=== PATIENT | male | born 1935 | race Caucasian/White ===

== ENCOUNTER 2016-12-19 15:52 | Inpatient (IN) | payer MEDICARE, OTHER ==
[~2016-12-19] VITALS: Ht 180.3 cm; Wt 68.3 kg
[2016-12-19] VITALS (16 sets, daily range): BP systolic 124–220; BP diastolic 74–113; PULSE 94–115; RESP 16–24; TEMP 98.5; O2SAT 95–99
[~2016-12-19 15:52] MED LIST: AMLO5TAB96 PO; ASPI81TA82 PO; ATOR20TA42 PO; BUME1TAB PO; CARV12.52 PO; CEPH500C3 PO; GLIP5 PO; GLUCTAB PO; SITA100 PO; SULF1TAB47 PO; VASO10TA8 PO
[2016-12-19] MEDS ORDERED: SODIUM CHLOR 0.9% 1000 ML INJ 1,000 ML IV ONE (15:55)
--- NOTE | 2016-12-19 16:12 | PD ---
HPI Chief Complaint: Stroke Alert Time Seen by Provider: 15:55 Travel History International Travel<30 days: No Contact w/Intl Traveler<30days: No History of Present Illness HPI The patient's 81 years old. He was last seen normal at approximately 5 hours prior to ER arrival. His left home to go to the chiropractor appointment she had. Upon returning home she found the patient on the floor with furniture strewn about the room. He was somewhat disoriented and his speech was abnormal. Asymmetry of the face was observed and the patient was brought to the ER after approximately 2 hours of observation at home. The patient cannot recall the events of the day and the history is provided primarily by his . He has diabetes and high cholesterol or high blood pressure. He has no history of stroke. The patient takes a baby aspirin daily. PFS Past Medical History Diabetes: Yes Hypertension: Yes Past Surgical History Other Surgery: Yes (l groin) Social History Alcohol Use: No Tobacco Use: No Substance Use: No Allergies-Medications (Allergen,Severity, Reaction): Coded Allergies: No Known Allergies (Unverified , 05/15/13) Reported Meds & Prescriptions Reported Meds & Active Scripts Active Reported Aspirin 81 (Aspirin) 81 Mg Tabdr 81 Mg PO DAILY Lisinopril 10 Mg Tab 10 Mg PO DAILY Amlodipine (Amlodipine Besylate) 5 Mg Tab 5 Mg PO DAILY Zocor (Simvastatin) 10 Mg Tab 10 Mg PO DAILY Metformin (Metformin HCl) 500 Mg Tab 500 Mg PO BIDPC With meals Carvedilol 12.5 Mg Tab 12.5 Mg PO BID Review of Systems Except as stated in HPI: all other systems reviewed are Neg Physical Exam Narrative GENERAL: 81-year-old male mild to moderate distress emesis on the patient's shirt SKIN: Focused skin assessment warm/dry. HEAD: Atraumatic. Normocephalic. EYES: Pupils equal and round. No scleral icterus. No injection or drainage. ENT: No nasal bleeding or discharge. Mucous membranes pink and moist. NECK: Trachea midline. No JVD. CARDIOVASCULAR: Irregular rhythm. Rate approximately 110. RESPIRATORY: No accessory muscle use. Clear to auscultation. Breath sounds equal bilaterally. GASTROINTESTINAL: Abdomen soft, non-tender, nondistended. Hepatic and splenic margins not palpable. MUSCULOSKELETAL: No obvious deformities. No clubbing. No cyanosis. No edema. NEUROLOGICAL: There is a depression of the right nasolabial fold. The handgrip on the right is weak compared to the left. There is a mild pronator drift on the right side. The patient's speech is mildly dysarthric. Patient is a and O 3 however somewhat confused. PSYCHIATRIC: normal affect; insight and judgment normal. Data Data Last Documented VS Vital Signs Date Time Temp Pulse Resp B/P Pulse Ox O2 Delivery O2 Flow Rate FiO2 12/19/16 17:00 115 18 190/99 97 Nasal Cannula 2 Orders Diet Npo (12/19/16 Dinner) Activity Bed Rest (12/19/16 ) Electrocardiogram (12/19/16 ) I-Stat Creatinine (12/19/16 15:55) I-Stat Profile (12/19/16 15:55) Prothrombin Time / Inr (Pt) (12/19/16 15:55) Act Partial Throm Time (Ptt) (12/19/16 15:55) Complete Blood Count With Diff (12/19/16 15:55) Fibrinogen (12/19/16 15:55) Creatine Kinase (Cpk) (12/19/16 15:55) Troponin I (12/19/16 15:55) Ua Includes Microscopic (12/19/16 15:55) Drug Screen, Random Urine (12/19/16 15:55) Type And Screen (12/19/16 15:55) Ct Brain W/O Iv Contrast(Rout) (12/19/16 ) Cta Brain W Iv Contrast W 3d (12/19/16 15:55) Cta Neck W Iv Contrast W 3d (12/19/16 15:55) Consult Neurology (12/19/16 ) Blood Glucose (12/19/16 15:55) Ecg Monitoring (12/19/16 15:55) Neuro Checks Q2HX12,Q4H (12/19/16 15:55) Nursing Bedside Swallow Assess .ONCE (12/19/16 15:55) Iv Access Insert/Monitor (12/19/16 15:55) NPO (12/19/16 15:55) Oximetry (12/19/16 15:55) Oxygen Administration (12/19/16 15:55) Sodium Chlor 0.9% 1000 Ml Inj (Ns 1000 M (12/19/16 15:55) Resp Oxygen Xu C Titrat 1-4 L (12/19/16 15:55) Cath For Specimen (12/19/16 15:55) (Hub Use Only)Inp Phy Cons/Ref (12/19/16 ) Prochlorperazine Inj (Compazine Inj) (12/19/16 16:15) Iohexol 350 Inj (Omnipaque 350 Inj) (12/19/16 16:20) Nicardipine Inj (Cardene Inj) (12/19/16 16:45) Chest, Single Ap (12/19/16 ) Lorazepam Inj (Ativan Inj) (12/19/16 16:45) Lorazepam Inj (Ativan Inj) (12/19/16 16:45) Mri Brain W/O Contrast (12/19/16 ) Lipid Profile (12/19/16 17:52) Clopidogrel (Plavix) (12/20/16 09:00) Echo 2d Comp W/Dopp(Routine) (12/19/16 ) Nih Stroke Scale - Nihss .On admission and discharge (12/19/16 17:53) Neuro Checks Q2HX12,Q4H (12/19/16 17:53) Ot Request For Service (12/19/16 17:53) Consult Pt Eval & Treat (12/19/16 17:53) Swallow Eval W/ St (12/19/16 17:53) Case Management Consult (12/19/16 ) Nursing Bedside Swallow Assess .ONCE (12/19/16 17:53) Scd Bilateral/Knee High CATHI.QSHIFT (12/19/16 17:53) Hemoglobin (Hgb) A1c (12/19/16 17:53) Resp Oxygen Xu C Titrat 1-4 L (12/19/16 ) ^ Hold Medication (12/19/16 17:53) Sodium Chloride 0.9% Flush (Ns Flush) (12/19/16 21:00) Sodium Chloride 0.9% Flush (Ns Flush) (12/19/16 18:00) Bedside Glucose CATHI.AC&HS (12/19/16 17:53) ^ Discontinue Insulin Orders (12/19/16 17:53) Insulin Aspart Supplemtl Scale (Novolog (12/19/16 21:00) Dextrose 50% In Jael (Vial) Inj (D50w (Vi (12/19/16 18:00) Glucagon Inj (Glucagon Inj) (12/19/16 18:00) Consult Rehab Medicine (12/19/16 17:53) Survey Research Center Director / Telemetry CATHI.Q8H (12/19/16 17:53) Consult Stoke Navigator (12/19/16 ) Enoxaparin Inj (Lovenox Inj) (12/19/16 20:00) Scd Bilateral/Knee High CATHI.BID (12/19/16 17:53) Admit Order (Ed Use Only) (12/19/16 17:58) Labs Laboratory Tests Test 12/19/16 12/19/16 16:10 16:20 White Blood Count 13.5 TH/MM3 Red Blood Count 4.58 MIL/MM3 Hemoglobin 14.6 GM/DL Bedside Hemoglobin 15.0 G/DL Hematocrit 43.1 % Bedside Hematocrit 44.0 % Mean Corpuscular Volume 94.1 FL Mean Corpuscular Hemoglobin 31.8 PG Mean Corpuscular Hemoglobin 33.8 % Concent Red Cell Distribution Width 13.3 % Platelet Count 149 TH/MM3 Mean Platelet Volume 9.4 FL Neutrophils (%) (Auto) 89.1 % Lymphocytes (%) (Auto) 6.2 % Monocytes (%) (Auto) 4.2 % Eosinophils (%) (Auto) 0.1 % Basophils (%) (Auto) 0.4 % Neutrophils # (Auto) 12.0 TH/MM3 Lymphocytes # (Auto) 0.8 TH/MM3 Monocytes # (Auto) 0.6 TH/MM3 Eosinophils # (Auto) 0.0 TH/MM3 Basophils # (Auto) 0.1 TH/MM3 CBC Comment AUTO DIFF Differential Comment AUTO DIFF CONFIRMED Platelet Estimate NORMAL Platelet Morphology Comment NORMAL Red Cell Morphology Comment NORMAL Prothrombin Time 12.1 SEC Prothromb Time International 1.1 RATIO Ratio Activated Partial 23.0 SEC Thromboplast Time Fibrinogen 443 mg/dL Bedside Sodium 133 MMOL/L Bedside Potassium 5.2 MMOL/L Bedside Chloride 96 MMOL/L Bedside Blood Urea Nitrogen 19 MG/DL Bedside Creatinine 1.0 MG/DL Bedside Glucose 302 MG/DL Total Creatine Kinase 104 U/L Troponin I LESS THAN 0.02 NG/ML Blood Type A POSITIVE Antibody Screen NEGATIVE Blood Bank Comment Urine Color YELLOW Urine Turbidity CLEAR Urine pH 7.0 Urine Specific [place] 1.019 Urine Protein 100 mg/dL Urine Glucose (UA) 1000 mg/dL Urine Ketones 10 mg/dL Urine Occult Blood SMALL Urine Nitrite NEG Urine Bilirubin NEG Urine Urobilinogen LESS THAN 2.0 MG/DL Urine Leukocyte Esterase NEG Urine RBC LESS THAN 1 /hpf Urine WBC 1 /hpf Urine Hyaline Casts 4 /lpf Microscopic Urinalysis Comment Urine Opiates Screen NEG Urine Barbiturates Screen NEG Urine Amphetamines Screen NEG Urine Benzodiazepines Screen NEG Urine Cocaine Screen NEG Urine Cannabinoids Screen NEG MDM Medical Screen Exam Complete: Yes Emergency Medical Condition: Yes Differential Diagnosis ischemic stroke, hemorrhagic stroke, seizure, Samuel's paralysis Narrative Course Plan of care to electrolytes are to significant for potassium of 5.2, glucose of 302, and a BUN/creatinine ratio of 19/1.00. The case was discussed with Dr. Wong. He was last seen normal 5 hours prior to arrival and is 81 years of age and is therefore not a candidate for TPA. EKG reveals an irregular rhythm with a rate of 110 Case discussed with radiology at about 4:15 PM and there is no acute intracranial pathology on head CT. I spoke with Dr. Slater at 5:20 PM and upon his review of the vascular imaging of the head there is no acute obstructive lesion. Patient remained somewhat agitated however 0.5 mg IV was required to prevent him from continuing to remove his IV access and disrupt care including Cardene gtt. Critical Care Narrative Aggregate critical care time was 45 minutes. Time to perform other separately billable procedures was not included in the critical care time. My time did not include minutes spent treating any other patients simultaneously or on activities that did not directly contribute to the patient's treatment. The services I provided to this patient were to treat and/or prevent clinically significant deterioration that could result in: Permanent neurologic deficit, cardiopulmonary arrest I provided critical care services requiring my management, as noted below: Chart data review, documentation time, medication orders and management, vital sign assessments/reviewing monitor data, ordering and reviewing lab tests, ordering and interpreting/reviewing x-rays and diagnostic studies, care of the patient and discussion of the patient with the admitting physicians. Stroke Alert NIHSS NIH Stroke Scale Result: 6 NIHSS Time Completed: 15:55 Thrombolytic Contraindications Contraindications Comment: The patient arrived to the ER within 6 hours of the onset of symptoms. His vascular imaging revealed no lesion amenable to intervention. The head CT showed no bleed. An 81 years of age arriving in greater than 4.5 hours after onset of symptoms TPA is contraindicated. Diagnosis Diagnosis: Primary Impression: CVA (cerebral vascular accident) Qualified Code: I63.9 - Cerebrovascular accident (CVA), unspecified mechanism Additional Impressions: Hyperkalemia Tachycardia HTN (hypertension) Qualified Code: I10 - Essential hypertension Admitting Physician Requests: Admit Mayito Rivera MD Dec 19, 2016 16:12
[2016-12-19] MEDS ORDERED: PROCHLORPERAZINE INJ 10 MG/2 ML VIAL IV PUSH ONE (16:15)
[2016-12-19 16:20] LABS: I-STAT POTASSIUM 5.2 MMOL/L (3.5-4.9); I-STAT SODIUM 133 MMOL/L (138-146)
[2016-12-19] MEDS ORDERED: IOHEXOL 350 MG/ML 10 ML VIAL (for RAD DIAG) IV ONE (16:20)
[2016-12-19 16:21] LABS: BASOPHIL # 0.1 TH/MM3 (0-0.2); BASOPHIL % 0.4 % (0.0-2.0); EOSINOPHIL % 0.1 % (0.0-4.0); HEMATOCRIT 43.1 % (39.0-51.0); HEMO FLAGS AUTO DIFF; LYMPH % 6.2 % (9.0-44.0); LYMPHOCYTE # 0.8 TH/MM3 (1.0-4.8); MEAN CELL VOLUME 94.1 FL (80.0-100.0); MEAN CORPUSCULAR HEMOGLOBIN 31.8 PG (27.0-34.0); MEAN CORPUSCULAR HGB CONC 33.8 % (32.0-36.0); MONO % 4.2 % (0.0-8.0); NEUT % 89.1 % (16.0-70.0); PLATELET COUNT 149 TH/MM3 (150-450); RED BLOOD COUNT 4.58 MIL/MM3 (4.50-5.90); RED CELL DISTRIBUTION WIDTH 13.3 % (11.6-17.2); WHITE BLOOD COUNT 13.5 TH/MM3 (4.0-11.0)
--- NOTE | 2016-12-19 16:23 | RADRPT ---
EXAM DATE/TIME: 12/19/2016 15:54 [facility] COMPARISON: No previous studies available for comparison. INDICATIONS : Stroke alert. Altered mental status. RADIATION DOSE: 56.35 CTDIvol (mGy) This report was called by Dr. Spann to Dr. Rivera at 1620 MEDICAL HISTORY : Non-responsive. SURGICAL HISTORY : Non-responsive. ENCOUNTER: Initial ACUITY: 1 day PAIN SCALE: Non-responsive LOCATION: cranial TECHNIQUE: Multiple contiguous axial images were obtained of the head. Using automated exposure control and adj ustment of the mA and/or kV according to patient size, radiation dose was kept as low as reasonably a chievable to obtain optimal diagnostic quality images. FINDINGS: CEREBRUM: The ventricles are normal for age. Periventricular areas of increased attenuation are characteristic of moderately severe small vessel ischemic demyelination. No evidence of midline shift, mass lesion, hemorrhage or acute infarction. No extra-axial fluid collections are seen. POSTERIOR FOSSA: Atrophic changes in the left cerebellar hemisphere. Nothing acute. EXTRACRANIAL: The visualized portion of the orbits is intact. Mucoperiosteal thickening in the maxillary antra bila terally SKULL: The calvaria is intact. No evidence of skull fracture. CONCLUSION: 1. 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 2. Atrophic changes in the left cerebellar hemisphere. 3. Nothing acute. Andrea Spann MD on December 19, 2016 at 16:16 Board Certified Radiologist. This report was verified electronically.
[2016-12-19] MEDS ORDERED: METF500T PO (16:37)
[2016-12-19] MEDS ORDERED: ZOCO10TA PO (16:37)
[2016-12-19] MEDS ORDERED: CARV12.52 PO (16:37)
[2016-12-19] MEDS ORDERED: LISI10TA3 PO (16:37)
[2016-12-19] MEDS ORDERED: ASPI-110 PO (16:37)
[2016-12-19] MEDS ORDERED: AMLO5TAB2 PO (16:37)
[2016-12-19] MEDS ORDERED: LORazepam 2 MG/ML VIAL IV PUSH ONE ×2 (16:45)
[2016-12-19] MEDS ORDERED: niCARdipine INJ 25 MG in SODIUM CHLOR 0.9% 250 ML INJ 250 ML IV SCH (16:45)
[2016-12-19 16:46] LABS: INTERNATIONAL NORMALIZED RATIO 1.1 RATIO; PROTHROMBIN TIME - PATIENT 12.1 SEC (9.8-11.6)
--- NOTE | 2016-12-19 16:54 | RADRPT ---
EXAM DATE/TIME: 12/19/2016 16:00 [facility] COMPARISON: CT BRAIN W/O CONTRAST, December 19, 2016, 15:54. INDICATIONS : Stroke alert. AMS. IV CONTRAST: 75 cc Omnipaque 350 (iohexol) IV RADIATION DOSE: 28.36 CTDIvol (mGy) MEDICAL HISTORY : Non-responsive. SURGICAL HISTORY : Non-responsive. ENCOUNTER: Initial ACUITY: 1 day PAIN SCALE: Non-responsive LOCATION: cranial TECHNIQUE: Volumetric scanning was performed using a multi-row detector CT scanner. The data was post processed with a variety of visualization algorithms including full volume maximum intensity projection, multi -planar sliding thin slab reformation, curved planar reformation, and surface rendering techniques. Using automated exposure control and adjustment of the mA and/or kV according to patient size, radiat ion dose was kept as low as reasonably achievable to obtain optimal diagnostic quality images. FINDINGS: There is normal anatomic branching of the great vessels from the aortic arch. The origins of the grea t vessels are widely patent. Right carotid: The right common carotid is widely patent. There is mild atherosclerotic plaquing at the bifurcation. There is only minimal stenosis. The more cephalad portions of internal carotid are widely patent. Left carotid: The common carotid is widely patent. There is mild atherosclerotic plaquing at the bifurcation. This results in approximately 20% stenosis at the bulb. No hemodynamically significant lesion is seen. The more cephalad portions of internal carotid are widely patent. Vertebral circulation: Both vertebral arteries are widely patent. The basilar artery is widely patent. Intracranial circulation: The distal internal carotid circulation is widely patent. The appearance of the anterior and middle c erebral circulation is within normal limits. The basilar is widely patent. The posterior cerebral circulation is widely patent. CONCLUSION: 1. No large or central vessel occlusion identified. The intracranial circulation appears widely paten t. 2. Mild stenosis at the origin of the left internal carotid. 3. The right carotid circulation is widely patent. 4. The vertebral circulation is widely patent. Mayito Slater MD on December 19, 2016 at 16:50 Board Certified Radiologist. This report was verified electronically.
[2016-12-19 16:58] LABS: BLOOD, URINE SMALL (NEG); GLUCOSE,URINE 1000 mg/dL (NEG); HYALINE CAST, URINE 4 /lpf (RARE); KETONE, URINE 10 mg/dL (NEG); NITRITE,URINE NEG (NEG); URINE COLOR YELLOW (YELLW/STRAW)
[2016-12-19 17:03] LABS: AMPHETAMINE, URINE NEG (NEG); BARBITURATES, URINE NEG (NEG); COCAINE, URINE NEG (NEG)
[2016-12-19 17:05] LABS: PLATELET ESTIMATE SMEAR NORMAL (NORMAL); PLATELET MORPHOLOGY NORMAL (NORMAL); SCAN/DIFF AUTO DIFF CONFIRMED
--- NOTE | 2016-12-19 17:23 | RADRPT ---
EXAM DATE/TIME: 12/19/2016 16:00 [facility] COMPARISON: CT BRAIN W/O CONTRAST, December 19, 2016, 15:54. INDICATIONS : Stroke alert, altered mental status. IV CONTRAST: 75 cc Omnipaque 350 (iohexol) IV ; Cumulative dose for multiple exams. RADIATION DOSE: 28.36 CTDIvol (mGy) ; Combined studies MEDICAL HISTORY : Non-responsive. SURGICAL HISTORY : Non-responsive. ENCOUNTER: Initial ACUITY: 1 day PAIN SCALE: Non-responsive LOCATION: neck Elevated flow velocities and ICA/CCA ratios have been found to correlate with increased degrees of vessel stenosis, calculated as percentage of diameter relative to a normal segment of distal ICA/CCA. TECHNIQUE: Volumetric scanning was performed using a multirow detector CT scanner. The data was post processed with a variety of visualization algorithms including full-volume maximum intensity projection, multip lanar sliding thin-slab reformation, curved-planar reformation, and surface-rendering techniques. Us ing automated exposure control and adjustment of the mA and/or kV according to patient size, radiatio n dose was kept as low as reasonably achievable to obtain optimal diagnostic quality images. FINDINGS: AORTIC ARCH: There is a three-vessel origin of the great vessels from the aorta. No evidence of ostial narrowing. RIGHT CAROTID: The common carotid artery is widely patent. There is mild atherosclerotic plaquing at the bifurcation . This results in minimal stenosis at the origin of the right internal carotid. The more cephalad por tion of the carotid is widely patent. LEFT CAROTID: The common carotid is widely patent. There is mild calcified atherosclerotic plaque at the bifurcatio n this results in stenosis of the origin of the internal carotid estimated to range of 10-15% by NASC ET criteria. VERTEBRALS: The vertebral arteries have a symmetric diameter. No stenotic lesions are seen. CONCLUSION: 1. Atherosclerotic plaquing at the origin of the left internal carotid with mild stenosis. 2. Minimal plaquing at the origin the right internal carotid. No hemodynamically significant lesion i s evident. 3. Both vertebral arteries are widely patent. Mayito Slater MD on December 19, 2016 at 17:19 Board Certified Radiologist. This report was verified electronically.
--- NOTE | 2016-12-19 17:24 | RADRPT ---
EXAM DATE/TIME: 12/19/2016 16:53 [facility] COMPARISON: No previous studies available for comparison. INDICATIONS : Fall and difficulty breathing. MEDICAL HISTORY : unobtainable SURGICAL HISTORY : unobtainable ENCOUNTER: Initial ACUITY: 1 day PAIN SCORE: Non-responsive. LOCATION: Bilateral upper chest FINDINGS: The heart is normal in size. The lungs are clear. No pneumothorax is seen. The visualized bony struct ures are grossly intact. CONCLUSION: 1. No acute cardiopulmonary findings. Mayito Slater MD on December 19, 2016 at 17:21 Board Certified Radiologist. This report was verified electronically.
[2016-12-19 17:30] LABS: CREATINE KINASE 104 U/L (39-308)
[2016-12-19] MEDS ORDERED: GLUCAGON 1 MG/ML VIAL IM/SQ PRN (18:00)
[2016-12-19] MEDS ORDERED: DEXTROSE 50% IN WATER 50 ML VIAL(D50) IV PUSH PRN (18:00)
[2016-12-19] MEDS ORDERED: SODIUM CHLORIDE 0.9% FLUSH 10 ML FLUSH IV FLUSH PRN ×2 (18:00→18:15)
--- NOTE | 2016-12-19 18:06 | HHI.HP ---
[facility] Gabrielle Mcmahan Admission Diagnosis CVA Alert Diagnoses: Travel History International Travel<30 Days: No Contact w/Intl Traveler <30 Da: No History of Present Illness This is an 81-year-old male with past medical history diabetes, hypertension and hyperlipidemia. Patient presented as a stroke alert. Patient was last seen normal proximally 5 hours prior to ER arrival. Information is obtained from the medical record and from the patient's . According to the , she had gone to the chiropractor and when she returned home she found the patient on the floor and he appeared to be sleeping. She woke him up, and noted that his speech was not making sense, she also noted some asymmetry to the right face. At that time, she call for [employer] neighbors who carried the patient to the car and brought him to the emergency room. There is no prior history of stroke. Patient does take a baby aspirin. In the emergency room, patient was evaluated in neuro workup was initiated. Case was discussed with Dr. Wong. Patient not a candidate for TPA as he was out of window of time. EKG was completed shows irregular rhythm with rate of 110. Imaging studies were completed as noted below. Last Impressions Neck CTA 12/19/161554 Signed Impressions: Service Date/Time: Monday, December 19, 2016 16:00 - CONCLUSION: 1. Atherosclerotic plaquing at the origin of the left internal carotid with mild stenosis. 2. Minimal plaquing at the origin the right internal carotid. No hemodynamically significant lesion is evident. 3. Both vertebral arteries are widely patent. Mayito Slater MD Head CTA 12/19/16 1555 Signed Impressions: Service Date/Time: Monday, December 19, 2016 16:00 - CONCLUSION: 1. No large or central vessel occlusion identified. The intracranial circulation appears widely patent. 2. Mild stenosis at the origin of the left internal carotid. 3. The right carotid circulation is widely patent. 4. The vertebral circulation is widely patent. Mayito Slater MD Head CT 12/19/16 0000 Signed Impressions: Service Date/Time: Monday, December 19, 2016 15:54 - CONCLUSION: 1. 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 2. Atrophic changes in the left cerebellar hemisphere. 3. Nothing acute. Andrea Spann MD Chest X-Ray 12/19/16 0000 Signed Impressions: Service Date/Time: Monday, December 19, 2016 16:53 - CONCLUSION: 1. No acute cardiopulmonary findings. Mayito Slater MD Blood pressure was initially elevated 220/103, heart rate up to 115. Patient appears to be in sinus tachycardia. Patient was noted agitated, Ativan 0.5 mg IV was given. A Cardene drip was also initiated due to high blood pressure. Patient is now examined in the emergency room, he is more calm, he does awake to voice and is oriented to place, able to name hospital. Provide his name, and 's When asked the year, he gives date of . Patient doesn't have recall why he came here. He does endorse that he did feel dizzy today, especially when he got out of bed. According to the yesterday he told her he was not feeling well and complaining of his legs feeling weak and painful. Patient is noted with a right facial droop. He is having some difficulty recalling events, speech is slightly dysarthric. There is no pronator drift noted. He is following simple commands. He is asking for something to drink. Patient is admitted for further evaluation and treatment. Review of Systems ROS Limitations: Altered Mental Status Constitutional: COMPLAINS OF: Dizziness Past Family Social History Past Medical History Hypertension Type 2 diabetes Hyperlipidemia Past Surgical History Left groin surgery Lump removal from scalp Reported Medications Reported Meds & Active Scripts Active Reported Aspirin 81 (Aspirin) 81 Mg Tabdr 81 Mg PO DAILY Lisinopril 10 Mg Tab 10 Mg PO DAILY Amlodipine (Amlodipine Besylate) 5 Mg Tab 5 Mg PO DAILY Zocor (Simvastatin) 10 Mg Tab 10 Mg PO DAILY Metformin (Metformin HCl) 500 Mg Tab 500 Mg PO BIDPC With meals Carvedilol 12.5 Mg Tab 12.5 Mg PO BID Allergies: Coded Allergies: No Known Allergies (Unverified , 05/15/13) Active Ordered Medications Inpatient Medications Clopidogrel Bisulfate (Plavix) 75 mg DAILY PO ; Start 12/20/16 at 09:00 Dextrose (D50w (Vial) Inj) 25 ml UNSCH PRN IV PUSH HYPOGLYCEMIA-SEE COMMENTS; Start 12/19/16 at 18:00 Enoxaparin Sodium (Lovenox Inj) 40 mg Q24H SQ ; Start 12/19/16 at 20:00 Glucagon (Glucagon Inj) 1 mg UNSCH PRN IM/SQ HYPOGLYCEMIA-SEE COMMENTS; Start 12/19/16 at 18:00 Insulin Aspart (NovoLOG SUPPLEMENTAL SCALE) 1 ACHS SLIDING SCALE SQ ; Start 12/19/16 at 21:00 Lorazepam (Ativan Inj) 0.25 mg ONCE ONCE IV PUSH Last administered on 16:43; Start 12/19/16 at 16:45; Stop 12/19/16 at 16:46; Status DC Nicardipine HCl/ Sodium Chloride (Cardene Inj/NS 250 ml Inj) 260 ml @ 0 mls/hr TITRATE IV Last administered on 12/19/16 17:08; Start 12/19/16 at 16:45 Prochlorperazine Edisylate 10 mg 10 mg ONCE ONCE IV PUSH Last administered on 12/19/16 16:15; Start 12/19/16 at 16:15; Stop 12/19/16 at 16:16; Status DC Sodium Chloride (NS 1000 ml Inj) 1,000 ml @ 70 mls/hr [id number] ONCE IV Last administered on 12/19/16 16:15; Start 12/19/16 at 15:55; Stop 12/20/16 at 06:12 Sodium Chloride (NS Flush) 2 ml UNSCH PRN IV FLUSH FLUSH AFTER USING IV ACCESS ; Start 12/19/16 at 18:00 Family History Per , his mother of old age, she's not sure of their past medical history. Social History Patient is , lives at home with . He has 2 grown children whom he has very little contact with. Patient remains relatively active, he still drives, doesn't use any assistive devices. He is slow to move around but otherwise remains active. Physical Exam Vital Signs Vital Signs Date Time Temp Pulse Resp B/P Pulse Ox O2 Delivery O2 Flow Rate FiO2 12/19/16 17:00 115 18 190/99 97 Nasal Cannula 2 12/19/16 16:15 111 18 189/99 98 Room Air 12/19/16 16:12 112 18 205/113 98 Nasal Cannula 2 12/19/16 16:00 111 24 220/103 98 Nasal Cannula 2 12/19/16 15:56 112 20 196/104 99 Nasal Cannula 2 12/19/16 15:55 94 18 220/99 95 12/19/16 15:55 112 22 99 Nasal Cannula 2 12/19/16 15:52 16 95 Room Air 12/19/16 15:52 95 Nasal Cannula 2 Physical Exam GENERAL: This is a well-nourished, well-developed patient, in no apparent distress. SKIN: Abrasions noted to both elbows HEAD: Atraumatic. Normocephalic. No temporal or scalp tenderness. EYES: Pupils equal round and reactive. Extraocular motions intact. No scleral icterus. No injection or drainage. ENT: Nose without bleeding, purulent drainage or septal hematoma. Throat without erythema, tonsillar hypertrophy or exudate. Uvula midline. Airway patent. NECK: Trachea midline. No JVD or lymphadenopathy. Supple, nontender, no meningeal signs. CARDIOVASCULAR: S1 and S2, sinus tachycardia. Unable to detect any murmurs rubs or gallops. RESPIRATORY: Clear to auscultation. Breath sounds equal bilaterally. No wheezes , rales, or rhonchi. GASTROINTESTINAL: Abdomen soft, non-tender, nondistended. No hepato-splenomegaly , or palpable masses. No guarding. MUSCULOSKELETAL: Extremities without clubbing, cyanosis, or edema. No joint tenderness, effusion, or edema noted. No calf tenderness. Negative Homans sign bilaterally. NEUROLOGICAL: Awakes to voice, oriented to place, self, others. Following simple commands. Bilateral upper extremity strength 4 out of 5. Lower extremity strength 4 out of 5. Slight right facial droop. Speech slightly dysarthric. Laboratory Laboratory Tests Test 12/19/16 12/19/16 16:10 16:20 White Blood Count 13.5 Red Blood Count 4.58 Hemoglobin 14.6 Bedside Hemoglobin 15.0 Hematocrit 43.1 Bedside Hematocrit 44.0 Mean Corpuscular Volume 94.1 Mean Corpuscular Hemoglobin 31.8 Mean Corpuscular Hemoglobin 33.8 Concent Red Cell Distribution Width 13.3 Platelet Count 149 Mean Platelet Volume 9.4 Neutrophils (%) (Auto) 89.1 Lymphocytes (%) (Auto) 6.2 Monocytes (%) (Auto) 4.2 Eosinophils (%) (Auto) 0.1 Basophils (%) (Auto) 0.4 Neutrophils # (Auto) 12.0 Lymphocytes # (Auto) 0.8 Monocytes # (Auto) 0.6 Eosinophils # (Auto) 0.0 Basophils # (Auto) 0.1 CBC Comment AUTO DIFF Differential Comment AUTO DIFF CONFIRMED Platelet Estimate NORMAL Platelet Morphology Comment NORMAL Red Cell Morphology Comment NORMAL Prothrombin Time 12.1 Prothromb Time International 1.1 Ratio Activated Partial 23.0 Thromboplast Time Fibrinogen 443 Bedside Sodium 133 Bedside Potassium 5.2 Bedside Chloride 96 Bedside Blood Urea Nitrogen 19 Bedside Creatinine 1.0 Bedside Glucose 302 Total Creatine Kinase 104 Troponin I LESS THAN 0.02 Blood Type A POSITIVE Antibody Screen NEGATIVE Blood Bank Comment Urine Color YELLOW Urine Turbidity CLEAR Urine pH 7.0 Urine Specific Ector 1.019 Urine Protein 100 Urine Glucose (UA) 1000 Urine Ketones 10 Urine Occult Blood SMALL Urine Nitrite NEG Urine Bilirubin NEG Urine Urobilinogen LESS THAN 2.0 Urine Leukocyte Esterase NEG Urine RBC LESS THAN 1 Urine WBC 1 Urine Hyaline Casts 4 Microscopic Urinalysis Comment Urine Opiates Screen NEG Urine Barbiturates Screen NEG Urine Amphetamines Screen NEG Urine Benzodiazepines Screen NEG Urine Cocaine Screen NEG Urine Cannabinoids Screen NEG Result Diagram: 12/19/16 1610 Imaging Last Impressions Neck CTA 12/19/16 1555 Signed Impressions: Service Date/Time: Monday, December 19, 2016 16:00 - CONCLUSION: 1. Atherosclerotic plaquing at the origin of the left internal carotid with mild stenosis. 2. Minimal plaquing at the origin the right internal carotid. No hemodynamically significant lesion is evident. 3. Both vertebral arteries are widely patent. Mayito Slater MD Head CTA 12/19/16 1555 Signed Impressions: Service Date/Time: Monday, December 19, 2016 16:00 - CONCLUSION: 1. No large or central vessel occlusion identified. The intracranial circulation appears widely patent. 2. Mild stenosis at the origin of the left internal carotid. 3. The right carotid circulation is widely patent. 4. The vertebral circulation is widely patent. Mayito Slater MD Head CT 12/19/16 0000 Signed Impressions: Service Date/Time: Monday, December 19, 2016 15:54 - CONCLUSION: 1. 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 2. Atrophic changes in the left cerebellar hemisphere. 3. Nothing acute. Andrea Spann MD Chest X-Ray 12/19/16 0000 Signed Impressions: Service Date/Time: Monday, December 19, 2016 16:53 - CONCLUSION: 1. No acute cardiopulmonary findings. Mayito Slater MD Assessment and Plan Problem List: (1) CVA (cerebral vascular accident) (2) HTN (hypertension) (3) Diabetes 1.5, managed as type 2 (4) Hyperkalemia (5) Tachycardia (6) Hyperlipidemia Assessment and Plan Admitted to Dr. Al 81-year-old male with history hypertension, hyperlipidemia and type 2 diabetes. Presented to the emergency room with slurred speech, disoriented, facial asymmetry. Patient did not meet criteria for TPA. 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 Acute CVA -Continue with neuro checks -Continue with Plavix 75 mg by mouth daily, resume baby aspirin Neurology consultation, patient has been evaluated by Dr. Wong her input is appreciated. Neuro workup has been initiated -MRI of the brain has been ordered, follow up on results Imaging studies have been reviewed Normal saline at 70 an hour Head of bed down We'll have nursing perform a bedside swallow, keep NPO for now PT, OT, ST has been ordered -Lipid profile and hemoglobin A1c Type 2 diabetes, blood glucose uncontrolled Accu-Cheks before meals and at bedtime with insulin therapy as needed Hypertension, initially uncontrolled now improving. Was started on Cardene drip in the emergency room. -Permissive hypertension Wean off Cardene drip -Resume home medications tomorrow, Coreg, lisinopril, Norvasc Sinus tachycardia, patient was initially agitated. Heart rate is coming down. Continuous cardiac telemetry Continue to monitor for now Hyperlipidemia Lipid profile has been ordered Resume Zocor 10 mg by mouth daily Hyperkalemia Repeat BMP in the morning SCDs and Lovenox for DVT prophylaxis Home medications have been reviewed, initiated as indicated Plan of care has been discussed with the patient and his , their questions answered detail. Plan of care discussed with attending and registered nurse. Further management of the patient will be dependent on the hospital course This patient was seen by myself and Dr. Al, this H&P is written on her behalf Physician Certification 2 Midnight Certification Type: Admission for Inpatient Services Order for Inpatient Services The services are ordered in accordance with Medicare regulations or non- Medicare payer requirements, as applicable. In the case of services not specified as inpatient-only, they are appropriately provided as inpatient services in accordance with the 2-midnight benchmark. Estimated LOS (days): 2 2 days is the estimated time the patient will need to remain in the hospital, assuming treatment plan goals are met and no additional complications. Post-Hospital Plan: Not yet determined Problem Qualifiers (1) CVA (cerebral vascular accident): Qualified Code: I63.9 - Cerebrovascular accident (CVA), unspecified mechanism (2) HTN (hypertension): Qualified Code: I10 - Essential hypertension (3) Hyperlipidemia: Qualified Code: E78.5 - Hyperlipidemia, unspecified hyperlipidemia type Josee JuarezP Dec 19, 2016 18:06
[2016-12-19] MEDS ORDERED: ONDANSETRON HCL 4 MG/2 ML VIAL IVP PRN (18:15)
[2016-12-19] MEDS ORDERED: NALOXONE HCL 0.4 MG/ML AMP IV PRN (18:15)
[2016-12-19] MEDS ORDERED: ACETAMINOPHEN 325 MG TAB PO PRN (18:15)
[2016-12-19] MEDS: ENOXAPARIN SODIUM 40 MG/0.4 ML SYRINGE SQ SCH (20:00)
[2016-12-19] MEDS: SODIUM CHLORIDE 0.9% FLUSH 10 ML FLUSH IV FLUSH SCH (20:05)
[2016-12-19] MEDS: CARVEDILOL 12.5 MG TAB PO SCH (20:05)
[2016-12-19] MEDS ORDERED: CHLORHEXIDINE GLUCONATE 2 % 1 PACK (2 CLOTHS)(extra cloths) TOPICAL PRN (20:45)
[2016-12-19] MEDS: INSULIN ASPART SUPPLEMENTAL SCALE SQ SCH (21:00)
[2016-12-19] MEDS ORDERED: SODIUM CHLORIDE 0.9% FLUSH 10 ML FLUSH IV FLUSH SCH (21:00)
[2016-12-19] MEDS: CHLORHEXIDINE GLUCONATE 2 % 1 PACK (2 CLOTHS)(taper/protocol) TOPICAL SCH (21:00)
--- NOTE | 2016-12-19 21:08 | RADRPT ---
EXAM DATE/TIME: 12/19/2016 20:04 [facility] COMPARISON: CT BRAIN W/O CONTRAST, December 19, 2016, 15:54. INDICATIONS : Inability to ambulate. Altered mental status. MEDICAL HISTORY : Hypertension. Diabetes mellitus type 2. SURGICAL HISTORY : None. ENCOUNTER: Initial ACUITY: 1 day PAIN SCORE: 0/10 LOCATION: Cranial TECHNIQUE: Multiplanar, multisequence MRI of the brain was performed without contrast. FINDINGS: The ventricles and cortical sulci are mildly widened. There is some mild increased sig nal seen in the periventricular white matter on the FLAIR images. No areas of abnormality are seen i n the diffusion weighted images to suggest acute infarction. There is encephalomalacia involving the inferior left cerebellar hemisphere. There is mucosal disease at the maxillary sinuses bilaterally. 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 CONCLUSION: 1. No acute intracranial abnormality is seen. 2. Age related atrophy and suspected small vessel ischemic change in the periventricular white matter . 3. 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 4. Maxillary sinus disease. Dheeraj Severino MD on December 19, 2016 at 20:43 Board Certified Radiologist. This report was verified electronically.
[2016-12-19 21:40] LABS: HEMOGLOBIN A1a 1.8 %; HEMOGLOBIN A1b 1.1 %; HEMOGLOBIN Ao 75.5 %; HEMOGLOBIN F 1.7 %; HEMOGLOBIN LA1C 3.3 %
--- NOTE | 2016-12-19 22:33 | MB ---
cc: BAKARI MILES MD DATE OF CONSULTATION 12/19/16 DATE OF 35 REASON FOR CONSULTATION Stroke alert. HISTORY OF PRESENT ILLNESS The patient is an 81-year-old man who his had seen last normal at 11 o'clock five hours prior to arrival. She had left apparently to go to an appointment. When she came home, she found him on the floor with the furniture thrown about the room, disoriented, speech was abnormal, facial asymmetry, came into the ER. The patient is a poor historian, cannot give me any history. PAST MEDICAL HISTORY 1. Diabetes, 2. Hyperlipidemia, 3. Hypertension. 4. No past history of stroke. He takes a baby aspirin daily. SOCIAL HISTORY He is . He has a smoking history, tobacco use. No alcohol. No substance abuse history. ALLERGIES None reported MEDICATIONS Home medicines 1. Baby aspirin 81 mg 2. Lisinopril 10 mg daily, 3. Amlodipine 5 mg daily, 4. Zocor 10 mg daily, 5. Metformin 500 mg b.i.d. 6. Carvedilol 12.5 mg b.i.d. PHYSICAL EXAMINATION VITAL SIGNS: On exam, temperature not taken, heart rate 115, respiratory rate 18, blood pressure 190/99 satting at 97% 2 liters nasal cannula. NECK: Supple. HEART: Tachycardiac. LUNGS: Clear. NEUROLOGIC: He is awake and alert. Follows commands intermittently. Pupils reactive. It looks like there is a facial asymmetry. However, the patient will not smile for me. He does stick his tongue out. It is midline. Facial sensation seems normal. Pupils reactive. Motor mendez, he lifts both arms up, has maybe a little difficulty with the right leg. DTRs are 1+. Toes neutral. He will not follow for cerebellar or gait. He did state his name for me. He does sound a little dysarthric and hoarse, also asks for water but very intermittently will follow. Was not able to state his 's name. LABORATORY DATA His labs are reviewed. White count 13.5, hemoglobin 14.6, platelets 149,000, neutrophils 89.1. Coag panel - PTT 223, fibrinogen 443. Chemistries - sodium 133, potassium 56, glucose 302, troponin less than 0.02. Toxicology was negative. Urine 100, protein 1000 glucose, small blood. IMAGING STUDIES CT head - chronic changes with moderately severe periventricular small vessel disease, atrophy in the left cerebellar hemisphere nothing acute. Head CTA - no large vessel occlusion, intracranial circulation widely patent, mild stenosis left internal carotid, right circ and carotids patent. Vertebral circulation is patent. Carotid CTA - atherosclerotic plaquing origin left ICA with mild , mild plaquing of the origin right ICA. No significant lesion. Both vertebral arteries widely patent. IMPRESSION An 81-year-old man with probable stroke, questionable aphasia. At this point, he has multiple risk factors for stroke, diabetic, hypertensive and hyperlipidemic. Recommend getting an MRI of the brain, 2-D echo, change him to Plavix 75 mg a day. Check a lipid panel. Correct his electrolytes. Maintain fluids, treat him with carvedilol if his blood pressure is over 200/100s. Do not lower her below 140 systolic. PT, OT, speech therapy, subcu heparin versus Lovenox for DVT, prophylaxis with SCDs. We will get a lipid panel if it is not already ordered. Further recommendations to be made. MD LINDA Moore/ /5:49 PM /10:13 PM
[2016-12-20] VITALS (11 sets, daily range): BP systolic 117–138; BP diastolic 61–77; PULSE 74–86; RESP 12–19; TEMP 95–98.9; O2SAT 89–98
[2016-12-20 04:44] LABS: BICARBONATE 28.7 MEQ/L (21.0-32.0); POTASSIUM 3.4 MEQ/L (3.5-5.1)
[2016-12-20 04:46] LABS: HDL CHOLESTEROL 46.6 MG/DL (40.0-60.0)
[2016-12-20 04:48] LABS: AUTOMATED NEUTROPHIL # 5.3 TH/MM3 (1.8-7.7); BASOPHIL % 0.3 % (0.0-2.0); EOSINOPHIL % 0.3 % (0.0-4.0); HEMO FLAGS DIFF FINAL; LYMPH % 16.5 % (9.0-44.0); LYMPHOCYTE # 1.2 TH/MM3 (1.0-4.8); MEAN CELL VOLUME 92.6 FL (80.0-100.0); MEAN CORPUSCULAR HEMOGLOBIN 31.2 PG (27.0-34.0); MEAN CORPUSCULAR HGB CONC 33.7 % (32.0-36.0); MONO % 7.9 % (0.0-8.0); PLATELET COUNT 144 TH/MM3 (150-450); RED BLOOD COUNT 3.89 MIL/MM3 (4.50-5.90); RED CELL DISTRIBUTION WIDTH 13.1 % (11.6-17.2)
[2016-12-20 04:49] LABS: BLOOD, URINE SMALL (NEG); GLUCOSE,URINE 1000 mg/dL (NEG); KETONE, URINE 40 mg/dL (NEG); MUCUS URINE FEW /lpf (OCC); NITRITE,URINE NEG (NEG); PH, URINE 5.5 (5.0-8.5); SQUAMOUS EPITHELIAL CELL URINE <1 /hpf (0-5); URINE COLOR YELLOW (YELLW/STRAW)
[2016-12-20 04:51] LABS: COMMENT (UR) CATH-CULT NOT IND; CULTURE IF INDICATED CATH CULTURE NOT IND
[2016-12-20] MEDS: INSULIN ASPART SUPPLEMENTAL SCALE SQ SCH ×4 (06:32→21:00)
[2016-12-20] MEDS ORDERED: POTASSIUM CHLORIDE 20 MEQ CONTROLLED RELEASE TAB PO ONE (09:00)
[2016-12-20] MEDS: SODIUM CHLORIDE 0.9% FLUSH 10 ML FLUSH IV FLUSH SCH ×2 (09:00→21:04)
--- NOTE | 2016-12-20 09:40 | HHI.PR ---
Subjective Remarks Ventilator dependent Occasional facial gestures peripheral edema skin color pink does not obey commands afebrile (Shira Kaur) Objective Objective Results - Vital Signs Date Time Temp Pulse Resp B/P Pulse Ox O2 Delivery O2 Flow Rate FiO2 12/20/16 07:32 98 21 12/20/16 06:00 80 12/20/16 04:00 86 12/20/16 04:00 97.6 86 18 138/77 97 12/20/16 02:00 77 12/20/16 00:00 98.8 82 16 128/68 95 12/20/16 00:00 85 12/19/16 23:51 96 12/19/16 22:00 97 12/19/16 21:55 101 12/19/16 21:00 98.5 113 17 138/86 95 12/19/16 20:30 109 12/19/16 20:06 110 16 124/85 99 Nasal Cannula 2 12/19/16 20:00 99 Nasal Cannula 2.00 12/19/16 20:00 113 18 97 Nasal Cannula 2 12/19/16 18:00 112 16 137/74 99 Nasal Cannula 2 12/19/16 17:30 114 20 155/90 98 Room Air 12/19/16 17:00 115 18 190/99 97 Nasal Cannula 2 12/19/16 16:15 111 18 189/99 98 Room Air 12/19/16 16:12 112 18 205/113 98 Nasal Cannula 2 12/19/16 16:00 111 24 220/103 98 Nasal Cannula 2 12/19/16 15:56 112 20 196/104 99 Nasal Cannula 2 12/19/16 15:55 94 18 220/99 95 12/19/16 15:55 112 22 99 Nasal Cannula 2 12/19/16 15:52 16 95 Room Air 12/19/16 15:52 95 Nasal Cannula 2 I/O 12/19/16 12/19/16 12/19/16 12/20/16 12/20/16 12/20/16 07:00 15:00 23:00 07:00 15:00 23:00 Intake Total 479 ml 696 ml Output Total 0 ml 660 ml Balance 479 ml 36 ml Intake Oral 400 ml 200 ml IV Total 79 ml 496 ml Output Urine Total 0 ml 660 ml # Bowel Movements 0 0 (Shira Kaur) Result Diagram: 12/20/16 0324 12/20/16 0324 Other Results Last Impressions Neck CTA 12/19/16 1555 Signed Impressions: Service Date/Time: Monday, December 19, 2016 16:00 - CONCLUSION: 1. Atherosclerotic plaquing at the origin of the left internal carotid with mild stenosis. 2. Minimal plaquing at the origin the right internal carotid. No hemodynamically significant lesion is evident. 3. Both vertebral arteries are widely patent. Mayito Slater MD Head CTA 12/19/16 1555 Signed Impressions: Service Date/Time: Monday, December 19, 2016 16:00 - CONCLUSION: 1. No large or central vessel occlusion identified. The intracranial circulation appears widely patent. 2. Mild stenosis at the origin of the left internal carotid. 3. The right carotid circulation is widely patent. 4. The vertebral circulation is widely patent. Mayito Slater MD Head CT 12/19/16 0000 Signed Impressions: Service Date/Time: Monday, December 19, 2016 15:54 - CONCLUSION: 1. 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 2. Atrophic changes in the left cerebellar hemisphere. 3. Nothing acute. Andrea Spann MD Chest X-Ray 12/19/16 0000 Signed Impressions: Service Date/Time: Monday, December 19, 2016 16:53 - CONCLUSION: 1. No acute cardiopulmonary findings. Mayito Slater MD Brain MRI 12/19/16 0000 Signed Impressions: Service Date/Time: Monday, December 19, 2016 20:04 - CONCLUSION: 1. No acute intracranial abnormality is seen. 2. Age related atrophy and suspected small vessel ischemic change in the periventricular white matter. 3. 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 4. Maxillary sinus disease. Dheeraj Severino MD Medications and IVs Active Medications Acetaminophen (Tylenol) 650 mg Q4H PRN PO; Start 12/19/16 at 18:15 Amlodipine Besylate (Norvasc) 5 mg DAILY PO; Start 12/20/16 at 09:00 Aspirin (Ecotrin Ec) 81 mg DAILY PO; Start 12/20/16 at 09:00 Carvedilol (Coreg) 12.5 mg BID PO; Start 12/19/16 at 21:00 Chlorhexidine Gluconate (Chlorhexidine 2% Cloth) 3 pack DAILY@04 TOPICAL Last administered on 12/19/16 21:00; Admin Dose 3 PACK; Start 12/20/16 at 04:00; Stop 12/24/16 at 04:01 Chlorhexidine Gluconate (Chlorhexidine 2% Cloth) 3 pack UNSCH PRN TOPICAL; Start 12/19/16 at 20:45; Stop 12/24/16 at 20:32 Clopidogrel Bisulfate (Plavix) 75 mg DAILY PO; Start 12/20/16 at 09:00 Dextrose (D50w (Vial) Inj) 25 ml UNSCH PRN IV PUSH; Start 12/19/16 at 18:00 Enoxaparin Sodium (Lovenox Inj) 40 mg Q24H SQ Last administered on 12/19/16 20: 00; Admin Dose 40 MG; Start 12/19/16 at 20:00 Glucagon (Glucagon Inj) 1 mg UNSCH PRN IM/SQ; Start 12/19/16 at 18:00 Iohexol 75 ml 75 ml STK-MED ONCE IV Last administered on 12/19/16 16:20; Admin Dose 75 ML; Start 12/19/16 at 16:20; Stop 12/19/16 at 16:21; Status DC Lisinopril (Prinivil) 10 mg DAILY PO; Start 12/20/16 at 09:00 Lorazepam (Ativan Inj) 0.25 mg ONCE ONCE IV PUSH Last administered on 12/19/16 16:43; Admin Dose 0.25 MG; Start 12/19/16 at 16:45; Stop 12/19/16 at 16:46; Status DC Lorazepam (Ativan Inj) 0.5 mg ONCE ONCE IV PUSH; Start 12/19/16 at 16:45; Stop 12/19/16 at 16:45; Status DC Miscellaneous Information Patient in critical care unit? Ass... [id number] .XX; Start 12/19/16 at 20:45 Naloxone HCl (Narcan Inj) 0.4 mg UNSCH PRN IV; Start 12/19/16 at 18:15 Nicardipine HCl/ Sodium Chloride (Cardene Inj/NS 250 ml Inj) 260 ml @ 0 mls/hr TITRATE IV Last administered on 12/19/16 17:08; Admin Dose 0 MLS/HR; Start at 16:45 Ondansetron HCl (Zofran Inj) 4 mg Q6H PRN IVP; Start 12/19/16 at 18:15 Potassium Bicarb/ Potassium Chloride (K-Lyte Cl Eff) 25 meq ONCE ONCE PO; Start 12/20/16 at 09:30; Stop 12/20/16 at 09:31; Status UNV Potassium Chloride (KCl) 20 meq ONCE ONCE PO; Start 12/20/16 at 09:00; Stop 12/20 at 09:01; Status Cancel Pravastatin Sodium (Pravachol) 20 mg DAILY PO; Start 12/20/16 at 09:00 Prochlorperazine Edisylate (Compazine Inj) 10 mg ONCE ONCE IV PUSH Last administered on 12/19/16 16:15; Admin Dose 10 MG; Start 12/19/16 at 16:15; Stop 12/19/16 at 16:16; Status DC Sodium Chloride (NS 1000 ml Inj) 1,000 ml @ 70 mls/hr [id number] ONCE IV Last administered on 12/19/16 16:15; Admin Dose 70 MLS/HR; Start 12/19/16 at 15:55; Stop 12/20/16 at 06:12; Status DC Sodium Chloride (NS Flush) 2 ml BID IV FLUSH; Start 12/19/16 at 21:00; Stop at 21:00; Status DC Sodium Chloride (NS Flush) 2 ml BID IV FLUSH; Start 12/19/16 at 21:00 Sodium Chloride (NS Flush) 2 ml UNSCH PRN IV FLUSH; Start 12/19/16 at 18:00 Sodium Chloride (NS Flush) 2 ml UNSCH PRN IV FLUSH; Start 12/19/16 at 18:15; Stop 12/19/16 at 18:15; Status DC (Shira Kaur) ROS General: Weakness (generalized), Other (10 point ROS done. Positives include generalized edema in his trunk and extremities and scrotum, ventilator management, CVA, other systems negative or unremarkable for now) Cardiac: Edema (generalized) Pulmonary: Other (ventilator) /LDR RN: Other (scrotal edema) (Shira Kaur) Physical Exam Physical Exam PHYSICAL EXAMINATION GENERAL: This is a obese male who is currently on ventilator management nonresponsive to commands. HEAD: Normocephalic OROPHARYNGEAL: Oropharynx without erythema or edema., ET tube in secured NECK: Supple. Trachea midline without deviation. CARDIAC: Regular rhythm, regular rate, S1 and S2 are heard. LUNGS: Diminished to auscultation bilaterally. Occasional wheeze, mild rhonchi No use of accessory muscles on inspiration or expiration. ABDOMEN: obese, taut, no organomegaly or masses. Bowel sounds are heard EXTREMITIES: 3+ - 4+edema lower extremities, scrotum, upper extremities. Pulses palpable DP, NEUROLOGICAL: Minimal facial and eye movement, not responding to commands SKIN:Warm and moist (Shira Kaur) A/P Assessment and Plan (1) CVA (cerebral vascular accident) (2) HTN (hypertension) (3) Diabetes 1.5, managed as type 2 (4) Hyperkalemia (5) Tachycardia (6) Hyperlipidemia Assessment and Plan Admitted to Dr. Al 81-year-old male with history hypertension, hyperlipidemia and type 2 diabetes. Presented to the emergency room with slurred speech, disoriented, facial asymmetry. Patient did not meet criteria for TPA. 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 Acute CVA, neuro checks Medical management Neurology consultation, patient has been evaluated by Dr. Wong, appreciate input Generalized peripheral edema. IV Lasix 20 mg twice a day for now with supplement potassium. Patient has 3-4+ pitting edema in his lower extremities, trunk, scrotum and upper extremities. We'll monitor his active diuresis. Perdue catheter. . Turned every 2 and elevate scrotum. We'll have nursing perform a bedside swallow, keep NPO for now, gastric tube for meds PT, OT, ST has been ordered Type 2 diabetes, blood glucose uncontrolled Accu-Cheks before meals and at bedtime with insulin therapy as needed Hemoglobin A1c elevated 11.4, noncompliance noted Hypertension, now controlled, monitor Sinus tachycardia, resolved, by mouth Coreg and Cardene drip continues Continuous monitoring Hyperlipidemia Lipid profile has been ordered Resume Zocor 10 mg oral Hypokalemia mild, dose ordered for today, and daily while patient is on IV diuretics BMP in the morning SCDs and Lovenox for DVT prophylaxis Home medications have been reviewed, initiated as indicated Plan of care has been discussed with the patient and his , their questions answered detail. Plan of care discussed with attending and registered nurse. Further management of the patient will be dependent on the hospital course Discussed With: Nurse (RN), Family, Other (Dr. Al) (Shira Kaur) Assessment and Plan patient seen and examined has been off cardene gtt awake alert and oriented speech appears normal diet advanced on ASA/ PLavix MRI neg ok to transfer to floor with tele, if BP remains stable discussed with patient discussed with nursing staff discussed with Shira TAMAYO (Renita Al MD) Shira Kaur Dec 20, 2016 09:40 Renita Al MD Dec 20, 2016 11:40
[2016-12-20] MEDS ORDERED: POTASSIUM CHLORIDE 25 MEQ EFFERVESCENT TAB PO ONE (10:00)
[2016-12-20] MEDS: amLODIPine BESYLATE 5 MG TAB PO SCH (10:13)
[2016-12-20] MEDS: CLOPIDOGREL 75 MG TAB PO SCH (10:13)
[2016-12-20] MEDS: CARVEDILOL 12.5 MG TAB PO SCH ×2 (10:13→21:04)
[2016-12-20] MEDS: PRAVASTATIN SOD 20 MG TAB PO SCH (10:13)
[2016-12-20] MEDS: ASPIRIN EC 81 MG TABEC PO SCH (10:14)
[2016-12-20] MEDS: LISINOPRIL 10 MG TAB PO SCH (10:14)
--- NOTE | 2016-12-20 12:32 | EC ---
Study Study Date:12/20/2016 STUDY CONCLUSIONS SUMMARY - Left ventricle: The cavity size was normal. Wall thickness was normal. Systolic function was mildly reduced. The estimated ejection fraction was in the range of 45% to 50%. Wall motion was normal; there were no regional wall motion abnormalities. - Aortic valve: Valve area: 2.15cm^2 (Vmax). - Mitral valve: Mild regurgitation. If LV function is below 40, please consider prescribing an ACEI or ARB or document rationale for non-use. PROCEDURE DATA STUDY STATUS: Elective. Procedure: Transthoracic echocardiography. Image quality was good. Scanning was performed from the parasternal, apical, and subcostal acoustic windows. Study completion: The patient tolerated the procedure well. Transthoracic echocardiography. M-mode, complete 2D, complete spectral Doppler, and color Doppler. Weight: Weight: 154.7lb. Patient status: Inpatient. CARDIAC ANATOMY LEFT VENTRICLE: The cavity size was normal. Wall thickness was normal. Systolic function was mildly reduced. The estimated ejection fraction was in the range of 45% to 50%. Wall motion was normal; there were no regional wall motion abnormalities. AORTIC VALVE: Trileaflet; normal thickness leaflets. Doppler: Transvalvular velocity was within the normal range. There was no stenosis. No regurgitation. Valve area: 2.15cm^2 (Vmax). AORTA: Aortic root: The aortic root was normal in size. MITRAL VALVE: Structurally normal valve. Doppler: Transvalvular velocity was within the normal range. There was no evidence for stenosis. Mild regurgitation. LEFT ATRIUM: The atrium was normal in size. RIGHT VENTRICLE: The cavity size was normal. Wall thickness was normal. PULMONIC VALVE: Doppler: Transvalvular velocity was within the normal range. There was no evidence for stenosis. No regurgitation. TRICUSPID VALVE: Structurally normal valve. Doppler: Transvalvular velocity was within the normal range. No regurgitation. PULMONARY ARTERY: The main pulmonary artery was normal-sized. Systolic pressure was within the normal range. RIGHT ATRIUM: The atrium was normal in size. PERICARDIUM: There was no pericardial effusion. SYSTEMIC VEINS: Inferior vena cava: The vessel was normal in size. Patient weight: 154.7lb _Ejection fraction:_ 65-75% _Fractional shortening:_ 32% up to 5Kg 5-11.5Kg 11.6-22.9Kg 23-45Kg 45-57Kg Aortic Root 7-13 <17 13-22 17-27 17-27 LA diam 6-13 <23 24-38 33-47 37-40 RVID 10-17 7-15 7-15 7-18 8-17 LVIDd 12-22 <32 24-38 33-47 37-40 LVPW 2-4 3-6 5-7 6-8 7-8 IVS 2-4 3-6 5-7 6-8 7-8 BASIC MEASUREMENTS ADULT Normal Left ventricle LV internal dimension, ED, chordal level, *38.9 mm 43-52 PLAX LV internal dimension, ES, chordal level, 31.1 mm 23-38 PLAX Fractional shortening, chordal level, PLAX *20 % >29 LV posterior wall thickness, ED 8.51 mm IVS/LVPW ratio, ED 0.94 <1.3 Ventricular septum Septal thickness, ED 8.04 mm Aortic valve Leaflet separation 18 mm 15-26 BASIC MEASUREMENTS ADULT Normal Aortic valve Leaflet separation 18 mm 15-26 Aorta Root diameter, ED 37 mm 20-37 Left atrium Anterior-posterior dimension, ES 32 mm 19-40 LA/aortic root ratio 0.86 DOPPLER MEASUREMENTS ADULT Normal Main pulmonary artery Pressure, S 16 mm Hg =30 Aortic valve Peak velocity, S 125 cm/s Valve area, Vmax 2.15 cm^2 Mitral valve Maximal regurgitant velocity 255 cm/s Tricuspid valve Regurgitant peak velocity 174 cm/s Peak RV-RA gradient, S 12 mm Hg Maximal regurgitant velocity 174 cm/s Systemic veins Estimated CVP 10 mm Hg Right ventricle RV pressure, S 22 mm Hg <30 Pulmonic valve Peak velocity, S 118 cm/s LEGEND: Mean values are shown as u=mean value. Asterisk (*) martinez values outside specified normal range. Prepared and signed by Giovanni Pedersen [id number]
--- NOTE | 2016-12-20 14:46 | EKG ---
Date Performed: 12/19/2016 Time Performed: 15:55:31 PTAGE: 81 years EKG: SUPRAVENTRICULAR TACHYCARDIA INFERIOR MYOCARDIAL INFARCTION Compared to prior tracing no si gnificant change ABNORMAL ECG INTERPRETATION BASED ON A DEFAULT AGE OF 40 YEARS NO PREVIOUS TRACING DOCTOR: Sherice Workman Interpretating Date/Time 12/20/2016 14:42:51
--- NOTE | 2016-12-20 14:47 | EKG ---
Date Performed: 12/20/2016 Time Performed: 04:06:16 PTAGE: 81 years EKG: Sinus rhythm with PVC(s) with 1st degree A-V block. Compared to prior tracing no significant change Abnormal ECG NO PREVIOUS TRACING DOCTOR: Sherice Workman Interpretating Date/Time 12/20/2016 14:42:59
--- NOTE | 2016-12-20 15:23 | HHI.PR ---
Subjective Remarks S:no new issues more alert communicative. Objective Vital Signs Date Time Temp Pulse Resp B/P Pulse Ox O2 Delivery O2 Flow Rate FiO2 12/20/16 07:59 95.0 12/20/16 07:32 98 21 12/20/16 06:00 80 12/20/16 04:00 86 12/20/16 04:00 97.6 86 18 138/77 97 12/20/16 02:00 77 12/20/16 00:00 98.8 82 16 128/68 95 12/20/16 00:00 85 12/19/16 23:51 96 12/19/16 22:00 97 12/19/16 21:55 101 12/19/16 21:00 98.5 113 17 138/86 95 12/19/16 20:30 109 12/19/16 20:06 110 16 124/85 99 Nasal Cannula 2 12/19/16 20:00 99 Nasal Cannula 2.00 12/19/16 20:00 113 18 97 Nasal Cannula 2 12/19/16 18:00 112 16 137/74 99 Nasal Cannula 2 12/19/16 17:30 114 20 155/90 98 Room Air 12/19/16 17:00 115 18 190/99 97 Nasal Cannula 2 12/19/16 16:15 111 18 189/99 98 Room Air 12/19/16 16:12 112 18 205/113 98 Nasal Cannula 2 12/19/16 16:00 111 24 220/103 98 Nasal Cannula 2 12/19/16 15:56 112 20 196/104 99 Nasal Cannula 2 12/19/16 15:55 94 18 220/99 95 12/19/16 15:55 112 22 99 Nasal Cannula 2 12/19/16 15:52 16 95 Room Air 12/19/16 15:52 95 Nasal Cannula 2 I/O 12/19/16 12/19/16 12/19/16 12/20/16 12/20/16 12/20/16 07:00 15:00 23:00 07:00 15:00 23:00 Intake Total 479 ml 696 ml Output Total 0 ml 660 ml Balance 479 ml 36 ml Intake Oral 400 ml 200 ml IV Total 79 ml 496 ml Output Urine Total 0 ml 660 ml # Bowel Movements 0 0 Result Diagram: 12/20/16 0324 12/20/16 032 Imaging mri brain no acute stroke cta cow neg cta ca left mild stenosis echo report Assessment and Plan Assessment and Plan tia htn pending echo report needs pt eval. plavix 75mg qd bp control ok to go telemetry d/c planning Erendira Wong MD Dec 20, 2016 15:23
[2016-12-20] MEDS: FUROSEMIDE 20 MG/2 ML VIAL IV PUSH SCH (18:07)
[2016-12-20] MEDS: ENOXAPARIN SODIUM 40 MG/0.4 ML SYRINGE SQ SCH (21:04)
[2016-12-21] VITALS (10 sets, daily range): BP systolic 117–126; BP diastolic 56–83; PULSE 71–86; RESP 13–26; TEMP 98.1–99.3; O2SAT 94–96
[2016-12-21] MEDS: CHLORHEXIDINE GLUCONATE 2 % 1 PACK (2 CLOTHS)(taper/protocol) TOPICAL SCH (04:00)
[2016-12-21 05:31] LABS: BICARBONATE 31.9 MEQ/L (21.0-32.0); POTASSIUM 3.8 MEQ/L (3.5-5.1)
[2016-12-21] MEDS: INSULIN ASPART SUPPLEMENTAL SCALE SQ SCH ×4 (06:46→21:00)
[2016-12-21] MEDS: amLODIPine BESYLATE 5 MG TAB PO SCH (08:50)
[2016-12-21] MEDS: CLOPIDOGREL 75 MG TAB PO SCH (08:51)
[2016-12-21] MEDS: CARVEDILOL 12.5 MG TAB PO SCH ×2 (08:51→21:24)
[2016-12-21] MEDS: PRAVASTATIN SOD 20 MG TAB PO SCH (08:51)
[2016-12-21] MEDS: ASPIRIN EC 81 MG TABEC PO SCH (08:52)
[2016-12-21] MEDS: FUROSEMIDE 20 MG/2 ML VIAL IV PUSH SCH (08:52)
[2016-12-21] MEDS: LISINOPRIL 10 MG TAB PO SCH (08:52)
[2016-12-21] MEDS: POTASSIUM BICARBONATE 25 MEQ EFFERVESCENT TAB PO SCH (08:52)
[2016-12-21] MEDS: SODIUM CHLORIDE 0.9% FLUSH 10 ML FLUSH IV FLUSH SCH ×2 (12:43→21:20)
--- NOTE | 2016-12-21 15:09 | HHI.PR ---
Subjective Remarks Resting in bed, alert and awake skin color pink afebrile No acute chest pain or shortness of breath\ Afebrile (Shira Kaur) Objective Objective Results - Vital Signs Date Time Temp Pulse Resp B/P Pulse Ox O2 Delivery O2 Flow Rate FiO2 12/21/16 12:00 98.1 76 14 118/56 95 12/21/16 12:00 76 12/21/16 09:35 95 21 12/21/16 08:00 98.3 79 14 118/56 95 12/21/16 06:00 73 12/21/16 04:00 98.8 71 13 125/64 95 12/21/16 04:00 71 12/21/16 02:00 86 12/21/16 00:00 75 12/21/16 00:00 98.6 75 16 117/65 96 12/20/16 22:00 80 12/20/16 20:00 84 12/20/16 20:00 98.9 84 19 117/61 89 12/20/16 16:00 98.6 I/O 12/20/16 12/20/16 12/20/16 12/21/16 12/21/16 12/21/16 07:00 15:00 23:00 07:00 15:00 23:00 Intake Total 696 ml 960 ml 120 ml Output Total 660 ml 1675 ml 460 ml Balance 36 ml -715 ml -340 ml Intake Oral 200 ml 960 ml 120 ml IV Total 496 ml 0 ml 0 ml Output Urine Total 660 ml 1675 ml 460 ml # Bowel Movements 0 0 0 (Shira Kaur) Result Diagram: 12/20/16 0324 12/21/16 0346 ROS General: Fatigue (generalized), Weakness, Other (10 point ROS done positives noted other systems negative or unremarkable) Pulmonary: Cough (occasional) (Shira Kaur) Physical Exam Physical Exam PHYSICAL EXAMINATION GENERAL: This is a well-developed, thin male who appears to be in no acute distress. He is alert and awake, answering questions appropriately HEAD: Normocephalic without any lesion or mass noted. Facial features appear symmetric. OROPHARYNGEAL: Oropharynx without erythema or edema. NECK: Supple. No nuchal rigidity or lymphadenopathy. Trachea midline without deviation. CARDIAC: Regular rhythm, regular rate, S1 and S2 are heard. Murmur none no gallops or rubs. LUNGS: Mildly diminished to auscultation bilaterally. Occasional wheeze No use of accessory muscles on inspiration or expiration at rest ABDOMEN: Soft, nontender, no organomegaly or masses. Bowel sounds are heard in all four quadrants. No rebound. No guarding. EXTREMITIES: no edema. Pulses equal bilateral. NEUROLOGICAL: Patient mood and affect appropriate. No focal deficit SKIN:Warm and moist, braden Objective Remarks I'm ready to get out of this hospital isn't as possible (Shira Kaur) A/P Assessment and Plan (1) CVA (cerebral vascular accident) (2) HTN (hypertension) (3) Diabetes 1.5, managed as type 2 (4) Hyperkalemia (5) Tachycardia (6) Hyperlipidemia Assessment and Plan Admitted to Dr. Al 81-year-old male with history hypertension, hyperlipidemia and type 2 diabetes. Presented to the emergency room with slurred speech, disoriented, facial asymmetry. Patient did not meet criteria for TPA. 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 CVA vs TIA, possible ischemia with CVA Medical management Neurology consultation, patient has been evaluated by Dr. Wong, appreciate input Vital signs reviewed, patient is afebrile pulse respiratory rate and blood pressure within normal ranges. Cardene drip off. Patient now on by mouth meds Appetite fair/good. Swallowing without any difficulty PT, OT, ST has been ordered Patient now on 2 L O2 as needed Type 2 diabetes, blood glucose uncontrolled Accu-Cheks before meals and at bedtime with insulin therapy as needed Hemoglobin A1c elevated 11.4, noncompliance noted Hypertension, now controlled, monitor, off Cardene drip medical management Sinus tachycardia, resolved, sinus rhythm rate 79 Continuous monitoring, will transition to telemetry Hyperlipidemia Lipid profile has been ordered Resume Zocor 10 mg oral Hypokalemia resolved, K+ now 3.8 , monitor IV Lasix initiated for peripheral edema trace edema lower extremities, changed to by mouth Lasix 40 mg daily. SCDs and Lovenox for DVT prophylaxis Patient medically stable for transfer to medical floor with telemetry Physical therapy eval and treat DC Haque catheter, maintain intake and output Telemetry ordered Discussed With: Nurse (RN), Family, Other (Dr. Al) (Shira Kaur) Assessment and Plan patient seen and examined at bed side PT eval discontinue haque transfer to med surg with tele likely d/c in am discuused with patent / ta bed side discussed with nursing staff dscussed with Shira TAMAYO (Renita Al MD) Shira Kaur Dec 21, 2016 15:09 Renita Al MD Dec 21, 2016 19:54
[2016-12-21] MEDS: ENOXAPARIN SODIUM 40 MG/0.4 ML SYRINGE SQ SCH (21:19)
[2016-12-22] VITALS (7 sets, daily range): BP systolic 98–131; BP diastolic 57–67; PULSE 66–84; RESP 15–18; TEMP 97.3–98.9; O2SAT 95–98
[2016-12-22] MEDS: CHLORHEXIDINE GLUCONATE 2 % 1 PACK (2 CLOTHS)(taper/protocol) TOPICAL SCH (04:00)
[2016-12-22] MEDS: INSULIN ASPART SUPPLEMENTAL SCALE SQ SCH ×3 (06:12→16:00)
[2016-12-22] MEDS ORDERED: PLAV75TA29 PO (08:48)
[2016-12-22] MEDS: SODIUM CHLORIDE 0.9% FLUSH 10 ML FLUSH IV FLUSH SCH (09:00)
[2016-12-22] MEDS ORDERED: FUROSEMIDE 40 MG TAB PO SCH (09:00)
[2016-12-22] MEDS: CARVEDILOL 12.5 MG TAB PO SCH (09:58)
[2016-12-22] MEDS: PRAVASTATIN SOD 20 MG TAB PO SCH (09:58)
[2016-12-22] MEDS: ASPIRIN EC 81 MG TABEC PO SCH (09:58)
[2016-12-22] MEDS: CLOPIDOGREL 75 MG TAB PO SCH (09:58)
[2016-12-22] MEDS: POTASSIUM BICARBONATE 25 MEQ EFFERVESCENT TAB PO SCH (09:58)
[2016-12-22] MEDS: LISINOPRIL 10 MG TAB PO SCH (09:58)
[2016-12-22] MEDS: amLODIPine BESYLATE 5 MG TAB PO SCH (09:58)
--- NOTE | 2016-12-22 13:48 | HHI.PR ---
Subjective Remarks Resting in bed, alert and awake skin color pink afebrile No acute chest pain or shortness of breath\ Objective Objective Results - Vital Signs Date Time Temp Pulse Resp B/P Pulse Ox O2 Delivery O2 Flow Rate FiO2 12/22/16 12:00 97.3 79 18 131/67 97 12/22/16 08:00 98.9 66 18 120/59 98 12/22/16 07:00 79 12/22/16 04:00 98.2 73 15 98/57 95 12/22/16 00:00 98.8 72 15 110/59 95 12/21/16 23:00 79 12/21/16 20:00 99.3 81 15 126/62 95 12/21/16 16:00 98.5 80 26 121/83 94 I/O 12/21/16 12/21/16 12/21/16 12/22/16 12/22/16 12/22/16 07:00 15:00 23:00 07:00 15:00 23:00 Intake Total 120 ml 720 ml 0 ml Output Total 460 ml 1400 ml 0 ml Balance -340 ml -680 ml 0 ml Intake Oral 120 ml 720 ml 0 ml IV Total 0 ml 0 ml 0 ml Output Urine Total 460 ml 1400 ml 0 ml # Bowel Movements 0 0 0 Result Diagram: 12/20/16 0324 12/21/16 0346 ROS General: Fatigue, Weakness, Other (10 point ROS done, debility positive, other systems negative) Pulmonary: SOB (controlled) Physical Exam Physical Exam PHYSICAL EXAMINATION GENERAL: This is a slim male who appears to be in no acute distress. He is alert and awake, HEAD: Normocephalic without any lesion or mass noted. Facial features appear symmetric. OROPHARYNGEAL: Oropharynx without erythema or edema. NECK: Supple. No nuchal rigidity or lymphadenopathy. Trachea midline without deviation. CARDIAC: Regular rhythm, regular rate, S1 and S2 are heard. Murmur soft no gallops or rubs. LUNGS: Diminished to auscultation bilaterally. no wheeze, ABDOMEN: Soft, nontender, no organomegaly or masses. Bowel sounds are heard in all four quadrants. No rebound. No guarding. EXTREMITIES: no edema. Pulses equal bilateral. NEUROLOGICAL: Patient mood and affect appropriate. No focal deficit SKIN:Warm and moist Objective Remarks Im doing better. A/P Assessment and Plan (1) CVA (cerebral vascular accident) (2) HTN (hypertension) (3) Diabetes 1.5, managed as type 2 (4) Hyperkalemia (5) Tachycardia (6) Hyperlipidemia Assessment and Plan Admitted to Dr. Al 81-year-old male with history hypertension, hyperlipidemia and type 2 diabetes. Presented to the emergency room with slurred speech, disoriented, facial asymmetry. Patient did not meet criteria for TPA. 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 TIA, stable, Medical management Neurology consultation, patient has been evaluated by Dr. Wong, appreciate input Vital signs reviewed, patient is afebrile pulse respiratory rate and blood pressure within normal ranges. Appetite fair/good. Swallowing without any difficulty PT, OT, ST has been ordered Patient now on 2 L O2 as needed Type 2 diabetes, Accu-Cheks before meals and at bedtime with insulin therapy as needed Hemoglobin A1c elevated. Hypertension, now controlled, monitor, sinus rhythm rate 79 Continuous monitoring, will transition to telemetry Hyperlipidemia Lipid profile has been ordered Resume Zocor 10 mg oral Hypokalemia resolved, SCDs and Lovenox for DVT prophylaxis Patient medically stable for transfer to medical floor with telemetry Physical therapy eval and treat, feels patient would benefit from acute rehab. Discharge today for further treatment regimin. Discharge Planning acute rehab Discussed With: Nurse (RN), Family, Other (Dr. Al) Shira Kaur Dec 22, 2016 13:48
--- NOTE | 2016-12-22 15:25 | PD.CONS ---
Assessment and Plan Plan Consult received per stroke order set. EMR reviewed. MRI negative for acute stroke. Neurology consult reviewed and indicates TIA. Consult deferred due to no acute stroke. Please reconsult as appropriate. Thank you. Nayeli Licea MD Dec 22, 2016 15:25
--- NOTE | 2016-12-23 17:50 | HHI.DS ---
Discharge Summary Admission Date Dec 19, 2016 at 17:59 Discharge Date: Dec 22, 2016 Admitting Diagnosis CVA Alert (1) Acute respiratory failure with hypoxia Diagnosis: Principal (2) HTN (hypertension), malignant Diagnosis: Principal (3) TIA (transient ischemic attack) Diagnosis: Principal (4) Diabetes 1.5, managed as type 2 Diagnosis: Secondary (5) Hyperkalemia Diagnosis: Principal (6) Tachycardia Diagnosis: Principal (7) Hyperlipidemia Diagnosis: Secondary (8) CHF exacerbation Diagnosis: Principal Procedures Mechanical intubation Brief History This was an 81-year-old male with past medical history diabetes, hypertension and hyperlipidemia. Patient presented as a stroke alert. Patient was last seen normal proximally 5 hours prior to ER arrival. Information is obtained from the medical record and from the patient's . According to the , she had gone to the chiropractor and when she returned home she found the patient on the floor and he appeared to be sleeping. She woke him up, and noted that his speech was not making sense, she also noted some asymmetry to the right face. At that time, she call for [employer] neighbors who carried the patient to the car and brought him to the emergency room. There is no prior history of stroke. Patient does take a baby aspirin. In the emergency room, patient was evaluated in neuro workup was initiated. Case was discussed with Dr. Wong. Patient not a candidate for TPA as he was out of window of time. EKG was completed shows irregular rhythm with rate of 110. Imaging studies were completed as noted below. Last Impressions Neck CTA 12/19/16 1555 Signed Impressions: Service Date/Time: Monday, December 19, 2016 16:00 - CONCLUSION: 1. Atherosclerotic plaquing at the origin of the left internal carotid with mild stenosis. 2. Minimal plaquing at the origin the right internal carotid. No hemodynamically significant lesion is evident. 3. Both vertebral arteries are widely patent. Mayito Slater MD Head CTA 12/19/16 5624 Signed Impressions: Service Date/Time: Monday, December 19, 2016 16:00 - CONCLUSION: 1. No large or central vessel occlusion identified. The intracranial circulation appears widely patent. 2. Mild stenosis at the origin of the left internal carotid. 3. The right carotid circulation is widely patent. 4. The vertebral circulation is widely patent. Mayito Slater MD Head CT 12/19/16 0000 Signed Impressions: Service Date/Time: Monday, December 19, 2016 15:54 - CONCLUSION: 1. 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 2. Atrophic changes in the left cerebellar hemisphere. 3. Nothing acute. Andrea Spann MD Chest X-Ray 12/19/16 0000 Signed Impressions: Service Date/Time: Monday, December 19, 2016 16:53 - CONCLUSION: 1. No acute cardiopulmonary findings. Mayito Slater MD Blood pressure was initially elevated 220/103, heart rate up to 115. Patient appears to be in sinus tachycardia. Patient was noted agitated, Ativan 0.5 mg IV was given. A Cardene drip was also initiated due to high blood pressure. Patient is now examined in the emergency room, he is more calm, he does awake to voice and is oriented to place, able to name hospital. Provide his name, and 's When asked the year, he gives date of . Patient doesn't have recall why he came here. He does endorse that he did feel dizzy today, especially when he got out of bed. According to the yesterday he told her he was not feeling well and complaining of his legs feeling weak and painful. Patient is noted with a right facial droop. He is having some difficulty recalling events, speech is slightly dysarthric. There is no pronator drift noted. He is following simple commands. He is asking for something to drink. Patient is admitted for further evaluation and treatment. CBC/BMP: 12/20/16 0324 12/21/16 0346 Significant Findings Laboratory Tests Test 12/21/16 03:46 Chloride Level 97 MEQ/L (98-107) Blood Urea Nitrogen 19 MG/DL (7-18) Estimat Glomerular Filtration 54 ML/MIN (>89) Rate Random Glucose 165 MG/DL (74-106) Imaging Last Impressions Neck CTA 12/19/16 4739 Signed Impressions: Service Date/Time: Monday, December 19, 2016 16:00 - CONCLUSION: 1. Atherosclerotic plaquing at the origin of the left internal carotid with mild stenosis. 2. Minimal plaquing at the origin the right internal carotid. No hemodynamically significant lesion is evident. 3. Both vertebral arteries are widely patent. Mayito Slater MD Head CTA 12/19/16 1584 Signed Impressions: Service Date/Time: Monday, December 19, 2016 16:00 - CONCLUSION: 1. No large or central vessel occlusion identified. The intracranial circulation appears widely patent. 2. Mild stenosis at the origin of the left internal carotid. 3. The right carotid circulation is widely patent. 4. The vertebral circulation is widely patent. Mayito Slater MD Head CT 12/19/16 0000 Signed Impressions: Service Date/Time: Monday, December 19, 2016 15:54 - CONCLUSION: 1. 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 2. Atrophic changes in the left cerebellar hemisphere. 3. Nothing acute. Andrea Spann MD Chest X-Ray 12/19/16 0000 Signed Impressions: Service Date/Time: Monday, December 19, 2016 16:53 - CONCLUSION: 1. No acute cardiopulmonary findings. Mayito Slater MD Brain MRI 12/19/16 0000 Signed Impressions: Service Date/Time: Monday, December 19, 2016 20:04 - CONCLUSION: 1. No acute intracranial abnormality is seen. 2. Age related atrophy and suspected small vessel ischemic change in the periventricular white matter. 3. 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 4. Maxillary sinus disease. Dheeraj Severino MD PE at Discharge GENERAL: This was a slim male who appears to be in no acute distress. He was alert and awake, HEAD: Normocephalic without any lesion or mass noted. Facial features appear symmetric. OROPHARYNGEAL: Oropharynx without erythema or edema. NECK: Supple. No nuchal rigidity or lymphadenopathy. Trachea midline without deviation. CARDIAC: Regular rhythm, regular rate, S1 and S2 are heard. Murmur soft no gallops or rubs. LUNGS: Diminished to auscultation bilaterally. no wheeze, ABDOMEN: Soft, nontender, no organomegaly or masses. Bowel sounds are heard in all four quadrants. No rebound. No guarding. EXTREMITIES: no edema. Pulses equal bilateral. NEUROLOGICAL: Patient mood and affect appropriate. No focal deficit SKIN:Warm and moist Objective Remarks Im doing better. Hospital Course 81-year-old male with history hypertension, hyperlipidemia and type 2 diabetes. Presented to the emergency room with slurred speech, disoriented, facial asymmetry. Patient did not meet criteria for TPA. 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 Acute CVA, neuro checks, neurology consult done, appreciate Medical management, patient developed acute respiratory failure and required ventilator management. He was complicated with acute pulmonary edema and received IV diuresis Neurology consultation, patient has been evaluated by Dr. Wong, appreciate input Generalized peripheral edema. Acute onset. IV Lasix 20 mg twice a day for now with supplement potassium. Patient has 3-4+ pitting edema in his lower extremities, trunk, scrotum and upper extremities. We'll monitor his active diuresis. Perdue catheter. . Turned every 2 and elevate scrotum. Patient responded to diuresis and therapy and was able to be weaned off the ventilator, and stabilized from his CHF within 48 hours. We'll have nursing perform a bedside swallow, keep NPO for now, gastric tube for meds PT, OT, ST has been ordered Type 2 diabetes, blood glucose uncontrolled Accu-Cheks before meals and at bedtime with insulin therapy as needed Hemoglobin A1c elevated 11.4, noncompliance noted Hypertension, initially placed on Cardene drip for stabilization first 24 hours . After control was reach patient was weaned and DC'd controlled, monitor Complicated with Sinus tachycardia, resolved, by mouth Coreg and Cardene drip continues Continuous monitoring Hyperlipidemia Lipid profile has been ordered Resume Zocor 10 mg oral Hypokalemia mild, dose ordered for today, and daily while patient is on IV diuretics Labs were ordered throughout hospital stay to monitor patient's blood work with special attention to his potassium sodium hemoglobin hematocrit and white count SCDs and Lovenox for DVT prophylaxis Home medications have been reviewed, initiated as indicated On 12/20/16 , patient has been off cardene gtt awake alert and oriented speech appears normal diet advanced on ASA/ PLavix MRI neg ok to transfer to floor with tele, if BP remains stable. Even though patient had transfer orders he remained in the intensive care because there were no other available beds. He was treated as a stepdown patient, monitored for his rhythm, as well as his comorbidities until he was stable to transfer to a lower level of care. 48 hours later it was felt the patient was stable, but still was suffering from debility. Physical therapy evaluated, and stated that he would benefit from a rehabilitation program at the, snf level. Worked with case management and patient was transferred in stable condition Pt Condition on Discharge: Stable Discharge Disposition: Rehab Inpatient Discharge Instructions DIET: Follow Instructions for: Heart Healthy Diet Activities you can perform: Regular-No Restrictions Shira Kaur Dec 23, 2016 17:50
--- NOTE | 2016-12-24 10:39 | PQ ---
Physician Query Response Document PATIENT: ELIECER PALOMINO : 1935 ADMIT DATE: 12/19/2016 5:59 PM DISCH DATE: 12/22/2016 7:00 PM RESPONDING PROVIDER #: sommer QUERY TEXT: Respiratory Failure Underlying Cause Respiratory Failure is documented in the Medical Record discharge summary. Please specify the documen t/dictation/lab values that supports this diagnosis so that it can be coded correctly. Please indicate the legnth of time of mechanical ventillation. If patient did not have acute respiratory failure and mechanical ventillation, please document it as such on query responce. DOCUMENT SPECIFYING ACUTE RESP. FAILURE LEGNTH OF TIME FOR MECHANICAL VENTILLATION PATIENT DID NOT HAVE ACUTE RESP FAILURE/MECH VENTILLATION If you have any additional questions/comments and/or concerns please call CDI/Coding Hotline @ext [phone] The patient's Clinical Indicators include: Dr. AL, your discharge summary documents #1)Acute respiratory failure with hypoxia. Discharge summary also documents mechanical ventillation. i do not find orders for intubation and mechanical ventillation Please review the question below and answer to the best of your ability. THANK YOU Query created by: Branden Guzman on 12/24/2016 7:59 AM RESPONSE TEXT: No respiratory Failure. Will edit discharge summary Electronically signed by: Renita Al MD 12/24/2016 10:34 AM
== END 2016-12-22 19:00 | DRG 69 ==
LOC: NEPC 15:52 → NEDA 17:59 → HIMW 20:25
PROVIDERS: ADMIT Internal Medicine; ATTEND Internal Medicine
PROC: 0T9B70Z Drainage of Bladder with Drainage Device, Via Natural or Artificial Opening (ICD-10-PCS; principal; 2016-12-20)
DX: G45.9 Transient cerebral ischemic attack, unspecified (principal); E11.65 Type 2 diabetes mellitus with hyperglycemia; I50.9 Heart failure, unspecified; E87.5 Hyperkalemia; I10 Essential (primary) hypertension; R00.0 Tachycardia, unspecified; R47.1 Dysarthria and anarthria; E78.00 Pure hypercholesterolemia, unspecified; E78.5 Hyperlipidemia, unspecified; E87.6 Hypokalemia; R29.810 Facial weakness; S50.312A Abrasion of left elbow, initial encounter; S50.311A Abrasion of right elbow, initial encounter; X58.XXXA Exposure to other specified factors, initial encounter; Y93.9 Activity, unspecified; Z79.82 Long term (current) use of aspirin; Z79.84 Long term (current) use of oral hypoglycemic drugs; Y92.9 Unspecified place or not applicable; Y99.9 Unspecified external cause status; Z87.891 Personal history of nicotine dependence; Z79.02 Long term (current) use of antithrombotics/antiplatelets
CPT/HCPCS: 70450; 70496; 70498; 70551; 71010; 80048; 80061; 80307; 81001; 82435; 82550; 82565; 82947; 82948; 83036; 84132; 84295; 84484; 84520; 85025; 85384; 85610; 85730; 86850; 86900; 86901; 87641; 93005; 93306; 96361; 96365; 96374; J0780; J1650; J1815; J1940; J2060; J7030; J7050; P9612; Q9967

== ENCOUNTER 2017-01-21 12:17 | Emergency (ER) | payer MEDICARE, OTHER ==
[~2017-01-21] VITALS: Ht 180.3 cm; Wt 70.0 kg
[~2017-01-21 12:17] MED LIST changes: +AMLO5TAB2 PO; -AMLO5TAB96 PO; +ASPI-110 PO; -ASPI81TA82 PO; -ATOR20TA42 PO; -BUME1TAB PO; -CEPH500C3 PO; -GLIP5 PO; -GLUCTAB PO; +LISI10TA3 PO; +METF500T PO; +PLAV75TA29 PO; -SITA100 PO; -SULF1TAB47 PO; -VASO10TA8 PO; +ZOCO10TA PO
[2017-01-21 12:26] VITALS: BP 116/56; PULSE 73; RESP 14; TEMP 97.7; O2SAT 100
--- NOTE | 2017-01-21 12:57 | PD ---
HPI Chief Complaint: Diabetic Time Seen by Provider: 12:30 Travel History International Travel<30 days: No Contact w/Intl Traveler<30days: No Traveled to known affect area: No History of Present Illness HPI Patient comes in for evaluation after being found to be hypoglycemic at his new primary care doctor's office today in the 60s and was not acting quite right. EMS was called and found patient's blood sugar to be 33. Patient received half an amp of D50 en route and current blood sugar is 183. Patient states that he took his Lantus and NovoLog this morning as normal, ate his breakfast, and went to his doctor's. Patient denies any complaints currently. Denies any chest pain, shortness of breath, headache, nausea, vomiting, numbness or tingling anywhere, abdominal pain, headaches, loss or change in bowel or bladder, or fevers. PFSH Past Medical History Arthritis: No Asthma: No Heart Rhythm Problems: No Cardiovascular Problems: Yes (CHF 1954) Chest Pain: No Congestive Heart Failure: Yes COPD: No Cerebrovascular Accident: Yes Diabetes: Yes Diminished Hearing: No GERD: No Genitourinary: No Hiatal Hernia: No Hypertension: Yes Kidney Stones: No Musculoskeletal: No Neurologic: No Reproductive: No Respiratory: No Migraines: No Renal Failure: No Sleep Apnea: No Ulcer: No Past Surgical History Abdominal Surgery: No Cardiac Surgery: No Ear Surgery: No Endocrine Surgery: No Eye Surgery: No Genitourinary Surgery: No Gynecologic Surgery: No Oral Surgery: No Thoracic Surgery: Yes Other Surgery: Yes (l groin) Social History Alcohol Use: No Tobacco Use: No Substance Use: No Allergies-Medications (Allergen,Severity, Reaction): Coded Allergies: No Known Allergies (Unverified , 05/15/13) Reported Meds & Prescriptions Reported Meds & Active Scripts Active Plavix (Clopidogrel Bisulfate) 75 Mg Tab 75 Mg PO DAILY Embrace Blood Glucose Alpa (Glucose Blood) 1 Alpa Alpa 1 Strip .XX DIRECTED Plavix (Clopidogrel Bisulfate) 75 Mg Tab 75 Mg PO DAILY Reported Aspirin 81 (Aspirin) 81 Mg Tabdr 81 Mg PO DAILY Lisinopril 10 Mg Tab 10 Mg PO DAILY Amlodipine (Amlodipine Besylate) 5 Mg Tab 5 Mg PO DAILY Zocor (Simvastatin) 10 Mg Tab 10 Mg PO DAILY Metformin (Metformin HCl) 500 Mg Tab 500 Mg PO BIDPC With meals Carvedilol 12.5 Mg Tab 12.5 Mg PO BID Review of Systems Except as stated in HPI: all other systems reviewed are Neg Physical Exam Narrative GENERAL: Well-developed, well nourished, in no acute distress, and non-ill appearing. SKIN: Focused skin assessment warm and dry. HEAD: Atraumatic. Normocephalic. EYES: Pupils equal and round. EOMI. No scleral icterus. No injection or drainage. ENT: No nasal bleeding or discharge. Mucous membranes pink and moist. NECK: Trachea midline. Supple. No nuclear rigidity. CARDIOVASCULAR: Regular rate and rhythm. No murmur appreciated. RESPIRATORY: No accessory muscle use. No respiratory distress. Clear to auscultation. Breath sounds equal bilaterally. MUSCULOSKELETAL: No obvious deformities. No clubbing. No cyanosis. No edema. Full range of motion. NEUROLOGICAL: Awake and alert. No obvious cranial nerve deficits. Motor grossly within normal limits. Normal speech. PSYCHIATRIC: Appropriate mood and affect; insight and judgment normal. Data Data Last Documented VS Vital Signs Date Time Temp Pulse Resp B/P Pulse Ox O2 Delivery O2 Flow Rate FiO2 01/21/17 14:31 85 16 97/55 98 Room Air 01/21/17 12:26 97.7 Orders Basic Metabolic Panel (Bmp) (01/21/17 12:52) Complete Blood Count With Diff (01/21/17 12:52) Iv Access Insert/Monitor (01/21/17 12:52) Ecg Monitoring (01/21/17 12:52) Oximetry (01/21/17 12:52) Sodium Chloride 0.9% Flush (Ns Flush) (01/21/17 13:00) Chest, Single Ap (01/21/17 ) Labs Laboratory Tests Test 01/21/17 13:00 White Blood Count 9.7 TH/MM3 Red Blood Count 3.40 MIL/MM3 Hemoglobin 10.7 GM/DL Hematocrit 31.3 % Mean Corpuscular Volume 91.9 FL Mean Corpuscular Hemoglobin 31.3 PG Mean Corpuscular Hemoglobin 34.1 % Concent Red Cell Distribution Width 13.1 % Platelet Count 167 TH/MM3 Mean Platelet Volume 8.0 FL Neutrophils (%) (Auto) 85.4 % Lymphocytes (%) (Auto) 7.8 % Monocytes (%) (Auto) 5.8 % Eosinophils (%) (Auto) 0.8 % Basophils (%) (Auto) 0.2 % Neutrophils # (Auto) 8.3 TH/MM3 Lymphocytes # (Auto) 0.8 TH/MM3 Monocytes # (Auto) 0.6 TH/MM3 Eosinophils # (Auto) 0.1 TH/MM3 Basophils # (Auto) 0.0 TH/MM3 CBC Comment DIFF FINAL Differential Comment Sodium Level 138 MEQ/L Potassium Level 4.1 MEQ/L Chloride Level 103 MEQ/L Carbon Dioxide Level 26.4 MEQ/L Anion Gap 9 MEQ/L Blood Urea Nitrogen 29 MG/DL Creatinine 1.21 MG/DL Estimat Glomerular Filtration 58 ML/MIN Rate Random Glucose 69 MG/DL Calcium Level 8.6 MG/DL MDM Medical Decision Making Medical Screen Exam Complete: Yes Emergency Medical Condition: Yes Interpretation(s) Chest x-ray read by radiologist shows no acute disease. Differential Diagnosis Hypoglycemia, hyperglycemia, anemia, electrolyte abnormality, other Narrative Course The patient has diabetes and was found to have low blood sugars and his primary care office today. The patient is currently asymptomatic. The patient looks great and does not appear ill or dehydrated and is tolerating fluids. The patient is stable, tolerating fluids, hydrated and non ill appearing and may be discharged home with follow up with Primary Care physician and undergo outpatient evaluation for possible adjustment of diabetic medication. The patient and agreed with plan. Patient in no obvious distress upon re-evaluation. All pertinent laboratory/ Radiology result(s) discussed with patient/family. Discussed patient with Dr. Hooks, who reviewed the labs, chest x-ray, and evaluated the patient and is in agreement with plan of care and disposition. Any questions/concerns in reference to patient diagnosis/condition discussed and clarified prior to patient's discharge. Patient's also requesting refill Plavix and diabetic test strips prior to discharge. Reinforced sheer importance of close follow up with patient's primary physician or primary care clinic. Instructed patient to return to ED immediately, if symptoms return/worsen. Pt showed understanding of above instructions. Further instructions and recommendations were detailed in discharge paperwork. Pt ambulated without difficulty out of ED at discharge. Diagnosis Primary Impression: Hypoglycemia Additional Impression: Medication refill Patient Instructions: General Instructions, Hypoglycemia in a Person with Diabetes (ED) Additional Instructions: Follow-up with your primary care physician this week for reevaluation. Return to the emergency department if symptoms get worse. Med/Other Pt SpecificInfo: Prescription(s) given Scripts Clopidogrel (Plavix)75 Mg Tab75 Mg PO DAILY #7 TAB Ref 0 Prov:Claudia Hooks DO 01/21/17 Glucose Blood (Embrace Blood Glucose Alpa)1 Alpa Tes1 Strip .XX DIRECTED #60 Prov:Claudia Hooks DO 01/21/17 Disposition: 01 DISCHARGE HOME Condition: Stable Chintan Snider January 21, 2017 12:57
[2017-01-21 13:00] VITALS: BP 108/70; PULSE 78
[2017-01-21] MEDS ORDERED: SODIUM CHLORIDE 0.9% FLUSH 10 ML FLUSH IV FLUSH PRN (13:00)
[2017-01-21 13:02] VITALS: BP 108/53; PULSE 75; RESP 16; O2SAT 99
--- NOTE | 2017-01-21 13:24 | RADRPT ---
EXAM DATE/TIME: 01/21/2017 13:00 [facility] COMPARISON: CHEST SINGLE AP, December 19, 2016, 16:53. INDICATIONS : Syncope, high insulin levels, short of breath. MEDICAL HISTORY : Diabetes mellitus type II. SURGICAL HISTORY : None. ENCOUNTER: Initial ACUITY: 1 day PAIN SCORE: 0/10 LOCATION: Left chest FINDINGS: A single view of the chest demonstrates the lungs to be symmetrically aerated without evidence of mas s, infiltrate or effusion. Nodule projects over the right lower lobe likely nipple shadow. The cardi omediastinal contours are unremarkable. Osseous structures are intact. CONCLUSION: No acute disease. Kip Win MD on January 21, 2017 at 13:20 Board Certified Radiologist. This report was verified electronically.
[2017-01-21 13:27] LABS: AUTOMATED NEUTROPHIL # 8.3 TH/MM3 (1.8-7.7); BASOPHIL % 0.2 % (0.0-2.0); EOSINOPHIL # 0.1 TH/MM3 (0-0.4); EOSINOPHIL % 0.8 % (0.0-4.0); HEMATOCRIT 31.3 % (39.0-51.0); HEMO FLAGS DIFF FINAL; LYMPH % 7.8 % (9.0-44.0); LYMPHOCYTE # 0.8 TH/MM3 (1.0-4.8); MEAN CELL VOLUME 91.9 FL (80.0-100.0); MEAN CORPUSCULAR HEMOGLOBIN 31.3 PG (27.0-34.0); MEAN CORPUSCULAR HGB CONC 34.1 % (32.0-36.0); MONO % 5.8 % (0.0-8.0); NEUT % 85.4 % (16.0-70.0); PLATELET COUNT 167 TH/MM3 (150-450); RED CELL DISTRIBUTION WIDTH 13.1 % (11.6-17.2); WHITE BLOOD COUNT 9.7 TH/MM3 (4.0-11.0)
[2017-01-21 13:40] LABS: BICARBONATE 26.4 MEQ/L (21.0-32.0); POTASSIUM 4.1 MEQ/L (3.5-5.1)
[2017-01-21 14:31] VITALS: BP 97/55; PULSE 85; RESP 16; O2SAT 98
[2017-01-21] MEDS ORDERED: [UNRECOGNIZED DRUG - OTHER] (14:58)
[2017-01-21] MEDS ORDERED: PLAV75TA29 PO (14:58)
[2017-01-21 15:15] VITALS: BP 126/57; PULSE 85; RESP 18; O2SAT 97
== END 2017-01-21 15:27 | disposition home or self-care (01) ==
LOC: NEPE 12:17
DX: E11.649 Type 2 diabetes mellitus with hypoglycemia without coma (principal); Z79.84 Long term (current) use of oral hypoglycemic drugs; Z76.0 Encounter for issue of repeat prescription
CPT/HCPCS: 71010; 80048; 85025; 99285

== ENCOUNTER 2017-10-19 19:42 | Observation (INO) | payer MEDICARE, OTHER ==
[~2017-10-19] VITALS: Ht 180.3 cm; Wt 78.0 kg
[~2017-10-19 19:42] MED LIST changes: -ASPI-110 PO; +ASPI1TAB57 PO; +[UNRECOGNIZED DRUG - OTHER]
[2017-10-19 19:44] VITALS: BP 173/74; PULSE 56; RESP 16; TEMP 97.7; O2SAT 94
--- NOTE | 2017-10-19 20:22 | RADRPT ---
EXAM DATE/TIME: 10/19/2017 20:17 [facility] COMPARISON: CHEST SINGLE AP, January 21, 2017, 13:00. INDICATIONS : Shortness of breath with some chest pain. MEDICAL HISTORY : Hypertension. Diabetes mellitus type 2. SURGICAL HISTORY : None. ENCOUNTER: Initial ACUITY: 1 day PAIN SCORE: 2/10 LOCATION: Bilateral chest FINDINGS: PA and lateral views of the chest demonstrates small bilateral effusions with increased interstitial markings bilaterally suggestive of pulmonary edema. Heart size within normal limits. There is some li near infiltrates in both lung bases suggestive of atelectasis. These findings are new compared to the prior exam.. CONCLUSION: Findings suggestive of pulmonary edema. Bibasilar infiltrates suggestive of atelectasis. Xavier Edwards MD on October 19, 2017 at 20:19 Board Certified Radiologist. This report was verified electronically.
[2017-10-19 20:55] VITALS: BP 191/76; PULSE 103; RESP 22; O2SAT 95
[2017-10-19 20:58] LABS: AUTOMATED NEUTROPHIL # 4.7 TH/MM3 (1.8-7.7); BASOPHIL % 0.8 % (0.0-2.0); EOSINOPHIL # 0.2 TH/MM3 (0-0.4); EOSINOPHIL % 2.8 % (0.0-4.0); HEMATOCRIT 39.7 % (39.0-51.0); HEMOGLOBIN 13.2 GM/DL (13.0-17.0); LYMPH % 9.9 % (9.0-44.0); LYMPHOCYTE # 0.6 TH/MM3 (1.0-4.8); MEAN CELL VOLUME 94.8 FL (80.0-100.0); MEAN CORPUSCULAR HEMOGLOBIN 31.6 PG (27.0-34.0); MEAN CORPUSCULAR HGB CONC 33.4 % (32.0-36.0); MEAN PLATELET VOLUME 8.6 FL (7.0-11.0); MONO % 7.2 % (0.0-8.0); MONOCYTE # 0.4 TH/MM3 (0-0.9); NEUT % 79.3 % (16.0-70.0); PLATELET COUNT 185 TH/MM3 (150-450); RED BLOOD COUNT 4.18 MIL/MM3 (4.50-5.90); RED CELL DISTRIBUTION WIDTH 14.7 % (11.6-17.2); WHITE BLOOD COUNT 5.9 TH/MM3 (4.0-11.0)
[2017-10-19 21:09] LABS: INTERNATIONAL NORMALIZED RATIO 1.2 RATIO; PROTHROMBIN TIME - PATIENT 12.4 SEC (9.8-11.6)
--- NOTE | 2017-10-19 21:09 | PD ---
HPI Chief Complaint: Respiratory Symptoms Time Seen by Provider: 20:53 Travel History International Travel<30 days: No Contact w/Intl Traveler<30days: No Traveled to known affect area: No History of Present Illness HPI 82-year-old male with history of diabetes, hypertension, hyperlipidemia, CVA, presents for evaluation of dyspnea, bilateral lower extremity edema, chest pressure. He reports over the past month he has had dyspnea, particularly with exertion, associated with a lower chest pain/pressure which is worse with deep inspiration as well as bilateral lower extremity edema. Symptoms are moderate, alleviated somewhat when he is lying down. He reports that he saw his primary care physician and also city maintenance manager Dr. Chun. He believes that he had an outpatient echocardiogram a few weeks ago and he at that time he was started on Lasix once in the mornings. He does not know the dose. He presents today because of symptoms have persisted. He reports associated dry cough. No known history of diagnosed CHF. No history of liver disease. Denies any fevers, chills. No other complaints. Primary care physician is Dr. Alicea. [facility] Past Medical History Hx Anticoagulant Therapy: Yes Arthritis: No Asthma: No Heart Rhythm Problems: No Cardiovascular Problems: Yes (CHF 1954) Chest Pain: No Congestive Heart Failure: Yes COPD: No Cerebrovascular Accident: Yes Diabetes: Yes Patient Takes Glucophage: No Diminished Hearing: No GERD: No Genitourinary: No Hiatal Hernia: No Hypertension: Yes Kidney Stones: No Musculoskeletal: No Neurologic: No Reproductive: No Respiratory: No Immunizations Current: Yes Migraines: No Renal Failure: No Sleep Apnea: No Ulcer: No Past Surgical History Abdominal Surgery: Yes Cardiac Surgery: No Ear Surgery: No Endocrine Surgery: No Eye Surgery: No Genitourinary Surgery: No Gynecologic Surgery: No Oral Surgery: No Thoracic Surgery: Yes Other Surgery: Yes (l groin) Social History Alcohol Use: No Tobacco Use: No Substance Use: No Allergies-Medications (Allergen,Severity, Reaction): Coded Allergies: No Known Allergies (Unverified , 05/15/13) Reported Meds & Prescriptions Reported Meds & Active Scripts Active Plavix (Clopidogrel Bisulfate) 75 Mg Tab 75 Mg PO DAILY Embrace Blood Glucose Alpa (Glucose Blood) 1 Alpa Alpa 1 Strip .XX DIRECTED Plavix (Clopidogrel Bisulfate) 75 Mg Tab 75 Mg PO DAILY Reported Aspirin 81 (Aspirin) 81 Mg Tabdr 81 Mg PO DAILY Lisinopril 10 Mg Tab 10 Mg PO DAILY Amlodipine (Amlodipine Besylate) 5 Mg Tab 5 Mg PO DAILY Zocor (Simvastatin) 10 Mg Tab 10 Mg PO DAILY Metformin (Metformin HCl) 500 Mg Tab 500 Mg PO BIDPC With meals Carvedilol 12.5 Mg Tab 12.5 Mg PO BID Review of Systems Except as stated in HPI: all other systems reviewed are Neg Physical Exam Narrative GENERAL: Well-developed well-nourished male in no acute distress SKIN: Warm and dry. HEAD: Atraumatic. Normocephalic. EYES: Pupils equal and round. No scleral icterus. No injection or drainage. ENT: No nasal bleeding or discharge. Mucous membranes pink and moist. NECK: Trachea midline. No JVD. CARDIOVASCULAR: Regular rate and rhythm. No murmur appreciated. RESPIRATORY: No accessory muscle use. Crackles at the bases. GASTROINTESTINAL: Abdomen soft, non-tender, nondistended. Hepatic and splenic margins not palpable. MUSCULOSKELETAL: No obvious deformities. 2+ lower extremity edema bilaterally. NEUROLOGICAL: Awake and alert. No obvious cranial nerve deficits. Motor grossly within normal limits. Normal speech. PSYCHIATRIC: Appropriate mood and affect; insight and judgment normal. Data Data Last Documented VS Vital Signs Date Time Temp Pulse Resp B/P (MAP) Pulse Ox O2 Delivery O2 Flow Rate FiO2 10/19/17 20:55 103 22 191/76 (114) 95 Room Air 10/19/17 19:44 97.7 Orders Orders Electrocardiogram (10/19/17 20:09) Basic Metabolic Panel (Bmp) (10/19/17 20:09) B-Type Natriuretic Peptide (10/19/17 20:09) Ckmb (Isoenzyme) Profile (10/19/17 20:09) Complete Blood Count With Diff (10/19/17 20:09) Magnesium (Mg) (10/19/17 20:09) Prothrombin Time / Inr (Pt) (10/19/17 20:09) Act Partial Throm Time (Ptt) (10/19/17 20:09) Troponin I (10/19/17 20:09) Chest, Pa & Lat (10/19/17 20:09) Us Leg Venous Doppler Bilat (10/19/17 21:03) Furosemide Inj (Lasix Inj) (10/19/17 21:30) CKMB (10/19/17 20:46) CKMB% (10/19/17 20:46) Hepatic Functional Panel (10/19/17 20:46) Aspirin Chew (Aspirin Chew) (10/19/17 22:30) Admit Order (Ed Use Only) (10/19/17 22:28) Labs Laboratory Tests Test 10/19/17 20:46 White Blood Count 5.9 TH/MM3 Red Blood Count 4.18 MIL/MM3 Hemoglobin 13.2 GM/DL Hematocrit 39.7 % Mean Corpuscular Volume 94.8 FL Mean Corpuscular Hemoglobin 31.6 PG Mean Corpuscular Hemoglobin Concent 33.4 % Red Cell Distribution Width 14.7 % Platelet Count 185 TH/MM3 Mean Platelet Volume 8.6 FL Neutrophils (%) (Auto) 79.3 % Lymphocytes (%) (Auto) 9.9 % Monocytes (%) (Auto) 7.2 % Eosinophils (%) (Auto) 2.8 % Basophils (%) (Auto) 0.8 % Neutrophils # (Auto) 4.7 TH/MM3 Lymphocytes # (Auto) 0.6 TH/MM3 Monocytes # (Auto) 0.4 TH/MM3 Eosinophils # (Auto) 0.2 TH/MM3 Basophils # (Auto) 0.0 TH/MM3 CBC Comment DIFF FINAL Differential Comment Prothrombin Time 12.4 SEC Prothromb Time International Ratio 1.2 RATIO Activated Partial Thromboplast Time 27.1 SEC Blood Urea Nitrogen 24 MG/DL Creatinine 1.60 MG/DL Random Glucose 132 MG/DL Total Protein 8.0 GM/DL Albumin 3.8 GM/DL Calcium Level 9.2 MG/DL Magnesium Level 1.8 MG/DL Alkaline Phosphatase 108 U/L Aspartate Amino Transf (AST/SGOT) 22 U/L Alanine Aminotransferase (ALT/SGPT) 35 U/L Total Bilirubin 0.4 MG/DL Direct Bilirubin 0.2 MG/DL Sodium Level 139 MEQ/L Potassium Level 4.4 MEQ/L Chloride Level 106 MEQ/L Carbon Dioxide Level 27.1 MEQ/L Anion Gap 6 MEQ/L Estimat Glomerular Filtration Rate 42 ML/MIN Indirect Bilirubin 0.2 MG/DL Total Creatine Kinase 103 U/L Creatine Kinase MB 2.8 NG/ML Troponin I LESS THAN 0.02 NG/ML B-Type Natriuretic Peptide 158 PG/ML MDM Medical Decision Making Medical Screen Exam Complete: Yes Emergency Medical Condition: Yes Medical Record Reviewed: Yes Differential Diagnosis CHF, fluid overload, pulmonary edema, pulmonary embolism, acute coronary syndrome Narrative Course The patient will be placed on ECG monitoring and pulse oximetry. A 12-lead EKG will be obtained. Lab work, chest x-ray were obtained in triage. Chest x-ray reveals findings suggestive of pulmonary edema with bibasilar infiltrate suggestive of atelectasis. CBC is unremarkable. CMP reveals a GFR of 42 otherwise unremarkable. BNP is slightly elevated at 158. Ultrasound of the lower extremities reveals no evidence of DVT, right Olvera cyst measuring 3.4 cm. The patient took 1 mg of aspirin this morning, therefore additional 243 mg aspirin has been administered. The patient was given 40 mg of IV Lasix. He will be admitted for observation for chest pain, pulmonary edema, lower extremity edema. Diagnosis Primary Impression: Chest pain Additional Impressions: Pulmonary edema Lower extremity edema Admitting Information Admitting Physician Requests: Observation Gilberto Henry Oct 19, 2017 21:08
[2017-10-19 21:21] LABS: BICARBONATE 27.1 MEQ/L (21.0-32.0); BLOOD UREA NITROGEN 24 MG/DL (7-18); CALCIUM 9.2 MG/DL (8.5-10.1); CHLORIDE 106 MEQ/L (98-107); GLOMERULAR FILTRATION RATE 42 ML/MIN (>89); GLUCOSE,RANDOM 132 MG/DL (74-106); MAGNESIUM 1.8 MG/DL (1.5-2.5); SODIUM (NA) 139 MEQ/L (136-145)
[2017-10-19 21:25] LABS: TROPONIN I LESS THAN 0.02 NG/ML (0.02-0.05)
[2017-10-19] MEDS ORDERED: FUROSEMIDE 40 MG/4 ML VIAL IV PUSH ONE (21:30)
--- NOTE | 2017-10-19 21:31 | PD ---
Physical Exam Narrative General: The patient is a well-developed well-nourished male in no acute distress. Head and Neck exam: Head is normocephalic atraumatic. Eyes: EOMI, pupils are equal round and reactive to light. Nose: Midline septum with pink mucous membranes Mouth: Dentition unremarkable. Moist mucus membranes. Posterior oropharynx is not erythematous. No tonsillar hypertrophy. Uvula midline. Airway patent. Neck: No palpable lymphadenopathy. No nuchal rigidity. No thyromegaly. Cardiovascular: Regular rate and rhythm with 1/6 systolic murmur, no gallops or rubs. Lungs: Crackles are audible in bilateral lung bases. The patient has no wheezes or rhonchi audible. No accessory muscle use. No tripoding. No paroxysmal abdominal breathing Abdomen: Soft, without tenderness to palpation in all 4 quadrants of the abdomen. No guarding, rebound, or rigidity. Normal bowel sounds are audible. No tenderness on palpation of McBurney's point. Extremities: No clubbing or cyanosis. The patient has 1+ edema bilateral lower extremities. The patient is less than 3 second capillary refill. Back: No costovertebral angle tenderness to palpation. Neurologic Exam: Grossly nonfocal. The patient is not tremulous. No asterixis. Skin Exam: No rash noted. Intact skin that is warm and dry. Data Data Last Documented VS Vital Signs Date Time Temp Pulse Resp B/P (MAP) Pulse Ox O2 Delivery O2 Flow Rate FiO2 10/19/17 20:55 103 22 191/76 (114) 95 Room Air 10/19/17 19:44 97.7 Orders Orders Electrocardiogram (10/19/17 20:09) Basic Metabolic Panel (Bmp) (10/19/17 20:09) B-Type Natriuretic Peptide (10/19/17 20:09) Ckmb (Isoenzyme) Profile (10/19/17 20:09) Complete Blood Count With Diff (10/19/17 20:09) Magnesium (Mg) (10/19/17 20:09) Prothrombin Time / Inr (Pt) (10/19/17 20:09) Act Partial Throm Time (Ptt) (10/19/17 20:09) Troponin I (10/19/17 20:09) Chest, Pa & Lat (10/19/17 20:09) Us Leg Venous Doppler Bilat (10/19/17 21:03) Furosemide Inj (Lasix Inj) (10/19/17 21:30) CKMB (10/19/17 20:46) CKMB% (10/19/17 20:46) Hepatic Functional Panel (10/19/17 20:46) Labs Laboratory Tests Test 10/19/17 20:46 White Blood Count 5.9 TH/MM3 Red Blood Count 4.18 MIL/MM3 Hemoglobin 13.2 GM/DL Hematocrit 39.7 % Mean Corpuscular Volume 94.8 FL Mean Corpuscular Hemoglobin 31.6 PG Mean Corpuscular Hemoglobin Concent 33.4 % Red Cell Distribution Width 14.7 % Platelet Count 185 TH/MM3 Mean Platelet Volume 8.6 FL Neutrophils (%) (Auto) 79.3 % Lymphocytes (%) (Auto) 9.9 % Monocytes (%) (Auto) 7.2 % Eosinophils (%) (Auto) 2.8 % Basophils (%) (Auto) 0.8 % Neutrophils # (Auto) 4.7 TH/MM3 Lymphocytes # (Auto) 0.6 TH/MM3 Monocytes # (Auto) 0.4 TH/MM3 Eosinophils # (Auto) 0.2 TH/MM3 Basophils # (Auto) 0.0 TH/MM3 CBC Comment DIFF FINAL Differential Comment Prothrombin Time 12.4 SEC Prothromb Time International Ratio 1.2 RATIO Activated Partial Thromboplast Time 27.1 SEC Blood Urea Nitrogen 24 MG/DL Creatinine 1.60 MG/DL Random Glucose 132 MG/DL Total Protein 8.0 GM/DL Albumin 3.8 GM/DL Calcium Level 9.2 MG/DL Magnesium Level 1.8 MG/DL Alkaline Phosphatase 108 U/L Aspartate Amino Transf (AST/SGOT) 22 U/L Alanine Aminotransferase (ALT/SGPT) 35 U/L Total Bilirubin 0.4 MG/DL Direct Bilirubin 0.2 MG/DL Sodium Level 139 MEQ/L Potassium Level 4.4 MEQ/L Chloride Level 106 MEQ/L Carbon Dioxide Level 27.1 MEQ/L Anion Gap 6 MEQ/L Estimat Glomerular Filtration Rate 42 ML/MIN Indirect Bilirubin 0.2 MG/DL Total Creatine Kinase 103 U/L Creatine Kinase MB 2.8 NG/ML Troponin I LESS THAN 0.02 NG/ML B-Type Natriuretic Peptide 158 PG/ML [facility] Medical Record Reviewed: Yes Supervised Visit with JOCY: Yes Narrative Course I, Dr. Lopez, have reviewed the advance practice practitioner's documentation and am in agreement, met with the patient face to face, made the diagnosis, and the medical decision making was done by me. The patient was initially evaluated by Gilberto. Please see their complete history and physical. *My assessment and Findings: The patient presents with chest pain and shortness of breath with exertion associated with fatigue that has been ongoing and intermittent for the last month. The patient was recently referred to a gear inspector, Dr. Chun, who he saw 2 weeks ago. He is unsure whether a stress test was done. He was told that he had a leaky heart valve. He reports that he has had congestive heart failure 10 years ago. The patient reports having worsening lower extremity edema. During the course of the patient's emergency department visit, the patient's history, examination, and differential diagnosis were reviewed with the patient. The patient was placed on a night monitor with oximetry and frequent blood pressure monitoring. The patient had IV access obtained and blood work sent for analysis. The patient was initially provided Lasix 40 mg IV. The patient's laboratory studies were reviewed and remarkable for a white count of 5.9, hemoglobin 13.2, platelets 185 with 79.3 neutrophil. CMP is remarkable for BUN 24, creatinine 1.60, glucose 132, initial set of cardiac enzymes within normal limits, BNP is 158, PT 12.5, PTT 27.1 Radiology studies were reviewed and remarkable for a chest x-ray that shows findings of pulmonary edema. An ultrasound of bilateral lower extremities reveals no evidence of DVT. The patient's results were discussed with the patient, including the plan of care. I explained that further testing and/ or monitoring is indicated based on the patient's history, examination, and/ or laboratory findings. Therefore, I recommended admission for additional evaluation. The patient expressed understanding and was agreeable with this plan. The patient was admitted to the hospital in stable condition and sent to a bed under the care of the [facility]. Diagnosis Primary Impression: CHF exacerbation Qualified Codes: I50.9 - Heart failure, unspecified Evy Lopez MD Oct 19, 2017 21:31
--- NOTE | 2017-10-19 21:52 | RADRPT ---
EXAM DATE/TIME: 10/19/2017 21:22 [place] COMPARISON: No previous studies available for comparison. INDICATIONS : Bilateral leg swelling. MEDICAL HISTORY : Stroke. Congestive heart failure. Hypercholesterolemia. Dizziness. Syncope. Numbness. Anticoagulant t herapy. Hypertension. Diabetes. SURGICAL HISTORY : Chest surgery. Circumcision. Left groin surgery. ENCOUNTER: Initial ACUITY: >1 year PAIN SCORE: 4/10 LOCATION: Bilateral legs. TECHNIQUE: Venous ultrasound of the left and right leg was performed from the inguinal ligament to the proximal calf. Real-time, color Doppler and spectral tracing, compression and augmentation techniques were us ed. FINDINGS: RIGHT LEG: There is normal compressibility of the deep venous system from the inguinal region to the proximal ca lf. No echogenic clot is seen in the lumen of the common femoral, femoral, popliteal, and posterior tibial veins. There is a normal response of the venous system to proximal and distal augmentation an d respiration. There is a Olvera's cyst measuring 3.4 x 2.4 cm. LEFT LEG: There is normal compressibility of the deep venous system from the inguinal region to the proximal ca lf. No echogenic clot is seen in the lumen of the common femoral, femoral, popliteal, and posterior tibial veins. There is a normal response of the venous system to proximal and distal augmentation an d respiration. CONCLUSION: 1. No evidence of DVT. 2. Right Olvera's cyst measuring 3.4 cm Xavier Edwards MD on October 19, 2017 at 21:49 Board Certified Radiologist. This report was verified electronically.
[2017-10-19 22:11] LABS: ALBUMIN 3.8 GM/DL (3.4-5.0); ALT (GPT) 35 U/L (12-78); AST (GOT) 22 U/L (15-37); DIRECT BILIRUBIN ADULT 0.2 MG/DL (0.0-0.2)
[2017-10-19 22:13] LABS: ALKALINE PHOSPHATASE 108 U/L (45-117); INDIRECT BILIRUBIN 0.2 MG/DL (0.0-0.8); TOTAL BILIRUBIN ADULT 0.4 MG/DL (0.2-1.0)
[2017-10-19] MEDS ORDERED: ASPIRIN 81 MG CHEW TAB CHEW ONE (22:30)
[2017-10-19 23:11] VITALS: BP 151/70; PULSE 45; O2SAT 96
[2017-10-19] MEDS ORDERED: DEXTROSE 50% IN WATER 50 ML VIAL(D50) IV PUSH PRN (23:30)
[2017-10-19] MEDS ORDERED: SODIUM CHLORIDE 0.9% FLUSH 10 ML FLUSH IV FLUSH PRN (23:30)
[2017-10-19] MEDS ORDERED: GLUCAGON 1 MG/ML VIAL OTHER PRN (23:30)
[2017-10-20] VITALS (14 sets, daily range): BP systolic 118–160; BP diastolic 56–73; PULSE 42–73; RESP 18–20; TEMP 97.6–98.2; O2SAT 88–97
[2017-10-20] MEDS ORDERED: RESP: ALBUTEROL 2.5 MG/IPRATROPIUM 0.5 MG NEB (PRN) NEB (00:45)
--- NOTE | 2017-10-20 00:45 | HHI.HP ---
HPI Service [facility] Primary Care Physician Simba Alicea DO Admission Diagnosis chest pain, pulmonary edema, lower extremity edema Diagnoses: Travel History International Travel<30 Days: No Contact w/Intl Traveler <30 Da: No Traveled to Known Affected Are: No History of Present Illness 82-year-old male with past medical history significant for hypertension, hyperlipidemia, diabetes mellitus, newly diagnosed CHF and history of TIA presents the emergency department complaining of chest pain and shortness of breath. The patient reports he has had shortness of breath on and off for the past month. He reports that he had an upper respiratory infection of some kind and thought that he just had the flu. He came into the emergency department tonight because he was afraid that he had pneumonia. He endorses dyspnea on exertion. He was recently seen by a acupressure therapist for the first time, Dr. Chun, who started him on Lasix. An echo was also done at that time however the patient does not know the results other than "I have a leaky valve." The patient complains of 2+ lower extremity edema. He denies any fever/chills. Denies abdominal pain. Review of Systems Except as stated in HPI: all other systems reviewed are Neg Past Family Social History Past Medical History Hypertension Hyperlipidemia Diabetes mellitus Family diagnosed CHF History of TIA Past Surgical History Benign inguinal mass removal Allergies: Coded Allergies: No Known Allergies (Unverified , 05/15/13) Family History Both parents with diabetes mellitus Social History Remote history of smoking. Denies alcohol, illicit drugs. Physical Exam Vital Signs Vital Signs Date Time Temp Pulse Resp B/P (MAP) Pulse Ox O2 Delivery O2 Flow Rate FiO2 10/19/17 23:11 45 151/70 (97) 96 Nasal Cannula 2.00 10/19/17 20:55 103 22 191/76 (114) 95 Room Air 10/19/17 19:44 97.7 56 16 173/74 (107) 94 Room Air Physical Exam GENERAL: male sitting up in bed SKIN: No rashes, ecchymoses or lesions. Cool and dry. HEAD: Atraumatic. Normocephalic. No temporal or scalp tenderness. EYES: Pupils equal round and reactive. Extraocular motions intact. No scleral icterus. No injection or drainage. ENT: Nose without bleeding, purulent drainage or septal hematoma. Throat without erythema, tonsillar hypertrophy or exudate. Uvula midline. Airway patent. NECK: Trachea midline. No JVD or lymphadenopathy. Supple, nontender, no meningeal signs. CARDIOVASCULAR: Regular rate and rhythm without murmurs, gallops, or rubs. RESPIRATORY: Bilateral crackles with expiratory wheezes. GASTROINTESTINAL: Abdomen soft, non-tender, nondistended. No hepato-splenomegaly , or palpable masses. No guarding. MUSCULOSKELETAL: Extremities without clubbing, cyanosis, or edema. No joint tenderness, effusion, or edema noted. No calf tenderness. NEUROLOGICAL: Awake and alert. Cranial nerves II through XII intact. Motor and sensory grossly within normal limits. Normal speech. Laboratory Laboratory Tests Test 10/19/17 20:46 White Blood Count 5.9 Red Blood Count 4.18 Hemoglobin 13.2 Hematocrit 39.7 Mean Corpuscular Volume 94.8 Mean Corpuscular Hemoglobin 31.6 Mean Corpuscular Hemoglobin Concent 33.4 Red Cell Distribution Width 14.7 Platelet Count 185 Mean Platelet Volume 8.6 Neutrophils (%) (Auto) 79.3 Lymphocytes (%) (Auto) 9.9 Monocytes (%) (Auto) 7.2 Eosinophils (%) (Auto) 2.8 Basophils (%) (Auto) 0.8 Neutrophils # (Auto) 4.7 Lymphocytes # (Auto) 0.6 Monocytes # (Auto) 0.4 Eosinophils # (Auto) 0.2 Basophils # (Auto) 0.0 CBC Comment DIFF FINAL Differential Comment Prothrombin Time 12.4 Prothromb Time International Ratio 1.2 Activated Partial Thromboplast Time 27.1 Blood Urea Nitrogen 24 Creatinine 1.60 Random Glucose 132 Total Protein 8.0 Albumin 3.8 Calcium Level 9.2 Magnesium Level 1.8 Alkaline Phosphatase 108 Aspartate Amino Transf (AST/SGOT) 22 Alanine Aminotransferase (ALT/SGPT) 35 Total Bilirubin 0.4 Direct Bilirubin 0.2 Sodium Level 139 Potassium Level 4.4 Chloride Level 106 Carbon Dioxide Level 27.1 Anion Gap 6 Estimat Glomerular Filtration Rate 42 Indirect Bilirubin 0.2 Total Creatine Kinase 103 Creatine Kinase MB 2.8 Troponin I LESS THAN 0.02 B-Type Natriuretic Peptide 158 Result Diagram: 10/19/17204510/19/172045 Caprini VTE Risk Assessment Caprini VTE Risk Assessment: Mod/High Risk (score >= 2) Caprini Risk Assessment Model Point Value = 1 Point Value = 2 Point Value = 3 Point Value = 5 Age 41-60 Minor surgery BMI > 25 kg/m2 Swollen legs Varicose veins or History of unexplained or recurrent spontaneous Oral contraceptives or hormone replacement Sepsis (< 1 month) Serious lung disease, including pneumonia (< 1 month) Abnormal pulmonary function Acute myocardial infarction Congestive heart failure (< 1 month) History of inflammatory bowel disease Medical patient at bed rest Age 61-74 Arthroscopic surgery Major open surgery (> 45 min) Laparoscopic surgery (> 45 min) Malignancy Confined to bed (> 72 hours) Immobilizing plaster cast Central venous access Age >= 75 History of VTE Family history of VTE Factor V Leiden Prothrombin [id number] Lupus anticoagulant Anticardiolipin antibodies Elevated serum homocysteine Heparin-induced thrombocytopenia Other congenital or acquired thrombophilia Stroke (< 1 month) Elective arthroplasty Hip, pelvis, or leg fracture Acute spinal cord injury (< 1 month) Prophylaxis Regimen Total Risk Factor Score Risk Level Prophylaxis Regimen 0-1 Low Early ambulation 2 Moderate Order ONE of the following: *Sequential Compression Device (SCD) *Heparin 5000 units SQ BID 3-4 Higher Order ONE of the following medications: *Heparin 5000 units SQ TID *Enoxaparin/Lovenox 40 mg SQ daily (WT < 150 kg, CrCl > 30 mL/min) *Enoxaparin/Lovenox 30 mg SQ daily (WT < 150 kg, CrCl > 10-29 mL/min) *Enoxaparin/Lovenox 30 mg SQ BID (WT < 150 kg, CrCl > 30 mL/min) AND/OR *Sequential Compression Device (SCD) 5 or more Highest Order ONE of the following medications: *Heparin 5000 units SQ TID (Preferred with Epidurals) *Enoxaparin/Lovenox 40 mg SQ daily (WT < 150 kg, CrCl > 30 mL/min) *Enoxaparin/Lovenox 30 mg SQ daily (WT < 150 kg, CrCl > 10-29 mL/min) *Enoxaparin/Lovenox 30 mg SQ BID (WT < 150 kg, CrCl > 30 mL/min) AND *Sequential Compression Device (SCD) Assessment and Plan Assessment and Plan Assessment/plan: 1. CHF exacerbation Chest x-ray significant for ovarian edema, personally reviewed BNP only mildly elevated at 158 IV Lasix Supplemental oxygen as needed 2. Chest pain Initial troponin negative EKG negative for ST segment elevations or depressions, personally reviewed ACS rule out pending; serial troponin/EKGs 3. Hypertension/hyperlipidemia Continue home medications 4. Diabetes mellitus Holding home metformin SSI Monitor blood glucose 5. History of TIA Continue home Plavix FEN Heart healthy diet Electrolytes: monitor and replete prn Delia Tai MD Oct 20, 2017 00:45
[2017-10-20] MEDS: ENOXAPARIN SODIUM 40 MG/0.4 ML SYRINGE SQ SCH (01:57)
[2017-10-20 04:08] LABS: AUTOMATED NEUTROPHIL # 4.3 TH/MM3 (1.8-7.7); BASOPHIL % 0.5 % (0.0-2.0); EOSINOPHIL # 0.1 TH/MM3 (0-0.4); EOSINOPHIL % 2.5 % (0.0-4.0); HEMATOCRIT 36.5 % (39.0-51.0); HEMOGLOBIN 12.3 GM/DL (13.0-17.0); LYMPH % 13.1 % (9.0-44.0); LYMPHOCYTE # 0.7 TH/MM3 (1.0-4.8); MEAN CELL VOLUME 95.3 FL (80.0-100.0); MEAN CORPUSCULAR HGB CONC 33.6 % (32.0-36.0); MONO % 8.1 % (0.0-8.0); MONOCYTE # 0.5 TH/MM3 (0-0.9); NEUT % 75.8 % (16.0-70.0); PLATELET COUNT 168 TH/MM3 (150-450); RED BLOOD COUNT 3.83 MIL/MM3 (4.50-5.90); RED CELL DISTRIBUTION WIDTH 14.9 % (11.6-17.2); WHITE BLOOD COUNT 5.7 TH/MM3 (4.0-11.0)
[2017-10-20 04:33] LABS: BICARBONATE 26.6 MEQ/L (21.0-32.0); CALCIUM 8.8 MG/DL (8.5-10.1); CREATININE 1.51 MG/DL (0.60-1.30)
[2017-10-20 04:38] LABS: TROPONIN I LESS THAN 0.02 NG/ML (0.02-0.05)
[2017-10-20] MEDS ORDERED: CARVEDILOL 12.5 MG TAB PO SCH (09:00)
[2017-10-20] MEDS ORDERED: CLOPIDOGREL 75 MG TAB PO SCH (09:00)
[2017-10-20] MEDS: FUROSEMIDE 40 MG/4 ML VIAL IVP SCH ×2 (09:03→17:52)
[2017-10-20] MEDS: PRAVASTATIN SOD 20 MG TAB PO SCH (09:03)
[2017-10-20] MEDS: amLODIPine BESYLATE 5 MG TAB PO SCH (09:03)
[2017-10-20] MEDS: ASPIRIN EC 81 MG TABEC PO SCH (09:04)
[2017-10-20] MEDS: SODIUM CHLORIDE 0.9% FLUSH 10 ML FLUSH IV FLUSH SCH ×2 (09:04→22:02)
--- NOTE | 2017-10-20 09:06 | HHI.PR ---
Subjective Remarks Follow up for CHF exacerbation. The patient reports feeling slightly better today. He has continued bilateral lower extremity edema however improved compared to yesterday. Shortness of breath also improving, however upon sitting up in bed, patient became extremely dyspneic for a few minutes, relieved by rest. Denies any orthopnea or paroxysmal nocturnal dyspnea. He denies ever having any chest pain. The patient believes he last had an echo done approximately [address] Chun's office. He was told he has a leaky valve and CHF but does not recall an ejection fraction. He believes he was started on lasix by his PCP 1 week ago. He does not believe he's ever had a cardiac catheterization. The patient admits to dietary indiscretion with adding salt to meals, and eating a ton of salted popcorn "like it's going out of style. " The patient also complains of dizziness upon sitting up or standing. He states the dizziness has been going on for awhile and he talked to Dr. Chun about this. He states he was told that he needs to perform slow transitions from lying to sitting to standing. He has no other medical complaints at this time. Objective Vitals Vital Signs Date Time Temp Pulse Resp B/P (MAP) Pulse Ox O2 Delivery O2 Flow Rate FiO2 10/20/17 08:42 98.0 54 18 160/73 (102) 93 10/20/17 06:58 21 10/20/17 04:02 42 10/20/17 03:58 97.9 48 18 140/73 (95) 94 10/20/17 02:25 94 Nasal Cannula 2.00 10/20/17 02:20 49 20 88 10/20/17 01:18 47 10/20/17 01:00 97.9 44 18 146/67 (93) 92 10/20/17 00:54 10/19/17 23:11 45 151/70 (97) 96 Nasal Cannula 2.00 10/19/17 20:55 103 22 191/76 (114) 95 Room Air 10/19/17 19:44 97.7 56 16 173/74 (107) 94 Room Air Result Diagram: 10/20/17 0331 10/20/17 0331 Imaging Last Impressions Lower Extremity Ultrasound 10/19/172102 Signed Impressions: Service Date/Time: Thursday, October 19, 2017 21:22 - CONCLUSION: 1. No evidence of DVT. 2. Right Olvera's cyst measuring 3.4 cm Xavier Edwards MD Chest X-Ray 10/19/172008 Signed Impressions: Service Date/Time: Thursday, October 19, 2017 20:17 - CONCLUSION: Findings suggestive of pulmonary edema. Bibasilar infiltrates suggestive of atelectasis. Xavier Edwards MD Objective Remarks GENERAL: Well-nourished, well-developed pleasant elderly male patient in NAD. Hard of hearing. SKIN: Warm and dry. No rash. HEENT: Normocephalic. Atraumatic. Pupils equal and round. Mucous membranes pink and moist. NECK: Supple. Trachea midline. CARDIOVASCULAR: Regular rate and rhythm. S1, S2 noted. No obvious murmur. RESPIRATORY: No accessory muscle use. Breath sounds diminished at bilateral bases with faint crackles. Breath sounds equal bilaterally. GASTROINTESTINAL: Abdomen soft, non-tender, nondistended. Normoactive bowel sounds x4. MUSCULOSKELETAL: No obvious deformities. 2+ bilateral lower extremity edema. NEUROLOGICAL: Awake and alert. No obvious cranial nerve deficits. Motor grossly within normal limits. Normal speech. PSYCHIATRIC: Appropriate mood and affect; insight and judgment normal. Medications and IVs Current Medications Medications (Trade) Dose Ordered Sig/Thea Route Start Time Stop Time Status Last Admin (NS Flush) 2 ml BID IV FLUSH 10/20/17 09:00 (NS Flush) 2 ml UNSCH PRN IV FLUSH 10/19/17 23:30 (Lasix Inj) 40 mg BID@ IVP 10/20/17 09:00 (Lovenox Inj) 40 mg Q24H SQ 10/20/17 00:00 10/20/17 01:57 (D50w (Vial) Inj) 50 ml UNSCH PRN IV PUSH 10/19/17 23:30 (Glucagon Inj) 1 mg UNSCH PRN OTHER 10/19/17 23:30 (NovoLOG SUPPLEMENTAL SCALE) 1 ACHS SLIDING SCALE SQ 10/20/17 08:00 (Norvasc) 5 mg DAILY PO 10/20/17 09:00 (Ecotrin Ec) 81 mg DAILY PO 10/20/17 09:00 (Coreg) 12.5 mg BID PO 10/20/17 09:00 (Plavix) 75 mg DAILY PO 10/20/17 09:00 (Prinivil) 10 mg DAILY PO 10/20/17 09:00 (Pravachol) 20 mg DAILY PO 10/20/17 09:00 (Duoneb Neb) 1 ampule Q4HR NEB PRN NEB 10/20/17 00:45 (Pneumovax-23 Inj) 25 mcg ONCE ONCE IM 10/21/17 10:00 10/21/17 10:01 A/P Assessment and Plan 82-year-old male with past medical history significant for hypertension, hyperlipidemia, diabetes mellitus, newly diagnosed CHF and history of TIA presents the emergency department complaining of shortness of breath and chest tightness. Acute Respiratory Failure: O2 sat 88% on room air. Suspect secondary to CHF exacerbation. Patient does not wear oxygen at home -see treatment for CHF exacerbation below -incentive spirometry -O2 as needed to keep O2 sat >92% -Will need home O2 walk test prior to discharge Acute CHF Exacerbation: unknown if systolic vs diastolic, no previous echo on file. CXR images reviewed, shows pulmonary edema and bibasilar infiltrates suggestive of atelectasis. BNP mildly elevated at 158, however patient also with CKD. -Request records of patient's recent outpatient echo through Dr. Chun's office (done approximately 1 month ago) -Continue diuresis with IV Lasix 40mg bid, caution with renal function -O2 as needed, patient does not wear oxygen at home -Monitor strict Is&Os -Continue patient's aspirin, plavix, statin, BB; held ALEXANDRO with ANNABEL -Cardiology consulted, patient known to Dr. 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: Upon arrival, Cr 1.6 and GFR 42; patient with baseline CKD stage II with Cr 1.2 and GFR 58 -caution with diuresis, monitor renal function closely; also possibly component of cardiorenal syndrome -held ALEXANDRO for now -monitor BMP daily Diabetes mellitus: chronic stable -hold home metformin secondary to renal function -Monitor accu-checks and cover with SSI History of TIA: chronic, stable -Continue home aspirin/Plavix Bradycardia: suspect secondary to beta christine -hold parameters on coreg -monitor on telemetry -cardiology consulted DVT Prophylaxis: teds/SCDs Sita Gonzalez PA-C Oct 20, 2017 9:06 am
[2017-10-20] MEDS: INSULIN ASPART SUPPLEMENTAL SCALE SQ SCH ×4 (09:27→21:00)
[2017-10-20 13:17] LABS: TROPONIN I LESS THAN 0.02 NG/ML (0.02-0.05)
--- NOTE | 2017-10-20 15:10 | MB ---
cc: BRENNAN ROTH MD, JENNIFER L. MD DATE OF CONSULTATION 10/20/2017 DATE OF 1935 REASON FOR CONSULTATION Management of atrial fibrillation along with acute diastolic CHF. HISTORY OF PRESENT ILLNESS Mr. Buck is an 82-year-old gentleman well-known to me. He did have cardiomyopathy, CHF, PAD, diabetes, hypertension, hypercholesteremia. His cardiomyopathy has improved in the past. Echocardiogram was done in June of 2017 showed EF normal with moderate MR with mild to moderate AR. On the monitor she was noted to have transient atrial fibrillation. She was started on Eliquis. Over the last couple of days the patient has noticed increased abdominal girth and complain of dyspnea and dizziness over the last 24 hours and came to the ER. She has been admitted, so far showed atrial fibrillation with a heart rate in the 50s. He was given Lasix 40 mg with some improvement. He is on fluid restriction. So far orthostatics showed no significant orthostasis. So far troponin has been negative. Again, EKG showed atrial fibrillation. Currently he is on Lasix 40 mg b.i.d. along with fluid restriction. He is also on aspirin and Lovenox 40 mg q.24h. His creatinine is 1.5. PAST MEDICAL HISTORY As above. ALLERGIES No known drug allergies. REVIEW OF SYSTEMS HEENT: Normal. GI: No nausea or vomiting. : No dysuria. MSK: Fatigue. CVS: As above. He has some dyspnea. ENDOCRINE: Normal. SKIN: Normal. PSYCH: Normal. [employer] [place]: Occasional dizziness. PHYSICAL EXAMINATION VITAL SIGNS: The patient's blood pressure is 130/60 with pulse in the 50s with underlying atrial fibrillation. The patient is afebrile. HEENT: Normal oral exam. PERRLA. NECK: No thyroid enlargement. No lymphadenopathy. LUNGS: Decreased breath sounds bilaterally but no wheezing. CARDIOVASCULAR: Irregular intermittent bradycardia. No loud murmurs. ABDOMEN: Active bowel sounds in all four quadrants. : Deferred. EXTREMITIES: Normal range of motion. There is no ecchymosis. PSYCH: The patient has good mood and good judgment. NEUROLOGIC: There is no focal neurologic deficits. LABORATORY Creatinine 1.5. EKG EKG showed atrial fibrillation with intermittent bradycardia. ASSESSMENT 1. Acute diastolic CHF. 2. Atrial fibrillation with intermittent bradycardia. 3. TIA/CVA. 4. Hypertension. 5. Hypercholesteremia. 6. Diabetes. PLAN I do think the CHF could be a combination of MR along with atrial fibrillation. I took the liberty of decreasing the Coreg to 3.125 mg b.i.d. to see how he does. I will continue Lasix 40 mg IV, may consider switching to Bumex tomorrow. I will continue current medication for diabetes and medication for hypertension. So far echocardiogram in May showed the EF is normal with moderate MR and mild to moderate AR. I will follow. I would like to thank Dr. Lau for letting me participate in the care of Mr. Buck. Moris Roth MD JW/BT /1:46 PM /3:03 PM
--- NOTE | 2017-10-20 15:23 | EKG ---
Date Performed: 10/19/2017 Time Performed: 21:09:03 PTAGE: 82 years EKG: ATRIAL FLUTTER/TACHYCARDIA WITH SLOW VENTRICULAR RESPONSE. When compared to previous tracin g, patient is now in an atrial Flutter. ABNORMAL RHYTHM ECG PREVIOUS TRACING : 12/20/2016 04.06 DOCTOR: Sherice Workman Interpretating Date/Time 10/20/2017 15:22:01
--- NOTE | 2017-10-20 15:25 | EKG ---
Date Performed: 10/20/2017 Time Performed: 03:38:00 PTAGE: 82 years EKG: SUPRAVENTRICULAR BRADYCARDIA When compared to previous tracing, patient continues in an atr ial Flutter with a slow ventricular response. ABNORMAL RHYTHM ECG PREVIOUS TRACING : 10/19/2017 21.09.03 DOCTOR: Sherice Workman Interpretating Date/Time 10/22/2017 06:27:55
[2017-10-20] MEDS: CARVEDILOL 3.125 MG TAB PO SCH (20:59)
[2017-10-21] VITALS (14 sets, daily range): BP systolic 135–177; BP diastolic 61–86; PULSE 58–74; RESP 18–20; TEMP 97.7–98.4; O2SAT 93–98
[2017-10-21] MEDS: ENOXAPARIN SODIUM 40 MG/0.4 ML SYRINGE SQ SCH (01:11)
[2017-10-21] MEDS: amLODIPine BESYLATE 5 MG TAB PO SCH (07:13)
[2017-10-21] MEDS: INSULIN ASPART SUPPLEMENTAL SCALE SQ SCH ×4 (08:00→21:00)
[2017-10-21 08:21] LABS: AUTOMATED NEUTROPHIL # 3.9 TH/MM3 (1.8-7.7); BASOPHIL % 0.4 % (0.0-2.0); EOSINOPHIL # 0.2 TH/MM3 (0-0.4); EOSINOPHIL % 3.8 % (0.0-4.0); HEMATOCRIT 36.2 % (39.0-51.0); HEMOGLOBIN 12.6 GM/DL (13.0-17.0); LYMPHOCYTE # 0.9 TH/MM3 (1.0-4.8); MEAN CELL VOLUME 93.2 FL (80.0-100.0); MEAN CORPUSCULAR HEMOGLOBIN 32.4 PG (27.0-34.0); MEAN CORPUSCULAR HGB CONC 34.8 % (32.0-36.0); MEAN PLATELET VOLUME 8.6 FL (7.0-11.0); MONO % 9.6 % (0.0-8.0); MONOCYTE # 0.5 TH/MM3 (0-0.9); NEUT % 69.2 % (16.0-70.0); PLATELET COUNT 156 TH/MM3 (150-450); RED BLOOD COUNT 3.88 MIL/MM3 (4.50-5.90); RED CELL DISTRIBUTION WIDTH 14.7 % (11.6-17.2); WHITE BLOOD COUNT 5.6 TH/MM3 (4.0-11.0)
[2017-10-21 08:48] LABS: BICARBONATE 29.2 MEQ/L (21.0-32.0); CALCIUM 9.3 MG/DL (8.5-10.1); CREATININE 1.35 MG/DL (0.60-1.30); MAGNESIUM 1.6 MG/DL (1.5-2.5)
--- NOTE | 2017-10-21 08:57 | HHI.PR ---
Subjective Remarks Follow up for CHF exacerbation, afib with SVR. The patient reports feeling better again today. He reports his shortness of breath has improved and he was able to ambulate in his room. He has not yet attempted ambulation down the rodriguez. He believes his lower extremity swelling and abdominal fullness also improved. He also reports dizziness has resolved currently. Denies any chest pain or palpitations. Denies any other medical complaints at this time. Objective Vitals Vital Signs Date Time Temp Pulse Resp B/P (MAP) Pulse Ox O2 Delivery O2 Flow Rate FiO2 10/21/17 08:01 73 10/21/17 07:51 97.7 72 20 163/86 (111) 96 159/75 (103) 171/77 (108) 10/21/17 07:39 96 Nasal Cannula 2.00 10/21/17 06:52 67 18 177/86 (116) 96 10/21/17 06:18 21 10/21/17 05:15 98.2 69 18 167/80 (109) 95 10/21/17 04:43 71 10/21/17 01:25 98.0 63 18 156/75 (102) 94 10/21/17 00:01 58 10/20/17 19:59 51 10/20/17 19:40 98.0 53 18 159/66 (97) 96 141/64 (89) 128/64 (85) 10/20/17 19:37 98.2 73 18 122/56 (78) 97 10/20/17 16:41 97.9 50 18 154/66 (95) 94 10/20/17 15:00 49 10/20/17 14:24 97.6 60 18 159/70 (99) 97 10/20/17 11:27 97.8 55 18 148/67 (94) 95 123/58 (79) 118/57 (77) 10/20/17 09:20 96 Nasal Cannula 2.00 10/20/17 08:42 98.0 54 18 160/73 (102) 93 I/O 10/20/17 10/20/17 10/20/17 10/21/17 10/21/17 10/21/17 07:00 15:00 23:00 07:00 15:00 23:00 Intake Total 230 ml Output Total 1500 ml 1600 ml Balance 230 ml -1500 ml -1600 ml Intake Oral 230 ml Output Urine Total 1500 ml 1600 ml Result Diagram: 10/21/17 0740 10/20/17 0331 Imaging Last Impressions Lower Extremity Ultrasound 10/19/172102 Signed Impressions: Service Date/Time: Thursday, October 19, 2017 21:22 - CONCLUSION: 1. No evidence of DVT. 2. Right Olvera's cyst measuring 3.4 cm Xavier Edwards MD Chest X-Ray 10/19/172008 Signed Impressions: Service Date/Time: Thursday, October 19, 2017 20:17 - CONCLUSION: Findings suggestive of pulmonary edema. Bibasilar infiltrates suggestive of atelectasis. Xavier Edwards MD Objective Remarks GENERAL: Well-nourished, well-developed pleasant elderly male patient in NAD. Hard of hearing. SKIN: Warm and dry. No rash. HEENT: Normocephalic. Atraumatic. Pupils equal and round. Mucous membranes pink and moist. NECK: Supple. Trachea midline. CARDIOVASCULAR: Irregular rate and rhythm. S1, S2 noted. No obvious murmur. RESPIRATORY: No accessory muscle use. Breath sounds diminished at bilateral bases otherwise clear. Breath sounds equal bilaterally. GASTROINTESTINAL: Abdomen soft, non-tender, nondistended. Normoactive bowel sounds x4. MUSCULOSKELETAL: No obvious deformities. 1+ bilateral lower extremity edema. NEUROLOGICAL: Awake and alert. No obvious cranial nerve deficits. Motor grossly within normal limits. Normal speech. PSYCHIATRIC: Appropriate mood and affect; insight and judgment normal. Medications and IVs Current Medications Medications (Trade) Dose Ordered Sig/Thea Route Start Time Stop Time Status Last Admin (NS Flush) 2 ml BID IV FLUSH 10/20/17 09:00 10/20/17 22:02 (NS Flush) 2 ml UNSCH PRN IV FLUSH 10/19/17 23:30 (Lasix Inj) 40 mg BID@,18 IVP 10/20/17 09:00 10/20/17 17:52 (Lovenox Inj) 40 mg Q24H SQ 10/20/17 00:00 10/21/17 01:11 (D50w (Vial) Inj) 50 ml UNSCH PRN IV PUSH 10/19/17 23:30 (Glucagon Inj) 1 mg UNSCH PRN OTHER 10/19/17 23:30 (NovoLOG SUPPLEMENTAL SCALE) 1 ACHS SLIDING SCALE SQ 10/20/17 08:00 10/20/17 18:48 (Norvasc) 5 mg DAILY PO 10/20/17 09:00 10/21/17 07:13 (Ecotrin Ec) 81 mg DAILY PO 10/20/17 09:00 10/20/17 09:04 (Plavix) 75 mg DAILY PO 10/20/17 09:00 10/20/17 09:03 (Prinivil) 10 mg DAILY PO 10/20/17 09:00 Future Hold (Pravachol) 20 mg DAILY PO 10/20/17 09:00 10/20/17 09:03 (Duoneb Neb) 1 ampule Q4HR NEB PRN NEB 10/20/17 00:45 (Pneumovax-23 Inj) 25 mcg ONCE ONCE IM 10/21/17 10:00 10/21/17 10:01 (Coreg) 3.125 mg BID PO 10/20/17 21:00 A/P Problem List: (1) Atrial fibrillation with slow ventricular response ICD Code: I48.91 - Unspecified atrial fibrillation (2) Acute respiratory failure with hypoxia ICD Code: J96.01 - Acute respiratory failure with hypoxia Status: Acute (3) CHF exacerbation ICD Code: I50.9 - Heart failure, unspecified Status: Acute (4) HTN (hypertension), malignant ICD Code: I10 - Essential (primary) hypertension Status: Acute Assessment and Plan 82-year-old male with past medical history significant for hypertension, hyperlipidemia, diabetes mellitus, newly diagnosed CHF and history of TIA presents the emergency department complaining of shortness of breath and chest tightness. Acute Respiratory Failure: O2 sat 88% on room air. Suspect secondary to CHF exacerbation. Patient does not wear oxygen at home -see treatment for CHF exacerbation below -incentive spirometry -O2 as needed to keep O2 sat >92% -Home O2 walk test prior to discharge Acute CHF Exacerbation: unknown if systolic vs diastolic vs valvular cardiomyopathy, no previous echo on file. CXR images reviewed, shows pulmonary edema and bibasilar infiltrates suggestive of atelectasis. BNP mildly elevated at 158, however patient also with CKD. -Request records of patient's recent outpatient echo through Dr. Chun's office - records showed Echo with normal LVEF with moderate MR and mild -mod AR. -Continue diuresis with IV Lasix 40mg bid, caution with renal function -O2 as needed, patient does not wear oxygen at home -Monitor strict Is&Os -Continue patient's aspirin, statin, BB, ALEXANDRO -Cardiology consulted, patient known to Dr. Chun, appreciate recommendations Atrial Fibrillation with SVR: HR in 40s-50s. EKG with atrial fibrillation and SVR. -Upon review of records, patient was recently switched to Eliquis in addition to aspirin, and plavix was discontinued -Restart Eliquis, [id number] score at least 7. -Coreg dosing decreased to 3.125mg bid secondary to SVR -Continue to monitor on telemetry -HR improving, currently in 70s Atypical Chest pain: patient reports never having specific chest pains, only tightness associated with the dyspnea -ACS ruled out with negative serial cardiac enzymes x3 and EKG without acute ischemic changes -EKG reviewed, no acute ischemic changes -continue on aspirin -cardiology consulted as above -chest pain resolved Hypertension/hyperlipidemia: chronic, stable -Continue home medications including statin, norvasc, coreg, lisinopril -Monitor BP, adjust antihypertensives as needed ANNABEL on CKD stage II: Upon arrival, Cr 1.6 and GFR 42; patient with baseline CKD stage II with Cr 1.2 and GFR 58 -caution with diuresis, monitor renal function closely; also possibly component of cardiorenal syndrome as renal function improving with diuresis -initially held ALEXANDRO; however renal function improving, Cr 1.3, will restart lisinopril -monitor BMP Diabetes mellitus: chronic stable -held home metformin for now -Monitor accu-checks and cover with SSI History of TIA: chronic, stable -Continue home aspirin and Eliquis DVT Prophylaxis: Eliquis Discharge Planning Possibly discharge later today vs tomorrow if cleared by Dr. hCun. Problem Qualifiers (1) CHF exacerbation: Qualified Codes: I50.9 - Heart failure, unspecified Sita Gonzalez PA-C Oct 21, 2017 08:57
[2017-10-21] MEDS ORDERED: APIXABAN 5 MG TABLET PO SCH (09:00)
[2017-10-21] MEDS: CARVEDILOL 3.125 MG TAB PO SCH ×2 (09:12→20:36)
[2017-10-21] MEDS: FUROSEMIDE 40 MG/4 ML VIAL IVP SCH ×2 (09:12→17:38)
[2017-10-21] MEDS: ASPIRIN EC 81 MG TABEC PO SCH (09:13)
[2017-10-21] MEDS: LISINOPRIL 10 MG TAB PO SCH (09:13)
[2017-10-21] MEDS: PRAVASTATIN SOD 20 MG TAB PO SCH (09:13)
[2017-10-21] MEDS: SODIUM CHLORIDE 0.9% FLUSH 10 ML FLUSH IV FLUSH SCH ×2 (09:13→20:36)
[2017-10-21] MEDS ORDERED: PNEUMOCOCCAL POLYVALENT INJ 25 MCG/0.5 ML SYR IM ONE (10:00)
[2017-10-21] MEDS: APIXABAN 5 MG TABLET PO SCH ×2 (17:40→20:35)
[2017-10-22] VITALS (7 sets, daily range): BP systolic 152–177; BP diastolic 70–83; PULSE 71–74; RESP 18; TEMP 97.7–98.2; O2SAT 95–96
[2017-10-22] MEDS: INSULIN ASPART SUPPLEMENTAL SCALE SQ SCH ×2 (09:03→12:00)
[2017-10-22] MEDS: amLODIPine BESYLATE 5 MG TAB PO SCH (09:05)
[2017-10-22] MEDS: CARVEDILOL 3.125 MG TAB PO SCH (09:05)
[2017-10-22] MEDS: LISINOPRIL 10 MG TAB PO SCH (09:05)
[2017-10-22] MEDS: APIXABAN 5 MG TABLET PO SCH (09:05)
[2017-10-22] MEDS: FUROSEMIDE 40 MG/4 ML VIAL IVP SCH (09:06)
[2017-10-22] MEDS: ASPIRIN EC 81 MG TABEC PO SCH (09:06)
[2017-10-22] MEDS: PRAVASTATIN SOD 20 MG TAB PO SCH (09:06)
[2017-10-22] MEDS: SODIUM CHLORIDE 0.9% FLUSH 10 ML FLUSH IV FLUSH SCH (09:06)
[2017-10-22] MEDS ORDERED: APIX5TAB PO (09:25)
[2017-10-22] MEDS ORDERED: BUME1TAB PO (09:29)
[2017-10-22] MEDS ORDERED: CARV3.125 PO (09:29)
[2017-10-22] MEDS ORDERED: AMLO10 PO (09:30)
[2017-10-22] MEDS ORDERED: amLODIPine BESYLATE 5 MG TAB PO ONE (09:30)
--- NOTE | 2017-10-22 09:30 | HHI.DCPOC ---
Discharge Care Plan Diagnosis: (1) CHF exacerbation (2) HTN (hypertension), malignant (3) Atrial fibrillation with slow ventricular response (4) Lower extremity edema Goals to Promote Your Health * To prevent worsening of your condition and complications * To maintain your health at the optimal level Directions to Meet Your Goals Take your medications as prescribed Follow your dietary instruction Follow activity as directed Keep your appointments as scheduled Take your immunizations and boosters as scheduled If your symptoms worsen call your PCP, if no PCP go to Urgent Care Center or Emergency Room Smoking is Dangerous to Your Health. Avoid second hand smoke Call the 24-hour hour crisis hotline for domestic abuse at Sita Gonzalez PA-C Oct 22, 2017 09:30
--- NOTE | 2017-10-22 09:34 | HHI.FF ---
Face to Face Verification Diagnosis: (1) CHF exacerbation (2) HTN (hypertension), malignant (3) Atrial fibrillation with slow ventricular response (4) Lower extremity edema (5) Pulmonary edema (6) Diabetes 1.5, managed as type 2 (7) Hyperlipidemia (8) CVA (cerebral vascular accident) Home Health Nursing Order: Medical education Signs/symptoms of disease process Diabetic education CHF education Nursing assessment with vital signs I have seen patient Damir Buck on 10/22/17. My clinical findings support the need for the requested home health care services because: Ltd mobility - disease progression Patient has SOB Deconditioned w/ increased weakness Limited ability to care for self I certify that my clinical findings support that this patient is homebound because: Unsteady gait/balance Unsafe to leave home unassisted Unable to use public transportation Sita Gonzalez PA-C Oct 22, 2017 09:34
--- NOTE | 2017-10-22 10:00 | HHI.DS ---
cc: Simba Alicea DO; Brooks Chun MD Discharge Summary Admission Date Oct 19, 2017 at 22:30 Discharge Date: Oct 22, 2017 Admitting Diagnosis chest pain, pulmonary edema, lower extremity edema (1) CHF exacerbation ICD Code: I50.9 - Heart failure, unspecified Status: Acute (2) Atrial fibrillation with slow ventricular response ICD Code: I48.91 - Unspecified atrial fibrillation (3) Acute respiratory failure with hypoxia ICD Code: J96.01 - Acute respiratory failure with hypoxia Status: Acute (4) HTN (hypertension), malignant ICD Code: I10 - Essential (primary) hypertension Status: Acute Procedures None. Brief History - From Admission 82-year-old male with past medical history significant for hypertension, hyperlipidemia, diabetes mellitus, newly diagnosed CHF and history of TIA presents the emergency department complaining of chest pain and shortness of breath. The patient reports he has had shortness of breath on and off for the past month. He reports that he had an upper respiratory infection of some kind and thought that he just had the flu. He came into the emergency department tonight because he was afraid that he had pneumonia. He endorses dyspnea on exertion. He was recently seen by a senior sql server database developer for the first time, Dr. Chun, who started him on Lasix. An echo was also done at that time however the patient does not know the results other than "I have a leaky valve." The patient complains of 2+ lower extremity edema. He denies any fever/chills. Denies abdominal pain. CBC/BMP: 10/21/17 0740 10/21/17 0740 Significant Findings Laboratory Tests Test 10/19/17 20:46 10/20/17 03:31 10/20/17 12:25 10/21/17 07:40 Red Blood Count 4.18 MIL/MM3 (4.50-5.90) 3.83 MIL/MM3 (4.50-5.90) 3.88 MIL/MM3 (4.50-5.90) Neutrophils (%) (Auto) 79.3 % (16.0-70.0) 75.8 % (16.0-70.0) Lymphocytes # (Auto) 0.6 TH/MM3 (1.0-4.8) 0.7 TH/MM3 (1.0-4.8) 0.9 TH/MM3 (1.0-4.8) Prothrombin Time 12.4 SEC (9.8-11.6) Blood Urea Nitrogen 24 MG/DL (7-18) 25 MG/DL (7-18) 23 MG/DL (7-18) Creatinine 1.60 MG/DL (0.60-1.30) 1.51 MG/DL (0.60-1.30) 1.35 MG/DL (0.60-1.30) Random Glucose 132 MG/DL (74-106) 127 MG/DL (74-106) 108 MG/DL (74-106) Estimat Glomerular Filtration Rate 42 ML/MIN (>89) 44 ML/MIN (>89) 51 ML/MIN (>89) Troponin I LESS THAN 0.02 NG/ML LESS THAN 0.02 NG/ML LESS THAN 0.02 NG/ML B-Type Natriuretic Peptide 158 PG/ML (0-100) Hemoglobin 12.3 GM/DL (13.0-17.0) 12.6 GM/DL (13.0-17.0) Hematocrit 36.5 % (39.0-51.0) 36.2 % (39.0-51.0) Monocytes (%) (Auto) 8.1 % (0.0-8.0) 9.6 % (0.0-8.0) Imaging Last Impressions Lower Extremity Ultrasound 10/19/172102 Signed Impressions: Service Date/Time: Thursday, October 19, 2017 21:22 - CONCLUSION: 1. No evidence of DVT. 2. Right Olvera's cyst measuring 3.4 cm Xavier Edwards MD Chest X-Ray 10/19/172008 Signed Impressions: Service Date/Time: Thursday, October 19, 2017 20:17 - CONCLUSION: Findings suggestive of pulmonary edema. Bibasilar infiltrates suggestive of atelectasis. Xavier Edwards MD PE at Discharge GENERAL: Well-nourished, well-developed pleasant elderly male patient in NAD. Hard of hearing. SKIN: Warm and dry. No rash. HEENT: Normocephalic. Atraumatic. Pupils equal and round. Mucous membranes pink and moist. CARDIOVASCULAR: Irregular rate and rhythm. S1, S2 noted. No obvious murmur. RESPIRATORY: No accessory muscle use. Clear to auscultation. Breath sounds equal bilaterally. GASTROINTESTINAL: Abdomen soft, non-tender, nondistended. Normoactive bowel sounds x4. MUSCULOSKELETAL: No obvious deformities. NO lower extremity edema bilaterally today, much improved. NEUROLOGICAL: Awake and alert. No obvious cranial nerve deficits. Motor grossly within normal limits. Normal speech. PSYCHIATRIC: Appropriate mood and affect; insight and judgment normal. Pt update on day of discharge Follow up for CHF exacerbation. The patient reports feeling much better today. He states he is finally able to take a deep breath. He has been able to ambulate his room and to the restroom without difficulty which is much improved for him. He believes his leg swelling has resolved. Continues to deny any chest pain. He wants to go home. Hospital Course 82-year-old male with past medical history significant for hypertension, hyperlipidemia, diabetes mellitus, newly diagnosed CHF and history of TIA presents the emergency department complaining of shortness of breath and chest tightness. Acute Respiratory Failure: O2 sat 88% on room air. Suspect secondary to CHF exacerbation. Patient does not wear oxygen at home. Treated for CHF with diuresis. Given incentive spirometry. Patient passed home O2 walk test and did not require oxygen at discharge. Acute CHF Exacerbation: unknown if systolic vs diastolic vs valvular cardiomyopathy, no previous echo on file. CXR images reviewed, shows pulmonary edema and bibasilar infiltrates suggestive of atelectasis. BNP mildly elevated at 158, however patient also with CKD. Requested records of patient's recent outpatient echo through Dr. Chun's office - records showed Echo with normal LVEF with moderate MR and mild-mod AR. Given diuresis with IV Lasix 40mg bid, caution with renal function. Patient was able to wean off oxygen and passed home O2 walk test. Monitored strict Is&Os, patient diuresed over 4700ml. Continued patient's aspirin, statin, BB, ALEXANDRO. Cardiology consulted, patient known to Dr. Chun, agreed with hospital management. Patient significantly improved, ambulating without difficulty, not requiring oxygen, lower extremity edema resolved, patient wants to go home. Discussed with Dr. Chun on day of discharge, recommended changing diuretic to Bumex 1mg bid and follow up within [address] Chun. Atrial Fibrillation with SVR: HR in 40s-50s. EKG with atrial fibrillation and SVR. Upon review of records, patient was recently switched to Eliquis in addition to aspirin, and plavix was discontinued. Restarted Eliquis 5mg bid, [id number] score at least 7. Coreg dosing decreased to 3.125mg bid secondary to SVR. Continue to monitor on telemetry. HR much improved, consistently in the 70s. Atypical Chest pain: patient reports never having specific chest pains, only tightness associated with the dyspnea. ACS ruled out with negative serial cardiac enzymes x3 and EKG without acute ischemic changes. EKG reviewed, no acute ischemic changes. Continue on aspirin. Chest pain resolved. Hypertension/hyperlipidemia: chronic, BP elevated at times. Continue home medications including statin, norvasc, coreg, lisinopril. Increased Norvasc from 5mg to 10mg daily. ANNABEL on CKD stage II: Upon arrival, Cr 1.6 and GFR 42; patient with baseline CKD stage II with Cr 1.2 and GFR 58. Monitor renal function closely while on diuresis; suspect component of cardiorenal syndrome as renal function improved with diuresis. Initially held ALEXANDRO; however renal function improving, Cr 1.3, restarted lisinopril. Diabetes mellitus: chronic stable. Held home metformin for now. Monitor accu- checks and cover with SSI. Stable. History of TIA: chronic, stable. Continue home aspirin and Eliquis DVT Prophylaxis: Eliquis Pt Condition on Discharge: Stable Discharge Disposition: Disch w/ Home Health Serv Discharge Time: > 30 minutes Discharge Instructions DIET: Follow Instructions for: Heart Healthy Diet, Diabetic Diet, Low Sodium Diet Activities you can perform: Regular-No Restrictions Follow up Referrals: Cardiology - 1 Week with Brooks Chun MD PCP Follow-up - 1 Week with Simba Alicea DO New Medications: Bumetanide (Bumetanide) 1 Mg Tab 1 MG PO BID@0900,1800 for CHF, #60 TAB 0 Refills Amlodipine (Norvasc) 10 Mg Tab 10 MG PO DAILY for Blood Pressure Management, #30 TAB Carvedilol (Coreg) 3.125 Mg Tab 3.125 MG PO BID for Regulate Heart Beat, #60 TAB Continued Medications: Apixaban (Eliquis) 5 Mg Tab 5 MG PO BID for Blood Clot Prevention, #60 TAB [address] (Aspirin 81) 81 Mg Tabdr 81 MG PO DAILY, TAB 0 Refills Glucose Blood (Embrace Blood Glucose Alpa) 1 Alpa Alpa 1 STRIP .XX DIRECTED, #60 Lisinopril (Lisinopril) 10 Mg Tab 10 MG PO DAILY, #30 TAB 0 Refills Metformin (Metformin) 500 Mg Tab 500 MG PO BIDPC for Blood Sugar Management, #60 TAB 0 Refills With meals Simvastatin (Zocor) 10 Mg Tab 10 MG PO DAILY for Cholesterol Management, #30 TAB 0 Refills Discontinued Medications: Amlodipine (Amlodipine) 5 Mg Tab 5 MG PO DAILY for Blood Pressure Management, #30 TAB 0 Refills Carvedilol (Carvedilol) 12.5 Mg Tab 12.5 MG PO BID, #60 TAB 0 Refills Sita Gonzalez PA-C Oct 22, 2017 10:00
== END 2017-10-22 20:02 | disposition home or self-care (01) ==
LOC: NEPE 19:42 → NEDA 22:30 → NEPHCDU 10-20 00:30
PROVIDERS: ADMIT Hospitalist; ATTEND Hospitalist
DX: I50.31 Acute diastolic (congestive) heart failure (principal); I13.0 Hypertensive heart and chronic kidney disease with heart failure and stage 1 through stage 4 chronic kidney disease, or unspecified chronic kidney disease; N18.2 Chronic kidney disease, stage 2 (mild); I42.9 Cardiomyopathy, unspecified; N17.9 Acute kidney failure, unspecified; E11.22 Type 2 diabetes mellitus with diabetic chronic kidney disease; E78.5 Hyperlipidemia, unspecified; J96.01 Acute respiratory failure with hypoxia; I48.91 Unspecified atrial fibrillation; J06.9 Acute upper respiratory infection, unspecified; E78.00 Pure hypercholesterolemia, unspecified; Z79.82 Long term (current) use of aspirin; Z79.84 Long term (current) use of oral hypoglycemic drugs; Z86.73 Personal history of transient ischemic attack (TIA), and cerebral infarction without residual deficits; Z87.891 Personal history of nicotine dependence
CPT/HCPCS: 71046; 80048; 80076; 82550; 82552; 82948; 83735; 83880; 84484; 85025; 85610; 85730; 93005; 93970; 94150; 94618; 96372; 96374; 96376; 97116; 97161; 99285; G0378; G8987; G8988; J1650; J1815; J1940

== ENCOUNTER 2017-11-02 15:26 | Observation (INO) | payer MEDICARE, OTHER ==
[~2017-11-02] VITALS: Ht 180.3 cm; Wt 68.2 kg
[~2017-11-02 15:26] MED LIST changes: +AMLO10 PO; -AMLO5TAB2 PO; +APIX5TAB PO; +BUME1TAB PO; -CARV12.52 PO; +CARV3.125 PO; -PLAV75TA29 PO
[2017-11-02 15:28] VITALS: BP 130/64; PULSE 75; RESP 16; TEMP 98.2; O2SAT 97
[2017-11-02 16:26] LABS: AUTOMATED NEUTROPHIL # 7.6 TH/MM3 (1.8-7.7); BASOPHIL % 0.3 % (0.0-2.0); EOSINOPHIL # 0.1 TH/MM3 (0-0.4); EOSINOPHIL % 1.5 % (0.0-4.0); HEMATOCRIT 40.7 % (39.0-51.0); HEMOGLOBIN 14.1 GM/DL (13.0-17.0); LYMPH % 9.9 % (9.0-44.0); LYMPHOCYTE # 0.9 TH/MM3 (1.0-4.8); MEAN CELL VOLUME 92.9 FL (80.0-100.0); MEAN CORPUSCULAR HEMOGLOBIN 32.1 PG (27.0-34.0); MEAN CORPUSCULAR HGB CONC 34.5 % (32.0-36.0); MEAN PLATELET VOLUME 8.3 FL (7.0-11.0); MONO % 8.4 % (0.0-8.0); MONOCYTE # 0.8 TH/MM3 (0-0.9); NEUT % 79.9 % (16.0-70.0); PLATELET COUNT 203 TH/MM3 (150-450); RED BLOOD COUNT 4.38 MIL/MM3 (4.50-5.90); RED CELL DISTRIBUTION WIDTH 13.8 % (11.6-17.2); WHITE BLOOD COUNT 9.5 TH/MM3 (4.0-11.0)
[2017-11-02 16:31] LABS: BILIRUBIN, URINE NEG (NEG); BLOOD, URINE NEG (NEG); GLUCOSE,URINE NEG (NEG); HYALINE CAST, URINE 19 /lpf (RARE); KETONE, URINE NEG (NEG); MUCUS URINE FEW /lpf (OCC); NITRITE,URINE NEG (NEG); URINE COLOR YELLOW (YELLW/STRAW); URINE LEUKOCYTE ESTERASE NEG (NEG)
[2017-11-02 16:38] LABS: INTERNATIONAL NORMALIZED RATIO 1.2 RATIO; PROTHROMBIN TIME - PATIENT 12.1 SEC (9.8-11.6)
[2017-11-02 16:53] LABS: ALBUMIN 3.9 GM/DL (3.4-5.0); AST (GOT) 21 U/L (15-37); BICARBONATE 31.7 MEQ/L (21.0-32.0); BLOOD UREA NITROGEN 29 MG/DL (7-18); CALCIUM 9.3 MG/DL (8.5-10.1); CHLORIDE 94 MEQ/L (98-107); CREATININE 1.49 MG/DL (0.60-1.30); GLOMERULAR FILTRATION RATE 45 ML/MIN (>89); GLUCOSE,RANDOM 152 MG/DL (74-106); SODIUM (NA) 135 MEQ/L (136-145)
[2017-11-02 16:54] LABS: ALT (GPT) 25 U/L (12-78)
[2017-11-02 16:56] LABS: ALKALINE PHOSPHATASE 101 U/L (45-117); TOTAL BILIRUBIN ADULT 0.6 MG/DL (0.2-1.0); TOTAL PROTEIN 8.3 GM/DL (6.4-8.2)
--- NOTE | 2017-11-02 17:02 | RADRPT ---
EXAM DATE/TIME: 11/02/2017 16:55 [facility] COMPARISON: MRI BRAIN W/O CONTRAST, December 19, 2016, 20:04. CT BRAIN W/O CONTRAST, December 19, 2016, 15:54. INDICATIONS : Headaches. RADIATION DOSE: 37.44 CTDIvol (mGy) MEDICAL HISTORY : Cerebrovascular disease. Cardiovascular disease Hypertension.Diabetes SURGICAL HISTORY : None. ENCOUNTER: Initial ACUITY: 1 day PAIN SCALE: 1/10 LOCATION: cranial TECHNIQUE: Multiple contiguous axial images were obtained of the head. Using automated exposure control and adj ustment of the mA and/or kV according to patient size, radiation dose was kept as low as reasonably a chievable to obtain optimal diagnostic quality images. DICOM format image data is available electro nically for review and comparison. FINDINGS: CEREBRUM: The ventricles are normal for age. No evidence of midline shift, mass lesion, hemorrhage or acute in farction. No extra-axial fluid collections are seen. POSTERIOR FOSSA: Stable encephalomalacia of the inferior left cerebellar hemisphere, unchanged in configuration compar ed to prior CT and MRI. The brainstem is intact. EXTRACRANIAL: The visualized portion of the orbits is intact. No mucosal thickening in the visualized portion of t he paranasal sinuses. SKULL: The calvaria is intact. No evidence of skull fracture. CONCLUSION: No acute findings in the brain. Emile Whitfield MD on November 02, 2017 at 16:59 Board Certified Radiologist. This report was verified electronically.
[2017-11-02 17:30] VITALS: BP 154/80; PULSE 72; RESP 16; O2SAT 97
[2017-11-02] MEDS ORDERED: SODIUM CHLORID 0.9% 500 ML INJ 500 ML IV ONE (17:30)
[2017-11-02] MEDS ORDERED: METF1000 PO (18:31)
[2017-11-02] MEDS ORDERED: LEVO50TA4 PO (18:31)
[2017-11-02] MEDS ORDERED: FURO20TA PO (18:31)
[2017-11-02] MEDS ORDERED: DIATRIZOATE MEGLUM/DIATRIZOATE SOD 9 ML CUP ONE (18:32)
--- NOTE | 2017-11-02 18:51 | PD ---
HPI Chief Complaint: Headache Time Seen by Provider: 18:51 Travel History International Travel<30 days: No Contact w/Intl Traveler<30days: No Traveled to known affect area: No History of Present Illness HPI This is an 82-year-old male with a history of diabetes mellitus, hypertension, hyperlipidemia CHF, pleural effusions, presents here with complaints of nausea and inability to hold down fluids secondary to nausea and vomiting. Patient states that he was recently admitted here for fluid overload. He states they diuresed him during his last admission. He denies any fevers, chills. Patient states he has a strange smell in his nose that makes him severely nauseous. He states he also has abdominal discomfort that causes him to vomit. There is no diarrhea. There is no productive cough or shortness of breath. The patient's is concerned because he has not been eating or drinking well. She reports that they have not been able to find out what is wrong with him. PFSH Past Medical History Hx Anticoagulant Therapy: Yes Arthritis: No Asthma: No Blood Disorders: No Heart Rhythm Problems: No Cancer: No Cardiovascular Problems: Yes High Cholesterol: Yes (takes medication) Chest Pain: No Congestive Heart Failure: Yes COPD: No Cerebrovascular Accident: Yes Diabetes: Yes Patient Takes Glucophage: No Diminished Hearing: No GERD: No Genitourinary: No Hiatal Hernia: No Hypertension: Yes Kidney Stones: No Musculoskeletal: No Neurologic: Yes (03-20-2017) Psychiatric: No Reproductive: No Respiratory: Yes (pt is here for sob) Immunizations Current: Yes Migraines: No Renal Failure: No Sleep Apnea: No Thyroid Disease: Yes Ulcer: No Past Surgical History Abdominal Surgery: Yes Cardiac Surgery: No Ear Surgery: No Endocrine Surgery: No Eye Surgery: No Genitourinary Surgery: No Gynecologic Surgery: No Oral Surgery: No Thoracic Surgery: Yes Other Surgery: Yes (tonsiclectomy, hernia 2007,left cyst 2007) Social History Alcohol Use: No Tobacco Use: No Substance Use: No Allergies-Medications (Allergen,Severity, Reaction): Coded Allergies: No Known Allergies (Unverified , 05/15/13) Reported Meds & Prescriptions Reported Meds & Active Scripts Active Norvasc (Amlodipine Besylate) 10 Mg Tab 10 Mg PO DAILY Bumetanide 1 Mg Tab 1 Mg PO BID@0900,1800 Coreg (Carvedilol) 3.125 Mg Tab 3.125 Mg PO BID Eliquis (Apixaban) 5 Mg Tab 5 Mg PO BID Embrace Blood Glucose Alpa (Glucose Blood) 1 Alpa Alpa 1 Strip .XX DIRECTED Reported Furosemide 20 Mg Tab 20 Mg PO BID Levothyroxine (Levothyroxine Sodium) 50 Mcg Tab 50 Mcg PO DAILY Metformin (Metformin HCl) 1,000 Mg Tab Unknown Dose PO BIDPC Aspirin 81 (Aspirin) 81 Mg Tabdr 81 Mg PO DAILY Lisinopril 10 Mg Tab 10 Mg PO DAILY Zocor (Simvastatin) 10 Mg Tab 10 Mg PO DAILY Metformin (Metformin HCl) 500 Mg Tab 500 Mg PO BIDPC With meals Review of Systems Except as stated in HPI: all other systems reviewed are Neg General / Constitutional: No: Fever, Chills HENT: No: Headaches, Lightheadedness, Neck Pain Cardiovascular: No: Chest Pain or Discomfort, Palpitations Respiratory: No: Cough, Shortness of Breath Gastrointestinal: Positive: Nausea, Vomiting, Abdominal Pain (Generalized), Constipation, No: Diarrhea Genitourinary: No: Dysuria, Decreased Urinary Output Musculoskeletal: Positive: Weakness (Generalized), No: Pain Neurologic: Positive: Weakness (Generalized), Other (Sawdust and), No: Headache , Change in Mentation ( musty smell to his nose.) Physical Exam Narrative GENERAL: Well-developed well-nourished male in no acute respiratory distress. SKIN: Focused skin assessment warm/dry. HEAD: Atraumatic. Normocephalic. EYES: No scleral icterus. No injection or drainage. ENT: No nasal bleeding or discharge. Mucous membranes pink and moist. NECK: Trachea midline. Supple. CARDIOVASCULAR: Regular rate and rhythm. No murmur appreciated. RESPIRATORY: No accessory muscle use. Clear to auscultation. Breath sounds equal bilaterally. GASTROINTESTINAL: Abdomen soft, nondistended. Patient has subjective tenderness in his periumbilical area in all 4 quadrants. No rebound or guarding. No pulsatile masses. MUSCULOSKELETAL: No obvious deformities. No clubbing. No cyanosis. No edema. NEUROLOGICAL: Awake and alert. No obvious cranial nerve deficits. Motor grossly within normal limits. Normal speech. Data Data Last Documented VS Vital Signs Date Time Temp Pulse Resp B/P (MAP) Pulse Ox O2 Delivery O2 Flow Rate FiO2 11/02/17 17:40 73 16 99 Room Air 11/02/17 17:30 154/80 (104) 11/02/17 15:28 98.2 Orders Orders Complete Blood Count With Diff (11/02/17 15:37) Urinalysis - C+S If Indicated (11/02/17 15:37) Coag Profile (11/02/17 15:37) Ct Brain W/O Iv Contrast(Rout) (11/02/17 ) Electrocardiogram (11/02/17 ) Lipase (11/02/17 15:37) Comprehensive Metabolic Panel (11/02/17 15:37) Ct Abd/Pel W/O Iv Contrast (11/02/17 17:25) Sodium Chlorid 0.9% 500 Ml Inj (Ns 500 M (11/02/17 17:30) Oral Contrast - Adult (11/02/17 17:57) Diatrizoate Liq ( Gastroview Liq) (11/02/17 18:32) Labs Laboratory Tests Test 11/02/17 16:05 White Blood Count 9.5 TH/MM3 Red Blood Count 4.38 MIL/MM3 Hemoglobin 14.1 GM/DL Hematocrit 40.7 % Mean Corpuscular Volume 92.9 FL Mean Corpuscular Hemoglobin 32.1 PG Mean Corpuscular Hemoglobin Concent 34.5 % Red Cell Distribution Width 13.8 % Platelet Count 203 TH/MM3 Mean Platelet Volume 8.3 FL Neutrophils (%) (Auto) 79.9 % Lymphocytes (%) (Auto) 9.9 % Monocytes (%) (Auto) 8.4 % Eosinophils (%) (Auto) 1.5 % Basophils (%) (Auto) 0.3 % Neutrophils # (Auto) 7.6 TH/MM3 Lymphocytes # (Auto) 0.9 TH/MM3 Monocytes # (Auto) 0.8 TH/MM3 Eosinophils # (Auto) 0.1 TH/MM3 Basophils # (Auto) 0.0 TH/MM3 CBC Comment DIFF FINAL Differential Comment Prothrombin Time 12.1 SEC Prothromb Time International Ratio 1.2 RATIO Activated Partial Thromboplast Time 26.9 SEC Urine Color YELLOW Urine Turbidity CLEAR Urine pH 5.0 Urine Specific [place] 1.010 Urine Protein NEG mg/dL Urine Glucose (UA) NEG mg/dL Urine Ketones NEG mg/dL Urine Occult Blood NEG Urine Nitrite NEG Urine Bilirubin NEG Urine Urobilinogen LESS THAN 2.0 MG/DL Urine Leukocyte Esterase NEG Urine RBC LESS THAN 1 /hpf Urine WBC LESS THAN 1 /hpf Urine Hyaline Casts 19 /lpf Urine Mucus FEW /lpf Microscopic Urinalysis Comment CULT NOT INDICATED Blood Urea Nitrogen 29 MG/DL Creatinine 1.49 MG/DL Random Glucose 152 MG/DL Total Protein 8.3 GM/DL Albumin 3.9 GM/DL Calcium Level 9.3 MG/DL Alkaline Phosphatase 101 U/L Aspartate Amino Transf (AST/SGOT) 21 U/L Alanine Aminotransferase (ALT/SGPT) 25 U/L Total Bilirubin 0.6 MG/DL Sodium Level 135 MEQ/L Potassium Level 3.4 MEQ/L Chloride Level 94 MEQ/L Carbon Dioxide Level 31.7 MEQ/L Anion Gap 9 MEQ/L Estimat Glomerular Filtration Rate 45 ML/MIN Lipase 100 U/L [facility] Medical Decision Making Medical Screen Exam Complete: Yes Emergency Medical Condition: Yes Differential Diagnosis Metabolic derangement versus pancreatitis versus UTI versus intra-abdominal pathology. Narrative Course 82-year-old male presents with nausea vomiting abdominal pain. Patient had a recent admission for CHF exacerbation. Patient had 20 pound weight loss after diuresis. Patient states he is not able to eat because he has a strange smell and having abdominal discomfort. He was seen initially in triage and labs were ordered. A CT scan of his abdomen pelvis was not ordered. Patient has renal insufficiency which is not acute. CT scan of abdomen pelvis without IV contrast and oral contrast only is pending at this time. He will be signed out to Dr. Mcdermott will follow up on their results. There is a good possibility he may need to be admitted for intractable nausea and vomiting. Disposition will be pending Dr. Mcdermott's evaluation. Eris Hewitt MD Nov 02, 2017 18:51
--- NOTE | 2017-11-02 19:14 | PD ---
Physical Exam Date Seen by Provider: Nov 02, 2017 Time Seen by Provider: 19:12 Narrative The patient is a 82-year-old male who was initially evaluated by the previous physician, Dr. Hewitt. Please refer to the initial history, physical , diagnostic evaluation, and treatment modality plan. The patient was signed out at [address] of the abdomen and pelvis pending as well as 23 hour observation/admission pending per his report for intractable nausea. Data Data Last Documented VS Vital Signs Date Time Temp Pulse Resp B/P (MAP) Pulse Ox O2 Delivery O2 Flow Rate FiO2 11/02/17 19:39 73 18 156/73 (100) 99 Room Air 11/02/17 15:28 98.2 Orders Orders Complete Blood Count With Diff (11/02/17 15:37) Urinalysis - C+S If Indicated (11/02/17 15:37) Coag Profile (11/02/17 15:37) Ct Brain W/O Iv Contrast(Rout) (11/02/17 ) Electrocardiogram (11/02/17 ) Lipase (11/02/17 15:37) Comprehensive Metabolic Panel (11/02/17 15:37) Ct Abd/Pel W/O Iv Contrast (11/02/17 17:25) Sodium Chlorid 0.9% 500 Ml Inj (Ns 500 M (11/02/17 17:30) Oral Contrast - Adult (11/02/17 17:57) Diatrizoate Liq ( Gastrohemal Liq) (11/02/17 18:32) Metoclopramide Inj (Reglan Inj) (11/02/17 22:15) Admit Order (Ed Use Only) (11/02/17 22:14) Labs Laboratory Tests Test 11/02/17 16:05 White Blood Count 9.5 TH/MM3 Red Blood Count 4.38 MIL/MM3 Hemoglobin 14.1 GM/DL Hematocrit 40.7 % Mean Corpuscular Volume 92.9 FL Mean Corpuscular Hemoglobin 32.1 PG Mean Corpuscular Hemoglobin Concent 34.5 % Red Cell Distribution Width 13.8 % Platelet Count 203 TH/MM3 Mean Platelet Volume 8.3 FL Neutrophils (%) (Auto) 79.9 % Lymphocytes (%) (Auto) 9.9 % Monocytes (%) (Auto) 8.4 % Eosinophils (%) (Auto) 1.5 % Basophils (%) (Auto) 0.3 % Neutrophils # (Auto) 7.6 TH/MM3 Lymphocytes # (Auto) 0.9 TH/MM3 Monocytes # (Auto) 0.8 TH/MM3 Eosinophils # (Auto) 0.1 TH/MM3 Basophils # (Auto) 0.0 TH/MM3 CBC Comment DIFF FINAL Differential Comment Prothrombin Time 12.1 SEC Prothromb Time International Ratio 1.2 RATIO Activated Partial Thromboplast Time 26.9 SEC Urine Color YELLOW Urine Turbidity CLEAR Urine pH 5.0 Urine Specific [place] 1.010 Urine Protein NEG mg/dL Urine Glucose (UA) NEG mg/dL Urine Ketones NEG mg/dL Urine Occult Blood NEG Urine Nitrite NEG Urine Bilirubin NEG Urine Urobilinogen LESS THAN 2.0 MG/DL Urine Leukocyte Esterase NEG Urine RBC LESS THAN 1 /hpf Urine WBC LESS THAN 1 /hpf Urine Hyaline Casts 19 /lpf Urine Mucus FEW /lpf Microscopic Urinalysis Comment CULT NOT INDICATED Blood Urea Nitrogen 29 MG/DL Creatinine 1.49 MG/DL Random Glucose 152 MG/DL Total Protein 8.3 GM/DL Albumin 3.9 GM/DL Calcium Level 9.3 MG/DL Alkaline Phosphatase 101 U/L Aspartate Amino Transf (AST/SGOT) 21 U/L Alanine Aminotransferase (ALT/SGPT) 25 U/L Total Bilirubin 0.6 MG/DL Sodium Level 135 MEQ/L Potassium Level 3.4 MEQ/L Chloride Level 94 MEQ/L Carbon Dioxide Level 31.7 MEQ/L Anion Gap 9 MEQ/L Estimat Glomerular Filtration Rate 45 ML/MIN Lipase 100 U/L [facility] Medical Record Reviewed: Yes Supervised Visit with JOCY: No Interpretation(s) Laboratory Tests Test 11/02/17 16:05 White Blood Count 9.5 TH/MM3 Red Blood Count 4.38 MIL/MM3 Hemoglobin 14.1 GM/DL Hematocrit 40.7 % Mean Corpuscular Volume 92.9 FL Mean Corpuscular Hemoglobin 32.1 PG Mean Corpuscular Hemoglobin Concent 34.5 % Red Cell Distribution Width 13.8 % Platelet Count 203 TH/MM3 Mean Platelet Volume 8.3 FL Neutrophils (%) (Auto) 79.9 % Lymphocytes (%) (Auto) 9.9 % Monocytes (%) (Auto) 8.4 % Eosinophils (%) (Auto) 1.5 % Basophils (%) (Auto) 0.3 % Neutrophils # (Auto) 7.6 TH/MM3 Lymphocytes # (Auto) 0.9 TH/MM3 Monocytes # (Auto) 0.8 TH/MM3 Eosinophils # (Auto) 0.1 TH/MM3 Basophils # (Auto) 0.0 TH/MM3 CBC Comment DIFF FINAL Differential Comment Prothrombin Time 12.1 SEC Prothromb Time International Ratio 1.2 RATIO Activated Partial Thromboplast Time 26.9 SEC Urine Color YELLOW Urine Turbidity CLEAR Urine pH 5.0 Urine Specific [place] 1.010 Urine Protein NEG mg/dL Urine Glucose (UA) NEG mg/dL Urine Ketones NEG mg/dL Urine Occult Blood NEG Urine Nitrite NEG Urine Bilirubin NEG Urine Urobilinogen LESS THAN 2.0 MG/DL Urine Leukocyte Esterase NEG Urine RBC LESS THAN 1 /hpf Urine WBC LESS THAN 1 /hpf Urine Hyaline Casts 19 /lpf Urine Mucus FEW /lpf Microscopic Urinalysis Comment CULT NOT INDICATED Blood Urea Nitrogen 29 MG/DL Creatinine 1.49 MG/DL Random Glucose 152 MG/DL Total Protein 8.3 GM/DL Albumin 3.9 GM/DL Calcium Level 9.3 MG/DL Alkaline Phosphatase 101 U/L Aspartate Amino Transf (AST/SGOT) 21 U/L Alanine Aminotransferase (ALT/SGPT) 25 U/L Total Bilirubin 0.6 MG/DL Sodium Level 135 MEQ/L Potassium Level 3.4 MEQ/L Chloride Level 94 MEQ/L Carbon Dioxide Level 31.7 MEQ/L Anion Gap 9 MEQ/L Estimat Glomerular Filtration Rate 45 ML/MIN Lipase 100 U/L Last Impressions Abdomen/Pelvis CT 11/02/17 1725 Signed Impressions: Service Date/Time: Thursday, November 02, 2017 21:08 - CONCLUSION: Large left inguinal region mass as described. Otherwise unremarkable Dheeraj Pascual MD Head CT 11/02/17 0000 Signed Impressions: Service Date/Time: Thursday, November 02, 2017 16:55 - CONCLUSION: No acute findings in the brain. Emile Whitfield MD Differential Diagnosis Differential diagnosis includes gastritis, esophagitis, peptic ulcer disease, cholecystitis, biliary colic, pancreatitis, dehydration, acute kidney injury, cancer. Narrative Course The patient was initially evaluated by the previous physician, Dr. Hewitt. Please refer to the initial history, physical, diagnostic evaluation, and treatment modality plan. The patient was signed out at [address] of the abdomen and pelvis pending. The patient had mild chronic kidney injury which appears chronic, LFTs and lipase are unremarkable. CT of the abdomen and pelvis reveals a large left inguinal mass measuring 10 cm. On physical examination it is a hard fixed mass, nontender, no fluctuance. The patient states he has a history of the mass, had a biopsy in [address] Trinh at [facility], states he sent the pathology report to [facility] and he was advised that it was benign. He does note increasing nausea, vomiting, and burping over the last several days, however, symptoms been ongoing for months. He does have a history of diabetes, denies any previous endoscopy or workup for gastroparesis. The patient has not tolerated any foods or fluids today, and had difficulty tolerating solids and liquids over the last several days. I did discussion with the patient regarding possible workup including GI consultation for endoscopy and gastric emptying study. We had a discussion regarding inpatient versus outpatient workup, he does not meet for a full admit, would only need for 23 hour robs. After discussion, the patient would like to stay and see GI to see if he did have some test performed to evaluate for this intractable nausea vomiting. He was administered Reglan at 10 PM for continuing burping and nausea. Patient will be placed on IV fluids. The on- call medical service was paged for 23 hour observation. The patient is on Metformin for his i diabetes, however, states he takes the Lantus only when his blood sugars greater than 180. The patient thinks the dose of Lantus is 100 units, however, he does not take it every day. However, the thinks he is taking the Lantus every day. The patient is a somewhat limited historian. Physician Communication Physician Communication The on-call medical service was paged for 23 hour observation. I discussed the patient with Dr. Lau who agrees with 23 hour observation. Diagnosis Primary Impression: Intractable nausea and vomiting Qualified Codes: R11.2 - Nausea with vomiting, unspecified Additional Impression: Mass of left inguinal region Admitting Information Admitting Physician Requests: Observation Condition: Stable Daren Mcdermott MD Nov 02, 2017 19:14
[2017-11-02 19:39] VITALS: BP 156/73; PULSE 73; RESP 18; O2SAT 99
--- NOTE | 2017-11-02 21:49 | RADRPT ---
EXAM DATE/TIME: 11/02/2017 21:08 [facility] COMPARISON: No previous studies available for comparison. INDICATIONS : Patient complains of abdominal pain. ORAL CONTRAST: Prescribed oral contrast ingested. RADIATION DOSE: 6.64 CTDIvol (mGy) MEDICAL HISTORY : Cerebrovascular disease. Cardiovascular disease Hypertension.diabetic,syncope SURGICAL HISTORY : None. ENCOUNTER: Initial ACUITY: 1 day PAIN SCALE: 6/10 LOCATION: abdomen TECHNIQUE: Volumetric scanning of the abdomen and pelvis was performed. Using automated exposure control and ad justment of the mA and/or kV according to patient size, radiation dose was kept as low as reasonably achievable to obtain optimal diagnostic quality images. DICOM format image data is available electro nically for review and comparison. FINDINGS: LOWER LUNGS: The visualized lower lungs are clear. LIVER: Homogeneous density without lesion. There is no dilation of the biliary tree. No calcified gallston es. SPLEEN: Normal size without lesion. PANCREAS: Within normal limits. KIDNEYS: Normal in size and shape. There is no mass, stone, or hydronephrosis. ADRENAL GLANDS: Within normal limits. VASCULAR: There is no aortic aneurysm. BOWEL/MESENTERY: The stomach, small bowel, and colon demonstrate no acute abnormality. There is no free intraperitone al air or fluid. ABDOMINAL WALL: Within normal limits. RETROPERITONEUM: There is no lymphadenopathy. BLADDER: No wall thickening or mass. REPRODUCTIVE: Within normal limits. INGUINAL: There is a nearly 10 cm heterogeneous mass associated with the left inguinal region, potentially with in the inguinal canal area mass is septated with areas of mixed density. Differential considerations would include neoplasm, abscess, hematoma MUSCULOSKELETAL: Within normal limits for patient age. CONCLUSION: Large left inguinal region mass as described. Otherwise unremarkable Dheeraj Pascual MD on November 02, 2017 at 21:43 Board Certified Radiologist. This report was verified electronically.
[2017-11-02] MEDS ORDERED: METOCLOPRAMIDE HCL 10 MG/2 ML VIAL IV PUSH ONE (22:15)
[2017-11-02] MEDS ORDERED: SODIUM CHLOR 0.9% 1000 ML INJ 1,000 ML IV SCH (22:46)
[2017-11-02] MEDS ORDERED: GLUCAGON 1 MG/ML VIAL OTHER PRN (23:00)
[2017-11-02] MEDS ORDERED: METOCLOPRAMIDE HCL 10 MG/2 ML VIAL IV PUSH PRN (23:00)
[2017-11-02] MEDS ORDERED: SODIUM CHLORIDE 0.9% FLUSH 10 ML FLUSH IV FLUSH PRN (23:00)
[2017-11-02] MEDS ORDERED: ONDANSETRON HCL 4 MG/2 ML VIAL IVP PRN (23:00)
[2017-11-02] MEDS ORDERED: DEXTROSE 50% IN WATER 50 ML VIAL(D50) IV PUSH PRN (23:00)
[2017-11-03] VITALS (10 sets, daily range): BP systolic 126–166; BP diastolic 65–81; PULSE 73–79; RESP 16–20; TEMP 96.6–98.3; O2SAT 94–99
--- NOTE | 2017-11-03 00:06 | HHI.HP ---
[facility] Simba Alicea DO Admission Diagnosis Intractable nausea/vomiting, left inguinal mass, rule out gastropare Diagnoses: Travel History International Travel<30 Days: No Contact w/Intl Traveler <30 Da: No Traveled to Known Affected Are: No History of Present Illness 82-year-old male with past medical history significant for hypertension, hyperlipidemia, diabetes mellitus, CHF (echo done 12/20/16 showed an EF of 45-50% ) and history of TIA presents the emergency department for evaluation of nausea and vomiting. The patient reports he was in his usual state of health until Thursday when he became constantly nauseated with associated postprandial emesis. His reports that he vomits everything that he eats. He also has constant belching. He reports right upper quadrant tenderness. He denies any fever/chills. Denies shortness of breath/chest pain. Denies diarrhea. Review of Systems Except as stated in HPI: all other systems reviewed are Neg Past Family Social History Past Medical History Hypertension Hyperlipidemia Diabetes mellitus CHF with an EF of 45-50% History of TIA Past Surgical History Benign inguinal mass removal Reported Medications Reported Meds & Active Scripts Active Norvasc (Amlodipine Besylate) 10 Mg Tab 10 Mg PO DAILY Bumetanide 1 Mg Tab 1 Mg PO BID@0900,1800 Coreg (Carvedilol) 3.125 Mg Tab 3.125 Mg PO BID Eliquis (Apixaban) 5 Mg Tab 5 Mg PO BID Embrace Blood Glucose Alpa (Glucose Blood) 1 Alpa Alpa 1 Strip .XX DIRECTED Reported Furosemide 20 Mg Tab 20 Mg PO BID Levothyroxine (Levothyroxine Sodium) 50 Mcg Tab 50 Mcg PO DAILY Metformin (Metformin HCl) 1,000 Mg Tab Unknown Dose PO BIDPC Aspirin 81 (Aspirin) 81 Mg Tabdr 81 Mg PO DAILY Lisinopril 10 Mg Tab 10 Mg PO DAILY Zocor (Simvastatin) 10 Mg Tab 10 Mg PO DAILY Metformin (Metformin HCl) 500 Mg Tab 500 Mg PO BIDPC With meals Allergies: Coded Allergies: No Known Allergies (Unverified , 05/15/13) Family History Both parents with diabetes mellitus Social History Remote history of smoking. Denies alcohol, illicit drugs. Physical Exam Vital Signs Vital Signs Date Time Temp Pulse Resp B/P (MAP) Pulse Ox O2 Delivery O2 Flow Rate FiO2 11/02/17 23:51 11/02/17 19:39 73 18 156/73 (100) 99 Room Air 11/02/17 17:40 73 16 99 Room Air 11/02/17 17:30 72 16 154/80 (104) 97 11/02/17 15:28 98.2 75 16 130/64 (86) 97 Physical Exam GENERAL: male lying upright in bed with frequent belching SKIN: No rashes, ecchymoses or lesions. Cool and dry. HEAD: Atraumatic. Normocephalic. No temporal or scalp tenderness. EYES: Pupils equal round and reactive. Extraocular motions intact. No scleral icterus. No injection or drainage. ENT: Nose without bleeding, purulent drainage or septal hematoma. Throat without erythema, tonsillar hypertrophy or exudate. Uvula midline. Airway patent. NECK: Trachea midline. No JVD or lymphadenopathy. Supple, nontender, no meningeal signs. CARDIOVASCULAR: Regular rate and rhythm without murmurs, gallops, or rubs. RESPIRATORY: Clear to auscultation. Breath sounds equal bilaterally. No wheezes , rales, or rhonchi. GASTROINTESTINAL: Abdomen soft, mildly distended and tender to palpation in the right upper quadrant. No peritoneal signs or rebound tenderness. No guarding. MUSCULOSKELETAL: Extremities without clubbing, cyanosis, or edema. No joint tenderness, effusion, or edema noted. No calf tenderness. NEUROLOGICAL: Awake and alert. Cranial nerves II through XII intact. Motor and sensory grossly within normal limits. Normal speech. Laboratory Laboratory Tests Test 11/02/17 16:05 White Blood Count 9.5 Red Blood Count 4.38 Hemoglobin 14.1 Hematocrit 40.7 Mean Corpuscular Volume 92.9 Mean Corpuscular Hemoglobin 32.1 Mean Corpuscular Hemoglobin Concent 34.5 Red Cell Distribution Width 13.8 Platelet Count 203 Mean Platelet Volume 8.3 Neutrophils (%) (Auto) 79.9 Lymphocytes (%) (Auto) 9.9 Monocytes (%) (Auto) 8.4 Eosinophils (%) (Auto) 1.5 Basophils (%) (Auto) 0.3 Neutrophils # (Auto) 7.6 Lymphocytes # (Auto) 0.9 Monocytes # (Auto) 0.8 Eosinophils # (Auto) 0.1 Basophils # (Auto) 0.0 CBC Comment DIFF FINAL Differential Comment Prothrombin Time 12.1 Prothromb Time International Ratio 1.2 Activated Partial Thromboplast Time 26.9 Urine Color YELLOW Urine Turbidity CLEAR Urine pH 5.0 Urine Specific [place] 1.010 Urine Protein NEG Urine Glucose (UA) NEG Urine Ketones NEG Urine Occult Blood NEG Urine Nitrite NEG Urine Bilirubin NEG Urine Urobilinogen LESS THAN 2.0 Urine Leukocyte Esterase NEG Urine RBC LESS THAN 1 Urine WBC LESS THAN 1 Urine Hyaline Casts 19 Urine Mucus FEW Microscopic Urinalysis Comment CULT NOT INDICATED Blood Urea Nitrogen 29 Creatinine 1.49 Random Glucose 152 Total Protein 8.3 Albumin 3.9 Calcium Level 9.3 Alkaline Phosphatase 101 Aspartate Amino Transf (AST/SGOT) 21 Alanine Aminotransferase (ALT/SGPT) 25 Total Bilirubin 0.6 Sodium Level 135 Potassium Level 3.4 Chloride Level 94 Carbon Dioxide Level 31.7 Anion Gap 9 Estimat Glomerular Filtration Rate 45 Lipase 100 Result Diagram: 11/02/17 1605 11/02/17 1605 Caprini VTE Risk Assessment Caprini VTE Risk Assessment: Mod/High Risk (score >= 2) Caprini Risk Assessment Model Point Value = 1 Point Value = 2 Point Value = 3 Point Value = 5 Age 41-60 Minor surgery BMI > 25 kg/m2 Swollen legs Varicose veins or History of unexplained or recurrent spontaneous Oral contraceptives or hormone replacement Sepsis (< 1 month) Serious lung disease, including pneumonia (< 1 month) Abnormal pulmonary function Acute myocardial infarction Congestive heart failure (< 1 month) History of inflammatory bowel disease Medical patient at bed rest Age 61-74 Arthroscopic surgery Major open surgery (> 45 min) Laparoscopic surgery (> 45 min) Malignancy Confined to bed (> 72 hours) Immobilizing plaster cast Central venous access Age >= 75 History of VTE Family history of VTE Factor V Leiden Prothrombin [id number] Lupus anticoagulant Anticardiolipin antibodies Elevated serum homocysteine Heparin-induced thrombocytopenia Other congenital or acquired thrombophilia Stroke (< 1 month) Elective arthroplasty Hip, pelvis, or leg fracture Acute spinal cord injury (< 1 month) Prophylaxis Regimen Total Risk Factor Score Risk Level Prophylaxis Regimen 0-1 Low Early ambulation 2 Moderate Order ONE of the following: *Sequential Compression Device (SCD) *Heparin 5000 units SQ BID 3-4 Higher Order ONE of the following medications: *Heparin 5000 units SQ TID *Enoxaparin/Lovenox 40 mg SQ daily (WT < 150 kg, CrCl > 30 mL/min) *Enoxaparin/Lovenox 30 mg SQ daily (WT < 150 kg, CrCl > 10-29 mL/min) *Enoxaparin/Lovenox 30 mg SQ BID (WT < 150 kg, CrCl > 30 mL/min) AND/OR *Sequential Compression Device (SCD) 5 or more Highest Order ONE of the following medications: *Heparin 5000 units SQ TID (Preferred with Epidurals) *Enoxaparin/Lovenox 40 mg SQ daily (WT < 150 kg, CrCl > 30 mL/min) *Enoxaparin/Lovenox 30 mg SQ daily (WT < 150 kg, CrCl > 10-29 mL/min) *Enoxaparin/Lovenox 30 mg SQ BID (WT < 150 kg, CrCl > 30 mL/min) AND *Sequential Compression Device (SCD) Assessment and Plan Assessment and Plan Assessment/plan: 1. Abdominal pain/nausea/vomiting/postprandial emesis CT abdomen and pelvis showed a large left inguinal mass, chronic Concern for gastroparesis, gastritis, esophagitis/stricture Gastric emptying study pending Gastroenterology consulted, appreciate recommendations 2. Inguinal mass Patient reports this was initially diagnosed in 2008 and was biopsied, biopsy showed benign mass Follow-up as an outpatient 3. Diabetes mellitus Patient reports he takes 100 units of Lantus when necessary Sliding scale insulin Monitor blood glucose 4. Hypertension/hyperlipidemia/CHF/hypothyroidism Continue home medications 5. History of TIA Holding [employer] Heart healthy diet Electrolytes: monitor and replete prn Holding pharmacologic anticoagulation for possible procedure tomorrow Delia Lau MD Nov 03, 2017 00:06
[2017-11-03] MEDS: NS + KCL 20 MEQ INJ 1,000 ML IV SCH ×2 (00:29→17:48)
[2017-11-03] MEDS: PRAVASTATIN SOD 20 MG TAB PO SCH ×2 (00:30→17:48)
[2017-11-03] MEDS: INSULIN ASPART SUPPLEMENTAL SCALE SQ SCH ×4 (08:00→21:00)
--- NOTE | 2017-11-03 08:32 | PD.CONS ---
HPI History of Present Illness This is a 82 year old male with hx TIA on eliquis, DM, very [place] who presented with n/v. For 5 days he has had nausea, burping and dry heaving. He denies vomiting, abd pain. He admits 1 or 2 episodes of diarrhea. He has been unable to eat. Never had an EGD. He had a colonoscopy at the office on [address]. He does not know when this was or what the findings were. Pt is poor historian. (Patito Pagan) PFSH Past Medical History Hypertension Hyperlipidemia Diabetes mellitus CHF with an EF of 45-50% History of TIA Past Surgical History Benign inguinal mass removal (Patito Pagan) Coded Allergies: No Known Allergies (Unverified , 05/15/13) Family History Both parents with diabetes mellitus Social History Remote history of smoking. Denies alcohol, illicit drugs. (Patito Pagan) Review of Systems Constitutional: DENIES: Fever Endocrine: DENIES: Polydipsia Eyes: DENIES: Blurred vision Ears, nose, mouth, throat: COMPLAINS OF: Hearing loss Respiratory: DENIES: Cough Cardiovascular: DENIES: Chest pain Gastrointestinal: COMPLAINS OF: Diarrhea, Nausea, Vomiting, DENIES: Abdominal pain, Black stools, Bloody stools Musculoskeletal: DENIES: Muscle aches Integumentary: DENIES: Jaundice Neurologic: DENIES: Abnormal gait Psychiatric: DENIES: Confusion (Patito Pagan) GI Exam Vitals I&O Vital Signs Date Time Temp Pulse Resp B/P (MAP) Pulse Ox O2 Delivery O2 Flow Rate FiO2 11/03/17 07:39 97.8 75 16 166/81 (109) 98 11/03/17 01:19 73 11/03/17 00:22 97.8 74 18 155/74 (101) 94 11/02/17 23:51 11/02/17 19:39 73 18 156/73 (100) 99 Room Air 11/02/17 17:40 73 16 99 Room Air 11/02/17 17:30 72 16 154/80 (104) 97 11/02/17 15:28 98.2 75 16 130/64 (86) 97 Imaging Last Impressions Abdomen/Pelvis CT 11/02/17 1725 Signed Impressions: Service Date/Time: Thursday, November 02, 2017 21:08 - CONCLUSION: Large left inguinal region mass as described. Otherwise unremarkable Dheeraj Pascual MD Head CT 11/02/17 0000 Signed Impressions: Service Date/Time: Thursday, November 02, 2017 16:55 - CONCLUSION: No acute findings in the brain. Emile Whitfield MD Laboratory Test 11/02/17 16:05 White Blood Count 9.5 TH/MM3 Red Blood Count 4.38 MIL/MM3 Hemoglobin 14.1 GM/DL Hematocrit 40.7 % Mean Corpuscular Volume 92.9 FL Mean Corpuscular Hemoglobin 32.1 PG Mean Corpuscular Hemoglobin Concent 34.5 % Red Cell Distribution Width 13.8 % Platelet Count 203 TH/MM3 Mean Platelet Volume 8.3 FL Neutrophils (%) (Auto) 79.9 % Lymphocytes (%) (Auto) 9.9 % Monocytes (%) (Auto) 8.4 % Eosinophils (%) (Auto) 1.5 % Basophils (%) (Auto) 0.3 % Neutrophils # (Auto) 7.6 TH/MM3 Lymphocytes # (Auto) 0.9 TH/MM3 Monocytes # (Auto) 0.8 TH/MM3 Eosinophils # (Auto) 0.1 TH/MM3 Basophils # (Auto) 0.0 TH/MM3 CBC Comment DIFF FINAL Differential Comment Prothrombin Time 12.1 SEC Prothromb Time International Ratio 1.2 RATIO Activated Partial Thromboplast Time 26.9 SEC Urine Color YELLOW Urine Turbidity CLEAR Urine pH 5.0 Urine Specific [place] 1.010 Urine Protein NEG mg/dL Urine Glucose (UA) NEG mg/dL Urine Ketones NEG mg/dL Urine Occult Blood NEG Urine Nitrite NEG Urine Bilirubin NEG Urine Urobilinogen LESS THAN 2.0 MG/DL Urine Leukocyte Esterase NEG Urine RBC LESS THAN 1 /hpf Urine WBC LESS THAN 1 /hpf Urine Hyaline Casts 19 /lpf Urine Mucus FEW /lpf Microscopic Urinalysis Comment CULT NOT INDICATED Blood Urea Nitrogen 29 MG/DL Creatinine 1.49 MG/DL Random Glucose 152 MG/DL Total Protein 8.3 GM/DL Albumin 3.9 GM/DL Calcium Level 9.3 MG/DL Alkaline Phosphatase 101 U/L Aspartate Amino Transf (AST/SGOT) 21 U/L Alanine Aminotransferase (ALT/SGPT) 25 U/L Total Bilirubin 0.6 MG/DL Sodium Level 135 MEQ/L Potassium Level 3.4 MEQ/L Chloride Level 94 MEQ/L Carbon Dioxide Level 31.7 MEQ/L Anion Gap 9 MEQ/L Estimat Glomerular Filtration Rate 45 ML/MIN Lipase 100 U/L Physical Examination HEENT: PERRL; normocephalic; atraumatic; no jaundice. [place] CHEST: CTA CARDIAC: RRR ABDOMEN: Soft, nondistended, nontender; no hepatosplenomegaly; bowel sounds are present in all four quadrants. EXTREMITIES: No clubbing, cyanosis, or edema. SKIN: Normal; no rash; no jaundice. SIGNALS INTELLIGENCE SUPERINTENDENT: No focal deficits; alert and oriented times three. slow to answer (Patito Pagan) Assessment and Plan Plan ASSESSMENT - nausea, ? vomiting- could be gastroparesis vs gastritis vs PUD. CT no acute findings. labs relatively unremarkable. Pt to have GES shortly. does have DM. limited historian. he denies any vomiting, admits dry heaving and says he hasn't eaten in awhile. was on eliquis, this has been held today. PLAN - GES today - poss EGD timing TBD - NPO for GES - further recs to follow pt seen by myself and Dr Roberts and this note is on his behalf. (Patito Pagan) Physician Comments Seen ad eamined with RONI, GES normal. EGD planned for tomorrow.Discussed with pt. Thank you (Faby Roberts MD) Patito Pagan Nov 03, 2017 08:32 Faby Roberts MD Nov 03, 2017 14:44
[2017-11-03] MEDS: SODIUM CHLORIDE 0.9% FLUSH 10 ML FLUSH IV FLUSH SCH ×2 (09:00→22:23)
[2017-11-03 09:58] LABS: AUTOMATED NEUTROPHIL # 4.7 TH/MM3 (1.8-7.7); BASOPHIL % 0.4 % (0.0-2.0); EOSINOPHIL # 0.1 TH/MM3 (0-0.4); EOSINOPHIL % 1.5 % (0.0-4.0); HEMATOCRIT 40.6 % (39.0-51.0); HEMOGLOBIN 14.1 GM/DL (13.0-17.0); LYMPH % 14.7 % (9.0-44.0); LYMPHOCYTE # 0.9 TH/MM3 (1.0-4.8); MEAN CELL VOLUME 92.4 FL (80.0-100.0); MEAN CORPUSCULAR HEMOGLOBIN 32.1 PG (27.0-34.0); MEAN CORPUSCULAR HGB CONC 34.8 % (32.0-36.0); MEAN PLATELET VOLUME 8.2 FL (7.0-11.0); MONO % 8.5 % (0.0-8.0); MONOCYTE # 0.5 TH/MM3 (0-0.9); NEUT % 74.9 % (16.0-70.0); PLATELET COUNT 166 TH/MM3 (150-450); RED BLOOD COUNT 4.39 MIL/MM3 (4.50-5.90); RED CELL DISTRIBUTION WIDTH 13.7 % (11.6-17.2); WHITE BLOOD COUNT 6.2 TH/MM3 (4.0-11.0)
[2017-11-03 10:12] LABS: BICARBONATE 31.2 MEQ/L (21.0-32.0); CALCIUM 9.2 MG/DL (8.5-10.1); CREATININE 1.08 MG/DL (0.60-1.30)
--- NOTE | 2017-11-03 12:58 | RADRPT ---
EXAM DATE/TIME: 11/03/2017 10:15 [facility] COMPARISON: No previous studies available for comparison. INDICATIONS : Nausea and vomiting for 4 days. DOSE: 1 mCi Tc99m Sulfur Colloid Labeled Whole egg PO MEDICATONS: 1.) 5 mg Reglan IV at 90 minutes IMAGIN hrs MEDICAL HISTORY : Diabetes mellitus type 2. Hypercholesterolemia. Congestive heart failure. SURGICAL HISTORY : Inguinal hernia repair. ENCOUNTER: Initial ACUITY: 4 - 6 days PAIN SCALE: 1/10 LOCATION: Right upper quadrant TECHNIQUE: Following the oral ingestion of radiotracer-labeled meal, dynamic sequential images in the [place] projec tion were acquired with simultaneous computer acquisition. The data set was decay-corrected. FINDINGS: LAG PHASE: There is 15 minutes before onset of gastric emptying. EMPTYING: Gastric emptying kinetics are linear. The decay-corrected, back-extrapolated half-time of emptying i s 63 minutes. (Normal for this lab is 45- 90 minutes.) INTERVENTION: No change in emptying after Reglan administration at 90 minutes CONCLUSION: 1. Gastric emptying time within normal range. No significant change with Reglan. Alex Leyva MD on November 03, 2017 at 12:54 Board Certified Radiologist. This report was verified electronically.
[2017-11-03] MEDS: LISINOPRIL 10 MG TAB PO SCH (13:59)
[2017-11-03] MEDS: CARVEDILOL 3.125 MG TAB PO SCH ×2 (14:00→22:23)
[2017-11-03] MEDS: LEVOTHYROXINE SODIUM 50 MCG TAB PO SCH (14:00)
--- NOTE | 2017-11-03 15:47 | HHI.PR ---
Subjective Remarks Follow up for nausea/vomiting. The patient is seen s/p gastric emptying study which was unremarkable. He states he ate an egg during the study and he was able to keep it down. He has occasional bouts of nausea however much improved since his arrival. Denies any recent vomiting. Denies abdominal pain, fevers, chills. He states his stools are becoming more formed, recently had a small nonbloody "maribell" bowel movement today. He is looking forward to eating. He agrees to EGD tomorrow. He has no other medical complaints at this time. Discussed results of inguinal mass. The patient states he has known about this for many years, biopsied around 2008, and was told it was benign. Objective Vitals Vital Signs Date Time Temp Pulse Resp B/P (MAP) Pulse Ox O2 Delivery O2 Flow Rate FiO2 11/03/17 13:17 98.3 76 18 166/76 (106) 98 11/03/17 07:39 97.8 75 16 166/81 (109) 98 11/03/17 01:19 73 11/03/17 00:22 97.8 74 18 155/74 (101) 94 11/02/17 23:51 11/02/17 19:39 73 18 156/73 (100) 99 Room Air 11/02/17 17:40 73 16 99 Room Air 11/02/17 17:30 72 16 154/80 (104) 97 Result Diagram: 11/03/17 0855 11/03/17 0855 Imaging Last Impressions Gastric Emptying Nuclear Medicine 11/03/17 0000 Signed Impressions: Service Date/Time: Friday, November 03, 2017 10:15 - CONCLUSION: 1. Gastric emptying time within normal range. No significant change with Reglan. Alex Leyva MD Abdomen/Pelvis CT 11/02/17 1725 Signed Impressions: Service Date/Time: Thursday, November 02, 2017 21:08 - CONCLUSION: Large left inguinal region mass as described. Otherwise unremarkable Dheeraj Pascual MD Head CT 11/02/17 0000 Signed Impressions: Service Date/Time: Thursday, November 02, 2017 16:55 - CONCLUSION: No acute findings in the brain. Emile Whitfield MD Objective Remarks GENERAL: Well-nourished, well-developed pleasant elderly male patient in NAD. Hard of hearing. SKIN: Warm and dry. No rash. HEENT: Normocephalic. Atraumatic.Pupils equal and round. Mucous membranes pink and moist. NECK: Supple. Trachea midline. CARDIOVASCULAR: Regular rate and rhythm. S1, S2 noted. No murmur appreciated. RESPIRATORY: No accessory muscle use. Clear to auscultation. Breath sounds equal bilaterally. GASTROINTESTINAL: Abdomen soft, non-tender, nondistended. Normoactive bowel sounds x4. MUSCULOSKELETAL: No obvious deformities. Extremities without clubbing, cyanosis , or edema. NEUROLOGICAL: Awake and alert. No obvious cranial nerve deficits. Motor grossly within normal limits. Normal speech. PSYCHIATRIC: Appropriate mood and affect; insight and judgment normal. Medications and IVs Current Medications Medications (Trade) Dose Ordered Sig/Thea Route Start Time Stop Time Status Last Admin (NS Flush) 2 ml UNSCH PRN IV FLUSH 11/02/17 23:00 (NS Flush) 2 ml BID IV FLUSH 11/03/17 09:00 11/03/17 09:00 (Zofran Inj) 4 mg Q6H PRN IVP 11/02/17 23:00 (Reglan Inj) 5 mg Q6H PRN IV PUSH 11/02/17 23:00 (D50w (Vial) Inj) 50 ml UNSCH PRN IV PUSH 11/02/17 23:00 (Glucagon Inj) 1 mg UNSCH PRN OTHER 11/02/17 23:00 (NovoLOG SUPPLEMENTAL SCALE) 1 ACHS SLIDING SCALE SQ 11/03/17 08:00 (Norvasc) 10 mg DAILY PO 11/03/17 09:00 11/03/17 14:00 (Coreg) 3.125 mg BID PO 11/03/17 09:00 11/03/17 14:00 (Synthroid) 50 mcg DAILY PO 11/03/17 09:00 11/03/17 14:00 (Prinivil) 10 mg DAILY PO 11/03/17 09:00 11/03/17 13:59 (Pravachol) 20 mg DAILY PO 11/02/17 23:15 11/03/17 00:30 Potassium Chloride/Sodium Chloride 1,000 ml @ 75 mls/hr [id number] IV 11/02/17 23:15 11/03/17 00:29 A/P Assessment and Plan 82-year-old male with past medical history significant for hypertension, hyperlipidemia, diabetes mellitus, CHF (echo done 12/20/16 showed an EF of 45-50% ) and history of TIA presents the ED with nausea and vomiting. Abdominal pain/nausea/vomiting/postprandial emesis: CT abdomen and pelvis showed a large left inguinal mass, chronic; otherwise no acute findings. Concern for gastroparesis, gastritis, esophagitis/stricture. -Gastric emptying study unremarkable -Start Protonix 40mg daily -Supportive treatment with IVF, antiemetics prn, and pain control as needed -Gastroenterology consulted, appreciate recommendations -Plan for EGD tomorrow Inguinal mass -Patient reports this was initially diagnosed in 2008 and was biopsied, biopsy showed benign mass -Follow-up as an outpatient Diabetes mellitus -Holding patient's metformin for now -Sliding scale insulin -Monitor blood glucose Atrial Fibrillation/Hypertension/hyperlipidemia/CHF: chronic, stable, does not appear to be in fluid overload -Continue home medications including coreg, norvasc, lisinopril, statin -Aspirin, Eliquis and Bumex on hold for now History of TIA -Holding Aspirin and Eliquis for upcoming procedure DVT Prophylaxis: teds/SCDs; Eliquis on hold for upcoming EGD Discharge Planning Hopefully discharge tomorrow after EGD if patient tolerating oral intake. Sita Gonzalez PA-C Nov 03, 2017 3:47 pm
[2017-11-03] MEDS: PANTOPRAZOLE SOD 40 MG DELAYED RELEASE TAB PO SCH (17:48)
--- NOTE | 2017-11-03 19:19 | EKG ---
Date Performed: 11/02/2017 Time Performed: 16:04:10 PTAGE: 82 years EKG: REGULAR SUPRAVENTRICULAR RHYTHM SIGNIFICANT BASELINE ARTIFARCT PRECLUDING ANY FURTHER INTER PRETATION. MODERATE ST DEPRESSION ABNORMAL ECG PREVIOUS TRACING : 10/20/2017 03.38 DOCTOR: Lisa Bah Interpretating Date/Time 11/06/2017 20:39:00
[2017-11-03] MEDS ORDERED: POTASSIUM CHLORIDE INJ 20 MEQ in SODIUM CHLOR 0.9% 1000 ML INJ 1,000 ML IV SCH (22:46)
[2017-11-04 00:02] VITALS: PULSE 73
[2017-11-04] MEDS: NS + KCL 20 MEQ INJ 1,000 ML IV SCH (02:16)
[2017-11-04 04:22] VITALS: PULSE 74
[2017-11-04] MEDS ORDERED: POVIDONE IODINE 5% (ANTISEPSIS KIT) 4 APPLICATIONS EACH NARE PRN (06:30)
[2017-11-04] MEDS ORDERED: LACTATED RINGER'S 1000 ML IV PRN (06:30)
[2017-11-04] MEDS ORDERED: SODIUM CHLORID 0.9% 500 ML IV PRN (06:30)
[2017-11-04] MEDS ORDERED: CHLORHEXIDINE GLUCONATE 2 % 1 PACK (2 CLOTHS) TOPICAL PRN (06:30)
[2017-11-04] MEDS: INSULIN ASPART SUPPLEMENTAL SCALE SQ SCH ×2 (07:46→12:00)
[2017-11-04 08:00] VITALS: PULSE 80
[2017-11-04] MEDS: SODIUM CHLORIDE 0.9% FLUSH 10 ML FLUSH IV FLUSH SCH (08:45)
[2017-11-04] MEDS: LEVOTHYROXINE SODIUM 50 MCG TAB PO SCH (08:45)
[2017-11-04] MEDS: LISINOPRIL 10 MG TAB PO SCH (08:45)
[2017-11-04] MEDS: PANTOPRAZOLE SOD 40 MG DELAYED RELEASE TAB PO SCH (08:45)
[2017-11-04] MEDS: CARVEDILOL 3.125 MG TAB PO SCH (08:45)
[2017-11-04] MEDS: PRAVASTATIN SOD 20 MG TAB PO SCH (08:45)
[2017-11-04 09:08] LABS: BICARBONATE 27.1 MEQ/L (21.0-32.0); CALCIUM 9.7 MG/DL (8.5-10.1); CREATININE 1.18 MG/DL (0.60-1.30); MAGNESIUM 1.9 MG/DL (1.5-2.5)
--- NOTE | 2017-11-04 09:11 | HHI.PR ---
Subjective Remarks Follow up for nausea/vomiting. The patient is seen prior to EGD today. He reports significant improvement of his symptoms. He denies any further nausea or vomiting. Denies any abdominal pain, fevers, or chills. He states he ate a very large dinner last night and tolerated well. He wants to go home after procedure today. Objective Vitals Vital Signs Date Time Temp Pulse Resp B/P (MAP) Pulse Ox O2 Delivery O2 Flow Rate FiO2 11/04/17 04:22 74 11/04/17 00:02 73 11/03/17 23:40 98.0 74 18 152/79 (103) 96 11/03/17 22:26 96.6 11/03/17 22:23 76 20 140/72 (94) 98 11/03/17 20:09 74 11/03/17 16:49 98.1 79 18 126/65 (85) 99 11/03/17 13:17 98.3 76 18 166/76 (106) 98 I/O 11/03/17 11/03/17 11/03/17 11/04/17 11/04/17 11/04/17 07:00 15:00 23:00 07:00 15:00 23:00 Intake Total 1500 ml Balance 1500 ml Intake Oral 500 ml IV Total 1000 ml # Voids 1 Result Diagram: 11/03/17 0855 11/03/17 0855 Imaging Last Impressions Gastric Emptying Nuclear Medicine 11/03/17 0000 Signed Impressions: Service Date/Time: Friday, November 03, 2017 10:15 - CONCLUSION: 1. Gastric emptying time within normal range. No significant change with Reglan. Alex Leyva MD Abdomen/Pelvis CT 11/02/17 1725 Signed Impressions: Service Date/Time: Thursday, November 02, 2017 21:08 - CONCLUSION: Large left inguinal region mass as described. Otherwise unremarkable Dheeraj Pascual MD Head CT 11/02/17 0000 Signed Impressions: Service Date/Time: Thursday, November 02, 2017 16:55 - CONCLUSION: No acute findings in the brain. Emile Whitfield MD Objective Remarks GENERAL: Well-nourished, well-developed pleasant elderly male patient in NAD. Hard of hearing. SKIN: Warm and dry. No rash. HEENT: Normocephalic. Atraumatic.Pupils equal and round. Mucous membranes pink and moist. CARDIOVASCULAR: Regular rate and rhythm. S1, S2 noted. No murmur appreciated. RESPIRATORY: No accessory muscle use. Clear to auscultation. Breath sounds equal bilaterally. GASTROINTESTINAL: Abdomen soft, non-tender, nondistended. Normoactive bowel sounds x4. MUSCULOSKELETAL: No obvious deformities. Extremities without clubbing, cyanosis , or edema. NEUROLOGICAL: Awake and alert. No obvious cranial nerve deficits. Motor grossly within normal limits. Normal speech. PSYCHIATRIC: Appropriate mood and affect; insight and judgment normal. Medications and IVs Current Medications Medications (Trade) Dose Ordered Sig/Thea Route Start Time Stop Time Status Last Admin (NS Flush) 2 ml UNSCH PRN IV FLUSH 11/02/17 23:00 (NS Flush) 2 ml BID IV FLUSH 11/03/17 09:00 11/04/17 08:45 (Zofran Inj) 4 mg Q6H PRN IVP 11/02/17 23:00 (Reglan Inj) 5 mg Q6H PRN IV PUSH 11/02/17 23:00 (D50w (Vial) Inj) 50 ml UNSCH PRN IV PUSH 11/02/17 23:00 (Glucagon Inj) 1 mg UNSCH PRN OTHER 11/02/17 23:00 (NovoLOG SUPPLEMENTAL SCALE) 1 ACHS SLIDING SCALE SQ 11/03/17 08:00 11/03/17 18:00 (Norvasc) 10 mg DAILY PO 11/03/17 09:00 11/04/17 08:45 (Coreg) 3.125 mg BID PO 11/03/17 09:00 11/04/17 08:45 (Synthroid) 50 mcg DAILY PO 11/03/17 09:00 11/04/17 08:45 (Prinivil) 10 mg DAILY PO 11/03/17 09:00 11/04/17 08:45 (Pravachol) 20 mg DAILY PO 11/02/17 23:15 11/04/17 08:45 (Protonix) 40 mg DAILY PO 11/03/17 15:45 11/04/17 08:45 Lactated Ringer's 1,000 ml @ 30 mls/hr Q24H PRN IV 11/04/17 06:30 11/07/17 06:29 Sodium Chloride 500 ml @ 30 mls/hr [id number] PRN IV 11/04/17 06:30 11/07/17 06:29 (Betadine 5% Antisepsis Kit) 1 applic PRODUCTION PATTERN MAKER PRN EACH NARE 11/04/17 06:30 11/07/17 06:29 (Chlorhexidine 2% Cloth) 3 pack PRODUCTION PATTERN MAKER PRN TOPICAL 11/04/17 06:30 11/07/17 06:29 A/P Assessment and Plan 82-year-old male with past medical history significant for hypertension, hyperlipidemia, diabetes mellitus, CHF (echo done 12/20/16 showed an EF of 45-50% ) and history of TIA presents the ED with nausea and vomiting. Abdominal pain/nausea/vomiting/postprandial emesis: CT abdomen and pelvis showed a large left inguinal mass, chronic; otherwise no acute findings. Concern for gastroparesis, gastritis, esophagitis/stricture. -Gastric emptying study unremarkable -Start Protonix 40mg daily -Supportive treatment with IVF, antiemetics prn, and pain control as needed -Gastroenterology consulted, appreciate recommendations -EGD 11/04 showed normal esophagus, erythematous gastritis-biopsies taken, normal duodenum -GI recommending PPI, anti-reflux regimen, avoid NSAIDs, and outpatient colonoscopy -Will advance diet, if tolerates well, likely discharge today Inguinal mass -Patient reports this was initially diagnosed in 2008 and was biopsied, biopsy showed benign mass -Follow-up as an outpatient Diabetes mellitus -Holding patient's metformin for now -Sliding scale insulin -Monitor blood glucose Atrial Fibrillation/Hypertension/hyperlipidemia/CHF: chronic, stable, does not appear to be in fluid overload -Continue home medications including coreg, norvasc, lisinopril, statin -Aspirin, Eliquis and Bumex to be restarted tomorrow (held for EGD and while NPO) History of TIA -Restart Aspirin and Eliquis after procedure DVT Prophylaxis: teds/SCDs; Eliquis on hold for EGD Discharge Planning Discharge later today if tolerating diet post EGD and if cleared by GI. 1400hrs: Discussed with Marivel TAMAYO, patient cleared by GI, recommends follow up for biopsy results and outpatient colonoscopy. Patient tolerating oral intake. Will discharge. Discharge patient to home Condition on discharge: Improved Heart Healthy/Diabetic Diet as tolerated Ad Domitila activity Rx written: Protonix 40mg daily Follow-up with primary care physician and gastroenterology Sita Gonzalez PA-C Nov 04, 2017 9:11 am
[2017-11-04 09:20] VITALS: BP 163/80; PULSE 75; RESP 18; TEMP 97.6; O2SAT 97
--- NOTE | 2017-11-04 11:21 | GIPROC ---
[facility] [address] [facility]. [facility] [place], [address] EGD PROCEDURE REPORT EXAM DATE: 11/04/2017 PATIENT NAME: Damir Buck MR #: [id number] BIRTHDATE: 1935 ATTENDING: Faby Roberts MD ORDER #: [id number] [employer] ASS[employer]ET[employer]: Sandie Godwin and Adrian Otero STATUS: inpatient INDICATIONS: The patient is a 82 yr old male here for an EGD due to epigastric abdominal pain and vomiting PROCEDURE PERFORMED: EGD w/ biopsy MEDICATIONS: Per Anesthesia and None. TOPICAL ANESTHETIC: CONSENT: The patient understands the risks and benefits of the procedure and understands that these risks include, but are not limited to: sedation, allergic reaction, infection, perforation and/or bleeding. Alternative means of evaluation and treatment include, among others: physical exam, x-rays, and/or surgical intervention. The patient elects to proceed with this endoscopic procedure. medical equipment was checked for proper function. Hand hygiene and appropriate measures for infection prevention was taken. After the risks, benefits and alternatives of the procedure were thoroughly explained, Informed consent was verified, confirmed and timeout was successfully executed by the treatment team. The patient was anesthetized with topical anesthesia and the Pentax [id number] endoscope was introduced through the mouth and advanced to the second portion of the duodenum. Retroflexed views revealed no abnormalities The gastroscope was then slowly withdrawn and removed. ESOPHAGUS: The mucosa of the esophagus appeared normal. STOMACH: There was erythematous moderate gastritis in the gastric antrum. A biopsy was performed using cold forceps. Sample sent for histology. DUODENUM: The duodenal mucosa appeared normal in the bulb and second portion of the duodenum. ADVERSE EVENTS: There were no complications. IMPRESSIONS: 1. The esophagus appeared normal 2. There was erythematous gastritis in the gastric antrum; biopsy was performed 3. Normal duodenal mucosa in the bulb and second portion of the duodenum 4. Retroflexed views revealed no abnormalities RECOMMENDATIONS: 1. Await biopsy results. Biopsy results will not be ready for 7-10 days. If you don't hear from us in two weeks, call our office for biopsy results. 2. Anti-reflux regimen 3. Continue PPI 4. Colonoscopy 5. Avoid NSAIDS PATIENT CONDITION: stable DISPOSITION: Inpatient REPEAT EXAM: Return 3 years EGD pending biopsy results Faby Roberts MD eSigned: Faby Roberts MD 11/04/2017 11:21 AM cc: PATIENT NAME: Damir Buck MR#: [id number]
[2017-11-04] MEDS ORDERED: PROPOFOL 200 MG/20 ML AMP IV ONE (12:00)
[2017-11-04 12:07] VITALS: BP 143/70; PULSE 76; RESP 18; TEMP 97.7; O2SAT 97
[2017-11-04] MEDS ORDERED: PANT40TA3 PO (13:46)
--- NOTE | 2017-11-04 13:48 | HHI.DCPOC ---
Discharge Care Plan Diagnosis: (1) Gastritis (2) Intractable nausea and vomiting Goals to Promote Your Health * To prevent worsening of your condition and complications * To maintain your health at the optimal level Directions to Meet Your Goals Take your medications as prescribed Follow your dietary instruction Follow activity as directed Keep your appointments as scheduled Take your immunizations and boosters as scheduled If your symptoms worsen call your PCP, if no PCP go to Urgent Care Center or Emergency Room Smoking is Dangerous to Your Health. Avoid second hand smoke Call the 24-hour hour crisis hotline for domestic abuse at Sita Gonzalez PA-C Nov 04, 2017 1:48 pm
[2017-11-04 15:30] VITALS: BP 149/70; PULSE 77; RESP 18; TEMP 98.1; O2SAT 98
== END 2017-11-04 16:53 | disposition home or self-care (01) ==
LOC: NEPC 15:26 → NEDA 22:16 → NEPHCDU 11-03 00:17
PROVIDERS: ADMIT Family Medicine; ATTEND Family Medicine
DX: K29.50 Unspecified chronic gastritis without bleeding (principal); E11.9 Type 2 diabetes mellitus without complications; I11.0 Hypertensive heart disease with heart failure; I50.9 Heart failure, unspecified; E78.00 Pure hypercholesterolemia, unspecified; E03.9 Hypothyroidism, unspecified; R94.31 Abnormal electrocardiogram [ECG] [EKG]; G93.89 Other specified disorders of brain; I48.91 Unspecified atrial fibrillation; N28.9 Disorder of kidney and ureter, unspecified; R51 Headache; H91.90 Unspecified hearing loss, unspecified ear; Z86.73 Personal history of transient ischemic attack (TIA), and cerebral infarction without residual deficits; Z79.899 Other long term (current) drug therapy; Z79.84 Long term (current) use of oral hypoglycemic drugs; Z79.01 Long term (current) use of anticoagulants; Z87.891 Personal history of nicotine dependence; Z79.82 Long term (current) use of aspirin
CPT/HCPCS: 00731; 43239; 70450; 74176; 78264; 80048; 80053; 81001; 82948; 83690; 83735; 85025; 85610; 85730; 88305; 88312; 93005; 96360; 96361; 96372; 99285; A9541; G0378; J1815; J3480; J7040; Q9963